=== PATIENT | female | born 1955 | race Caucasian/White ===

== ENCOUNTER → 2023-05-28 09:25 | Outpatient (REF) | payer BC, SELFPAY | LOC: WDC 09:25 | PROVIDERS: ATTENDING PHYSICIAN Internal Medicine; FAMILY PHYSICIAN Internal Medicine | DX: Z12.31 Encounter for screening mammogram for malignant neoplasm of breast (principal) | CPT/HCPCS: 77063; 77067 ==

== ENCOUNTER 2024-07-15 18:01 | Inpatient (IN) | payer BC, SELFPAY ==
[2024-07-15] VITALS (14 sets, daily range): BP systolic 92–139; BP diastolic 70–120; BMI 25.7
[2024-07-15 14:06] LABS: Hematocrit 38.8 % (37.0-47.0); Hemoglobin 12.8 g/dL (12.0-16.0); Mean Corpuscular Hgb 28.4 pg (27.0-31.0); Mean Platelet Volume 11.1 fL (7.4-10.4); Platelet Count 98 10^3/uL (130-400); Red Blood Cell Count 4.51 10^6/uL (4.20-5.40); Red Cell Dist. Width 16.9 % (11.5-14.5); White Blood Cell Count 2.6 10^3/uL (4.8-10.8)
[2024-07-15 14:07] LABS: ALT (SGPT) 40 U/L (0-35); AST (SGOT) 32 U/L (14-36); Albumin 3.8 g/dl (3.5-5.0); Alkaline Phosphatase 121 U/L (38-126); Blood Urea Nitrogen 20 mg/dl (7-17); Calcium 8.9 mg/dl (8.4-10.2); Carbon Dioxide 24 mmol/L (22-30); Chloride 102 mmol/L (98-107); Glucose 112 mg/dl (70-99); Potassium 3.1 mmol/L (3.5-5.1); Sodium 133 mmol/L (135-145); Total Bilirubin 0.5 mg/dl (0.2-1.3); Total Protein 6.9 g/dl (6.3-8.2); eGFR > 60.00
[2024-07-15 14:18] LABS: NT-proBNP 4510 pg/ml; Troponin I 0.013 ng/ml
[2024-07-15 14:55] LABS: % Basophils 1.1 % (0-2); % Eosinophils 4.6 % (0-6); % Immature Granulocytes 0.8 % (0-0.5); % Lymphocytes 14.4 % (20.5-51.1); % Monocytes 6.1 % (1.7-9.3); Absolute Eosinophils 0.1 10^3/uL (0-0.7); Absolute Lymphocytes 0.4 10^3/uL (1.2-3.4); Absolute Monocytes 0.2 10^3/uL (0.1-0.6); Absolute Neutrophils 1.9 10^3/uL (1.4-6.5); Nucleated Red Blood Cells % 0 %
--- NOTE | 2024-07-15 16:43 | ED.GENMED ---
History of Present Illness
<Jacky Lin PA-C - Last Filed: 07/15/24 17:04>
General
Chief Complaint: Breathing Problem
Time Seen by Provider: 07/15/24 13:21
History of Present Illness
History of Present Illness:
68-year-old female with history of stage IV colorectal carcinoma currently being treated with chemotherapy at [place] presents to the emergency department for evaluation of shortness of breath for the past 4 days. This is apparently a known
potential side effect of her chemo regimen. She denies chest pain or leg swelling. Denies orthopnea, shortness of breath is persistent and not affected by exertion. Denies fevers or coughing. No abdominal pain
Review of Systems
<Jacky Lin PA-C - Last Filed: 07/15/24 17:04>
Review of Systems
Allergies reviewed?: Yes
All Other Systems: ROS reviewed and negative except as documented in HPI and ROS
Phy Exam
<aJcky Lin PA-C - Last Filed: 07/15/24 17:04>
Physical Exam
Physical Exam:
GEN: Well appearing, NAD, WDWN
HEENT: Oral mucosa moist, no scleral icterus
Cardiac: Irregular rhythm with variable rate
Lung: No respiratory distress, no tachypnea, dry crackles heard at the bases
MSK: No gross deformity or injuries, no lower extremity edema
Skin: Good color, no pallor or jaundice, no rashes
Neuro: AO x3, moves all extremities freely
Psych: Calm, cooperative
Scores
<CRISTINA Barboza Last Filed: 07/15/24 17:04>
Heart Failure Risk
Heart Failure Risk Score: Yes
History of Stroke or TIA: No
History of intubation for respiratory distress: No
Heart rate on ED arrival >/= 110: Yes
SaO2 <90% on arrival on room air: No
HR >/=110 during 3min walk test (or too ill to perform test): Yes
ECG has acute ischemic changes: No
Urea >/=12mmol/L (BUN 33.6mg/dL): No
Serum CO2>/=35mmol/L: No
Troponin I or T elevated to NC Level (0.4mg/dL): No
NT-proBNP >/=5,000ng/L (5,000pg/ml): Yes
HF Risk Score: 3
Admission Status: HIGH RISK 15.9% Consider SNF treatment or admission to hospital
<Delbert Marley PA-C - Last Filed: 07/15/24 17:18>
Heart Failure Risk
HF Risk Score: 3
Admission Status: HIGH RISK 15.9% Consider SNF treatment or admission to hospital
Course
<Jacky Lin PA-C - Last Filed: 07/15/24 17:04>
Orders/Labs/Results
Orders:
Orders
07/15/24 10:54
Electrocardiogram (*1) Urgent
Reason for Study: Other
Other Reason for Exam: Respiratory Distress
CR Chest - 2 Views Urgent
Comment:
Reason For Exam: respiratory distress
07/15/24 13:47
Complete Blood Count/With Diff Urgent
Comprehensive Metabolic Panel Urgent
NT-proBNP Urgent
TSH Reflex To Free T4 Urgent
Comment: ADD ON
Troponin I Urgent
07/15/24 14:42
CT Chest PE Study Urgent
Comment:
Reason For Exam: SOB, on chemo
07/15/24 17:04
Metoprolol [Lopressor] 25 mg PO NOW STA
07/15/24 17:10
Add On- LAB Urgent
Tests Added?: TSH w/Reflex
Abnormal Lab Results
07/15/24
13:47
WBC 2.6 L 10^3/uL
(4.8-10.8)
RDW 16.9 H %
(11.5-14.5)
Plt Count 98 L 10^3/uL
(130-400)
MPV 11.1 H fL
(7.4-10.4)
Absolute Lymphs (auto) 0.4 L 10^3/uL
(1.2-3.4)
Immature Gran % 0.8 H %
(0-0.5)
Lymphocytes % 14.4 L %
(20.5-51.1)
Sodium 133 L mmol/L
(135-145)
Potassium 3.1 L mmol/L
(3.5-5.1)
BUN 20 H mg/dl
(7-17)
Glucose 112 H mg/dl
(70-99)
ALT 40 H U/L
(0-35)
07/15/24 13:47
07/15/24 13:47
Vital Signs
Initial and Last Documented VS:
Initial Vital Signs
Temp Pulse Resp BP Pulse Ox
97.6 F 104 16 109/70 100
07/15/24 10:49 07/15/24 10:49 07/15/24 10:49 07/15/24 10:49 07/15/24 10:49
Last Documented Vital Signs
Temp Pulse Resp BP Pulse Ox
97.6 F 92 19 133/82 99
07/15/24 10:49 07/15/24 17:10 07/15/24 15:00 07/15/24 17:10 07/15/24 15:30
<Delbert Marley PA-C - Last Filed: 07/15/24 17:18>
Orders/Labs/Results
Orders:
Orders
07/15/24 10:54
Electrocardiogram (*1) Urgent
Reason for Study: Other
Other Reason for Exam: Respiratory Distress
CR Chest - 2 Views Urgent
Comment:
Reason For Exam: respiratory distress
07/15/24 13:47
Complete Blood Count/With Diff Urgent
Comprehensive Metabolic Panel Urgent
NT-proBNP Urgent
TSH Reflex To Free T4 Urgent
Comment: ADD ON
Troponin I Urgent
07/15/24 14:42
CT Chest PE Study Urgent
Comment:
Reason For Exam: SOB, on chemo
07/15/24 17:04
Metoprolol [Lopressor] 25 mg PO NOW STA
07/15/24 17:10
Add On- LAB Urgent
Tests Added?: TSH w/Reflex
Abnormal Lab Results
07/15/24
13:47
WBC 2.6 L 10^3/uL
(4.8-10.8)
RDW 16.9 H %
(11.5-14.5)
Plt Count 98 L 10^3/uL
(130-400)
MPV 11.1 H fL
(7.4-10.4)
Absolute Lymphs (auto) 0.4 L 10^3/uL
(1.2-3.4)
Immature Gran % 0.8 H %
(0-0.5)
Lymphocytes % 14.4 L %
(20.5-51.1)
Sodium 133 L mmol/L
(135-145)
Potassium 3.1 L mmol/L
(3.5-5.1)
BUN 20 H mg/dl
(7-17)
Glucose 112 H mg/dl
(70-99)
ALT 40 H U/L
(0-35)
07/15/24 13:47
07/15/24 13:47
Vital Signs
Initial and Last Documented VS:
Initial Vital Signs
Temp Pulse Resp BP Pulse Ox
97.6 F 104 16 109/70 100
07/15/24 10:49 07/15/24 10:49 07/15/24 10:49 07/15/24 10:49 07/15/24 10:49
Last Documented Vital Signs
Temp Pulse Resp BP Pulse Ox
97.6 F 92 19 133/82 99
07/15/24 10:49 07/15/24 17:10 07/15/24 15:00 07/15/24 17:10 07/15/24 15:30
<Jacky Lin PA-C - Last Filed: 07/15/24 17:04>
MDM/Problems Addressed
MDM/Problems Addressed:
Due to active cancer on chemotherapy the patient was sent for a PE study which was negative for pulmonary embolism. The findings of fibrotic changes to the lower lobes is consistent with her dry crackles on exam, patient states this has been noted
to her before however she does not formally carry a diagnosis of pulmonary fibrosis. Elevated BNP is suspicious for cardiac dysfunction in the setting of her active chemo treatment. She does appear clinically stable and does not appear hypoxic or
in any respiratory distress. Telemetry does show an occasional tachyarrhythmia however it appears to be atrial tachycardia with frequent PACs as there are numerous stretches were visible P waves are seen, I do not feel this represents atrial
fibrillation.
Onc Doc at [facility] is Dr Bartolome Hernandez
Will admit to hospitalists for further cardiac workup
<Jacky Lin PA-C - Last Filed: 07/15/24 17:04>
*Critical Care Note
Total Time (30-74mins, 75-104mins- exclusive of procedures): Not Applicable
<Delbert Marley PA-C - Last Filed: 07/15/24 17:18>
Patient Management
Discussion with other providers: [employer]per
Escalation/DeEscalation of care consider admission/obs:
Spoke to patient's physician at [facility]. Made aware patient staying for further eval. Patient had Echo done in April 2024 at [facility] with reportedly normal EF per report. Agrees with patient staying for further eval
ED Attending Note
<Jacky Lin PA-C - Last Filed: 07/15/24 17:04>
-
Portions of this chart may have been created with voice recognition software.� Occasional wrong word or��sound alike� substitutions may have occurred due to the inherent limitations of voice recognition software.
Discharge Plan
Departure
Patient Disposition: Admit
Date of Disposition: 07/15/24
Time of Disposition: 17:03
Admit to: Telemetry
Presentation/result/management discussed w/ accepting MD/DO: Hospitalist
Discharge Problem:
Atrial ectopic tachycardia, Exertional dyspnea
Referrals:
Tricia Aranda, DO [Family Provider] -
Interventions
Interventions:
*Risk Screen - Suicide Last Done: 07/15/24 10:49
*General Assessment Last Done: 07/15/24 13:54
*Neglect/Abuse Screening Last Done: 07/15/24 10:49
*ED- Fall Risk Assessment Last Done: 07/15/24 13:54
*ED COVID-19 Vaccine History Last Done: 07/15/24 13:54
ED- Cardiac Assessment Last Done: 07/15/24 14:30
ED- Pulmonary Assessment Last Done: 07/15/24 14:30
Discharge Date and Time
Print Language: BENGALI
[2024-07-15] MEDS: LOPRESSOR 25 MG PO (17:10)
--- NOTE | 2024-07-15 17:57 | HPS.HSE ---
Family Physician
-
Family Physician: Tricia Aranda
Chief Complaint
-
Shortness of Breath
History of Present Illness
Patient is a 68 y/o female currently receiving chemotherapy for stage IV colorectal carcinoma who presents with increasing shortness of breath for the past 4 days. Patient specifically describes dyspnea on exertion. She denies shortness of breath
or orthopnea. She denies lower extremity edema. She denies chest pain or palpitations. She denies any prior history of heart failure, and reports she had an echocardiogram earlier this year prior to starting chemotherapy.
Medical History
Past Medical History
Past Medical History: Reports Other
Additional Past Medical History:
Stage IV Colorectal Carcinoma
Fibromyalgia
Past Surgical History: Reports Other
Additional Past Surgical History:
Colon Resection
Cholecystectomy
Tonsillectomy
Social History
Tobacco: Non-smoker
Family History
Family History: Not pertinent
Allergies / Home Medications
Allergies reflects when Allergies were last updated in [facility].
Home Medications with original date entered in [facility]
Allergy/Medication List:
Allergies
Allergy/AdvReac Type Severity Reaction Status Date / Time
fentanyl Allergy Unknown Verified 07/15/24 17:57
naproxen [From Naprosyn] Allergy Hives Verified 07/15/24 17:57
Home Medications
alprazolam 0.25 mg tablet 0.25 mg PO BIDPRN PRN Anxiety 07/15/24
clindamycin phosphate 1 % topical gel 1 applic topical BIDPRN PRN Rash 07/15/24
dexamethasone 4 mg tablet 8 mg PO BIDPRN PRN Prior to Chemo 07/15/24
encorafenib 75 mg capsule (Braftovi) 150 mg PO DAILY 07/15/24
gabapentin 300 mg capsule 300 mg PO BID 07/15/24
levothyroxine 50 mcg tablet 50 mcg PO DAILY 07/15/24
lidocaine HCl 2 % mucosal solution 15 ml PO Q3HPRN PRN mouth sores 07/15/24
minocycline 100 mg capsule 100 mg PO BID 07/15/24
montelukast 10 mg tablet 10 mg PO DAILY 07/15/24
olanzapine 5 mg tablet 5 mg PO HSPRN PRN Nausea 07/15/24
ondansetron HCl 8 mg tablet 8 mg PO Q8HPRN PRN Nausea 07/15/24
prochlorperazine maleate 10 mg tablet 10 mg PO Q6HPRN PRN Nausea 07/15/24
Review of Systems
-
History Source: Patient
A 12 point ROS was completed and negative except as noted: Yes
Constitutional: Denies Fever or Chills
Respiratory: Reports Trouble Breathing; Denies Cough
Cardiac: Denies Chest Pain or Palpitations
Abdomen/GI: Denies Abdominal Pain, Nausea, Vomiting, Diarrhea or Constipated
Physical Exam
Vital Signs
Vital Signs
Temp Pulse Resp BP Pulse Ox
97.6 F 92 19 133/82 99
07/15/24 10:49 07/15/24 17:10 07/15/24 15:00 07/15/24 17:10 07/15/24 15:30
Physical Exam
General: Well Developed, Well Nourished and No Apparent Distress
HEENT: NormoCephalic, Anicteric, Moist mucous membranes and Atraumatic
Respiratory: Rales (Bilateral Bases) and Non Labored Respirations
Cardiac: S1/S2 and Irregular Rhythm; No Tachycardia
GI: Soft, Non Tender, Non Distended and Normal Bowel Sounds
Rectal: Deferred by Provider
Musculoskeletal: No Clubbing, No Cyanosis and No Edema
Skin: Warm and Dry; No Rash
Neuro: Awake, Alert, Oriented and Nonfocal/grossly intact
Psych: Calm
Laboratory Results
-
07/15/24 13:47
07/15/24 13:47
Laboratory Results
Total Bilirubin 0.5 mg/dl (0.2-1.3) 07/15/24 13:47
AST 32 U/L (14-36) 07/15/24 13:47
ALT 40 U/L (0-35) H 07/15/24 13:47
Alkaline Phosphatase 121 U/L (38-126) 07/15/24 13:47
Troponin I 0.013 ng/ml 07/15/24 13:47
Data Reviewed
-
Diagnostic Radiology: Report Reviewed by me
CT Scan: Report Reviewed by me
Lab Data: Labs Reviewed by me
Impression/Plan
-
Dyspnea on Exertion, possibly related to heart failure in setting of elevated vs interstitial pneumonitis as described on CT scan
-Consult Cardiology and Pulmonary
-Check Echocardiogram - Attempt to obtain prior echocardiogram
-Give Lasix 40mg IV x one dose and monitor for response
Tachycardia, possibly Atrial Tachycardia with Frequent PVCs
-Heart rate improved following dose of metoprolol tartrate given in ED
-Monitor on Telemetry
-Continue metoprolol 5mg IV PRN Tachycardia
-Consult Cardiology
Hypothyroidism
-Continue levothyroxine
Stage IV Colorectal Carcinoma
-Currently receiving care at [facility]
DVT Proph: SCDs
Code Status: Full Code
[2024-07-15 18:20] LABS: TSH Reflex To Free T4 2.18 uIU/ml (0.47-4.68)
[2024-07-15] MEDS: KCL ELIXIR 40 MEQ PO (18:54)
--- NOTE | 2024-07-15 18:54 | W.PN.UPDATE ---
Update Note
Progress Note Update
This is an addendum to H&P written by Jovanna Petersen on 07/15/2024.� Patient seen and examined independently with PA.
68-year-old female past medical history of recently diagnosed stage IV colorectal carcinoma in March, hypothyroidism, anxiety/depression, chemotherapy-induced neuropathy, presenting with shortness of breath with exertion 4 days ago.
Was seen by cardiology at [facility] for abnormal EKG.
Has been on chemotherapy for few months.
Vital signs unremarkable.� EKG shows sinus tachycardia.� Patient was noted to have possible atrial tachycardia with heart rate of 110 with frequent PACs.
Labs show potassium of 3.1.� White cell count 2.6.� Platelets of 98.
Chest x-ray shows mild bibasilar atelectasis and/or pneumonia.� CT chest shows peripheral interstitial fibrosis.
Patient with acute CHF exacerbation possibly related to chemotherapy versus pulmonary fibrosis related to chemotherapy.� Replete potassium.� 40 IV Lasix.� Check echo.� Obtain records from [facility].� Cardiology consulted.� Pulmonary
consulted.
She was given 25 of Lopressor for possible atrial tachycardia now in sinus.� Continue as needed.
--- NOTE | 2024-07-15 19:14 | EDRN ---
Lasix 40mg IVP ordered but automatic BP 92/70 and manual BP 94/68. Discussed with Hospitalist MACY Diaz and given verbal order to hold lasix until BP improves. Will communicate this to receiving inpatient RN.
[2024-07-15] MEDS: NEURONTIN 300 MG PO (21:49)
[2024-07-15] MEDS: MINOCIN 100 MG PO (21:49)
[2024-07-15] MEDS: XANAX 0.25 MG PO (22:04)
[2024-07-16 03:00] VITALS: BP 115/76
[2024-07-16] MEDS: TYLENOL 650 MG PO ×2 (03:51→16:18)
[2024-07-16] MEDS: TYLENOL 325 MG PO (03:52)
[2024-07-16] MEDS: SYNTHROID 50 MCG PO (03:57)
--- NOTE | 2024-07-16 04:16 | PTCARENOTE ---
Pt. received from ED for suspected CHF exacerbation. Patient oriented to unit and found to be febrile with a temp of 101.1. Provider notified. Blood cultures,FLU/COVID swabs, and tylenol ordered. Patient refusing blood cultures at this time.
Flu/Covid swabs sent. Patient resting comfortably at this time, plan of care ongoing.
[2024-07-16 04:44] LABS: Hematocrit 38.1 % (37.0-47.0); Hemoglobin 12.4 g/dL (12.0-16.0); Mean Corp Hgb Conc. 32.5 g/dL (33.0-37.0); Mean Corpuscular Hgb 28.6 pg (27.0-31.0); Mean Platelet Volume 10.6 fL (7.4-10.4); Platelet Count 95 10^3/uL (130-400); Red Blood Cell Count 4.33 10^6/uL (4.20-5.40); Red Cell Dist. Width 17.2 % (11.5-14.5); White Blood Cell Count 2.2 10^3/uL (4.8-10.8)
[2024-07-16 04:48] LABS: COVID-19 Antigen Negative (Negative)
[2024-07-16 05:01] LABS: Blood Urea Nitrogen 14 mg/dl (7-17); Calcium 8.6 mg/dl (8.4-10.2); Carbon Dioxide 26 mmol/L (22-30); Chloride 104 mmol/L (98-107); Estimated Creatinine Clearance 78 ml/min; Glucose 108 mg/dl (70-99); HDL Cholesterol 67 mg/dl; LDL Cholesterol, Calculated 38 mg/dl; Magnesium 1.9 mg/dl (1.6-2.3); Potassium 3.6 mmol/L (3.5-5.1); Sodium 134 mmol/L (135-145); Total Cholesterol 125 mg/dl (50-199); Triglyceride 102 mg/dl (10-149); Very Low Density Lipoprotein 20 mg/dl (0-30); eGFR > 60.00
--- NOTE | 2024-07-16 05:27 | VATNOTE ---
ONE FAILED ATTEMPT BY MYSELF TO OBTAIN PERIPHERAL BC ORDERED BY ... PT REFUSED ADDITIONAL ATTEMPTS. PCN MADE AWARE.
[2024-07-16 05:51] VITALS: BMI 25.8
[2024-07-16 07:35] VITALS: BP 137/85
[2024-07-16] MEDS: SINGULAIR 10 MG PO (07:36)
[2024-07-16] MEDS: MINOCIN 100 MG PO (07:36)
[2024-07-16] MEDS: NEURONTIN 300 MG PO ×2 (07:36→20:26)
[2024-07-16 08:52] VITALS: BMI 25.8
--- NOTE | 2024-07-16 09:18 | CON.PUL ---
Consultation
Consultation Request
Date/Time Consultation Requested: 07/16/24
Date/Time Consultation Performed: 07/16/24
Performing Provider: Chriss
Reason for Consultation: CHF
Medical History
-
History of Present Illness:
Patient is a 68 year old F with history of stage IV colorectal carcinoma status post colon resection, fibromyalgia presenting to ER for worsening shortness of breath with exertion over the past 4 days. She feels that this began with initiation
of her chemotherapy treatment which started in the past month. She has noticed mild symptoms prior to this but notes progression over the past few days. She was told on a previous CT scan in January that she had early signs of fibrosis. CT
imaging obtained on admission demonstrating also areas of chronic ILD, unclear chronicity. She has never been diagnosed with lung disease in the distant past, but was a former smoker of 1/2 PPD for 20 years, quit 10 years ago.
Past Medical History
Past Medical History: Other (see list below)
Social History
Tobacco: Former Smoker
Alcohol: None
Drug: None
Family History
Family History: Reviewed & Not Pertinent
Allergies / Home Medications
Allergies
Allergy/AdvReac Type Severity Reaction Status Date / Time
fentanyl Allergy Unknown Verified 07/15/24 17:57
naproxen [From Naprosyn] Allergy Hives Verified 07/15/24 17:57
Home Medications
�Medication �Instructions �Recorded �Confirmed �Last Taken �Type
alprazolam 0.25 mg tablet 0.25 mg PO BIDPRN PRN Anxiety 07/15/24 07/15/24 Unknown History
clindamycin phosphate 1 % topical 1 applic topical BIDPRN PRN Rash 07/15/24 07/15/24 Unknown History
gel
dexamethasone 4 mg tablet 8 mg PO BIDPRN PRN Prior to Chemo 07/15/24 07/15/24 Unknown History
encorafenib 75 mg capsule 150 mg PO DAILY 07/15/24 07/15/24 Unknown History
(Braftovi)
gabapentin 300 mg capsule 300 mg PO BID 07/15/24 07/15/24 Unknown History
levothyroxine 50 mcg tablet 50 mcg PO DAILY 07/15/24 07/15/24 Unknown History
lidocaine HCl 2 % mucosal solution 15 ml PO Q3HPRN PRN mouth sores 07/15/24 07/15/24 Unknown History
minocycline 100 mg capsule 100 mg PO BID 07/15/24 07/15/24 Unknown History
montelukast 10 mg tablet 10 mg PO DAILY 07/15/24 07/15/24 Unknown History
olanzapine 5 mg tablet 5 mg PO HSPRN PRN Nausea 07/15/24 07/15/24 Unknown History
ondansetron HCl 8 mg tablet 8 mg PO Q8HPRN PRN Nausea 07/15/24 07/15/24 Unknown History
prochlorperazine maleate 10 mg 10 mg PO Q6HPRN PRN Nausea 07/15/24 07/15/24 Unknown History
tablet
Review of Systems
-
History Source: Patient
All other systems: Negative unless noted
Vitals / Labs / Diagnostic Testing
Vital Signs
Temp Pulse Resp BP Pulse Ox
97.8 F 80 17 137/85 97
07/16/24 07:35 07/16/24 07:35 07/16/24 07:35 07/16/24 07:35 07/16/24 07:35
Lab Data
07/16/24 03:48
07/16/24 03:48
Microbiology
07/16/24 04:11 Nasal Swab Influenza Types A & B (SARAH BETH) - Final
Negative for Influenza A & B, NAAT
Negative results must be combined with clinical observations
and patient history.
Nucleic Acid Amplification test (NAAT)performed on the
[employer] platform.
Diagnostic Testing:
Physical Exam
-
HEENT: Normocephalic, Anicteric and Moist Mucous Membranes
Cardiovascular: S1/S2 and Regular Rhythm
Respiratory: Clear and Non-Labored Respirations
GI: Soft, Non Distended and Non Tender
Neurology: Awake, Alert, Oriented and No Motor Deficits
Skin: Warm, Dry and Good Color
General: Comfortable and Other (NAD)
Assessment
-
Patient is a 68 year old F with history of stage IV colorectal carcinoma status post colon resection, fibromyalgia presenting to ER for worsening shortness of breath with exertion over the past 4 days. She feels that this began with initiation
of her chemotherapy treatment which started in the past month. She has noticed mild symptoms prior to this but notes progression over the past few days. She was told on a previous CT scan in January that she had early signs of fibrosis. CT
imaging obtained on admission demonstrating also areas of chronic ILD, unclear chronicity. She has never been diagnosed with lung disease in the distant past, but was a former smoker of 1/2 PPD for 20 years, quit 10 years ago. We are asked for
evaluation 07/16/24.
Acute HFpEF, proBNP 4510
ILD unknown chronicity
SOB w/ exertion
Leukopenia
Thrombocytopenia
Hyponatremia
Conditions present [employer]
Stage IV Colorectal Carcinoma
Fibromyalgia
Colon Resection
Cholecystectomy
Tonsillectomy
Plan
No oxygen was needed on admission, currently saturating >90% on RA
Has no need for O2 at home
Prior history of lung disease is not noted --former smoker, but never had PFTs
Possible new ILD, but will need to find prior imaging results for timeline, she has had prior imaging at [facility] and [facility]
Suspect patient has possible new ILD, with superimposed CHF, possible drug induced injury from chemo
Mild edema on exam, she reports drinking excessive water due to dehydration
Just recently started treatment as well with chemo
CXR/CT imaging reviewed
proBNP 4510
No prior ECHO results for review
New ECHO pending
Will obtain complete PFT as well while inpatient
Smoking history noted--10 pack years, quit 10 years ago
Smoking cessation advised
Will need outpatient pulmonary evaluation in our office for PFTs and 6MWT
Reviewed with patient
Risk factors assessed for underlying sleep disordered breathing also noted, recommend outpatient PSG/sleep evaluation
If all work up thus far negative, recommend discharge and FU for further w/u as OP
We will follow
Diagnostic Data
Chest X-Ray: 07/15/24- Mild bibasilar atelectasis and/or pneumonia.
CT Scan: CHEST 07/15/24- Examination is negative for pulmonary embolism. Findings a peripheral interstitial fibrosis, greater in the posterior lung bases, usual interstitial pneumonitis pattern. Mild honeycombing within the posterior lower lungs.
Coronary artery calcifications. Please correlate with symptoms of and risk factors for coronary artery disease, with further workup as clinically appropriate.
Right adrenal gland adenoma, which has maximum diameter 1.8 cm.
Echo:
PFT's:
Reports and relevant images were personally reviewed.
Total time spent on this consultation __56__ minutes which includes review of history, physical exam, medications, laboratory data, personal review of imaging, extensive review of outpatient records, discussion with care team and respiratory therapy.
[2024-07-16 11:25] VITALS: BP 127/81
[2024-07-16 15:02] VITALS: BP 115/68
[2024-07-16] MEDS: LOVENOX 40 MG SC (16:18)
--- NOTE | 2024-07-16 16:18 | W.PN.HOSP.TC ---
Today's Communication/Plan
-
Await cultures
Start ceftriaxone and doxycycline
Infectious disease consultation
Assessment / Plan
Assessment / Plan
Was into see the patient earlier today and patient was downstairs getting echo.
Second visit to the room
68-year-old female with shortness of breath for the past [address] of the chest 07/15/2024-no PE. Findings with the peripheral interstitial fibrosis greater in the posterior lungs UIP pattern. Mild honeycombing within the posterior lower lungs. Coronary artery calcifications. Right adrenal gland adenoma 1.8
cm. Mild fatty liver
EKG-sinus tachycardia with premature supraventricular complexes
Echo 07/16/2024-normal LV systolic function. EF 65 to 70%. LVH. Mild . Moderate MR. Possible mild dilatation of the ascending aorta 3.9 cm.
CVS: S1-S2 normal, sm at apex
Chest: CTA B/L
Abdomen: Soft, NT / Bowel sounds present
Extremities: No edema
# Dyspnea on exertion
Not hypoxic and not on oxygen
CAT scan shows interstitial pneumonitis-UIP pattern on CAT scan
Patient with fevers
Blood cultures pending
COVID-negative
Start ceftriaxone and doxycycline
Infectious disease consultation with fever
Lasix given in the ER-echo without any cardiomyopathy
# Tachycardia-possibly atrial tachycardia with frequent PVCs
Metoprolol was given in the ER with improvement . On PRN BB.
Patient was seen by cardiology at [place] for abnormal EKG in the past
# Hypokalemia-resolved
# Hyponatremia-better
# Leukopenia and thrombocytopenia-likely secondary to chemotherapy
# Stage IV colon carcinoma
Had a normal colonoscopy in 2021 at [facility]
January 2024 she went to [facility] with symptoms of appendicitis, was treated and was advised to get a colonoscopy which she got in March 2024. This showed a right-sided tumor , right hemicolectomy, was done by on April
2024.
Patient states that when they opened up they found carcinomatosis , 15 lymph nodes were positive and also questionable 'spots in the liver.'
the tumor was initially felt to be neuroendocrine tumor but tumor board at [place] felt that this is 'regular' colon cancer with neuroendocrine features. She follows up with Dr. Hernandez at [place].
Started on chemotherapy June 09, 2024. Had 3 cycles so far. Last cycle was Sunday.
Patient states she is on 5-FU, oxaliplatin, Erbitux . Also on Braftovi.
I called and spoke to at [facility]
Patient had an echo preoperatively at [facility] with an EF of 55 to 60%. Per oncologist
Braftovi has GI side effects, cardiomyopathy, rash for which she is prophylactically on minocycline(patient did not have rash). It can also cause fevers 1 to 2 weeks posttreatment. But we need to rule out infection first.
Patient had a PET scan 2 months ago at that time lungs were fine per Dr. Hernandez.
Per Dr. Hernandez patient hold Braftovi. Okay to hold minocycline while the patient is on doxycycline
Lung injury is not one of the common side effects of any of the medicines that she is on at present per discussion with the oncologist.
He did not think at this point patient needed an oncology evaluation here at [facility] but recommended pulmonary evaluation.
# Hypothyroidism-current Levothyroxine.
# Anxiety-continue as needed alprazolam
# Nausea-patient is on as needed prochlorperazine, Zofran, olanzapine as outpatient
# Right adrenal gland adenoma 1.8 cm.OP Follow up
# Chemotherapy-induced neuropathy-continue gabapentin
# Migraines
# Chronic back pain and neck pain
# Mr-xyornr-ogos 10 years ago
# DVT prophylaxis-Lovenox
# Full code
Discussed with pulmonary
Discussed with cardiology
D/W at [facility]
Time spent over 50 min
D/W RN
Part of this note was created using voice recognition system. Occasional wrong word or��sound alike� substitutions may have inadvertently occurred due to the inherent limitations of voice recognition software. If noted kindly bring it to my
attention for correction.
Anticipated Discharge: 24 - 48 hours
Subjective/Interval History
-
Date of Service: July 16, 2024
Objective Data
-
Labs:
Laboratory Results
07/16/24
03:48
WBC 2.2 L*
Hgb 12.4
Hct 38.1
Plt Count 95 L
Sodium 134 L
Potassium 3.6
Chloride 104
Carbon Dioxide 26
BUN 14
Creatinine 0.7
Glucose 108 H
Calcium 8.6
Vital Signs:
Vital Signs
Temp Pulse Resp BP Pulse Ox
99.1 F 101 17 115/68 98
07/16/24 15:02 07/16/24 15:02 07/16/24 15:02 07/16/24 15:02 07/16/24 15:02
I&O
07/15/24 07/16/24 07/17/24
06:59 06:59 06:59
Intake Total 960 / 960
Balance 960 / 960
--- NOTE | 2024-07-16 16:39 | CON.CAR ---
Addendum entered and electronically signed by Jamilah Sahni MD 07/16/24 18:07:
I saw and examined the patient.
The Quality Management Coordinator's note was reviewed and I agree with the note.
Comment: General: Well developed, well nourished in NAD.
Heart: Non displaced PMI, RRR, 3/6 basal systolic murmur, No S3, S4, no rubs.
Lungs: Coarse breath sounds bilateral
Extremities: No clubbing, cyanosis trace to +1 edema bilaterally.
Neuro: Grossly nonfocal, awake, alert and oriented x3.
She is quite complicated. She presented with shortness of breath and decline in activity level that was more than expected usually associated with her chemo days. proBNP was elevated on presentation. Troponin negative. She had declined diuretic.
She has multifactorial dyspnea.
She now is having fevers and being treated for infection. CT scan consistent with interstitial lung disease. She tells me that she feels that even in January her chest CT scan was abnormal and she has a prior history of smoking.
Records requested from [facility].
She is undergoing treatment for stage IV colorectal cancer. She tells me that she has been on 5-FU, oxaliplatin and Braftovi and most recently Erbitux was added to her regimen for which she had 'allergic reaction 'and had to have treatment with
steroids, Benadryl and H2 benoit. She does receive hydration and steroids with her treatments.
She has previously noted to have PAT. She can feel her heart thumping when this occurs at times. Short runs of PAT noted during this hospital stay.
She underwent echocardiogram which is consistent with either hyperdynamic LV function or hypertrophic cardiomyopathy. There is a small LVOT gradient noted and some suggestion in some views of possible systolic anterior motion of the mitral valve.
Mitral regurgitation visually appears moderate in most views.
She does have history of significant Raynaud's for which she has a healed finger ulcer. She has not tolerated Procardia in the past because of hypotension.
Plan at this time:
Dyspnea on exertion which is multifactorial.
She has some degree of volume overload which in part may be iatrogenic and in part related to volume and steroids received during chemo treatment.
She is willing to take 1x low-dose of Lasix 20 mg tonight. She refused in the ER. Would like to try to stabilize her fluid balance. Of note she is having insensible losses with fever.
I did explain to her she may need as needed Lasix as an outpatient pending volume status. Avoid overdiuresis with hyperdynamic heart.
Echocardiogram consistent with hyperdynamic heart (small LVOT gradient and possible SERGEI) versus hypertrophic cardiomyopathy. There is no family history of hypertrophic cardiomyopathy. (Grandfather maternal with heart failure around 70 yo,
maternal cousin with heart failure at an older age, father with A-fib)
Underlying lung disease from smoking and interstitial lung disease likely playing a role defer to pulmonary and primary service
Defer treatment of infection/fever to primary service
Await records from [facility]
Paroxysmal atrial tachycardia Short runs noted
Although she did not tolerate Procardia (used for Raynaud's in the past) we discussed at great length low-dose diltiazem and she is willing to try. Diltiazem CD 120 mg started to help with paroxysmal atrial tachycardia (may also be useful for
hyperdynamic heart and some cardioprotection with 5-FU)
Follow telemetry
Raynaud's
Stable may also be helped with low-dose diltiazem
Stage IV colon cancer
Followed by [facility]
EKGs without QT prolongation.
On discharge she would like to follow-up with me from a cardio oncology point of view.
Original Note:
Consultation
Consultation Request
Date/Time Consultation Performed: 07/16/24
Requesting Provider: Dr. Guzman
Performing Provider: Lili Miller PA-C for Dr. Jamilah Sahni
Reason for Consultation: concern for CHF
Medical History
-
Chief Complaint: MELENDEZ
History of Present Illness:
Patient is a 68 yo F with PMH of stage 4 colorectal carcinoma s/p resection, fibromyalgia, and former smoking who presents to [facility] with MELENDEZ. Patient was seen at [facility] by ATC for paroxysmal atrial tachycardia 01/2024. Patient reports a normal echo at
that time. Patient was then diagnosed with colorectal cancer a few months ago and over the last month she started chemotherapy for her colon cancer, and feels the dyspnea started around the time of initiation of chemo however worsened over the 4
several days. Denies orthopnea or LE edema. Prior CT scan reportedly showed evidence of fibrosis, again noted on CT completed in ER 07/15. She is also noted to have evidence of coronary artery calcifications by CT imaging. She states she had echo
prior to starting chemotherapy which reportedly looked ok. Concern for cardiac component of MELENDEZ as proBNP was elevated at 4510. She denies history of heart failure. Cardiology consulted for assessment of volume status. Trop 0.013.
PMH:
PAT
Stage IV colorectal carcinoma s/p resection, currently on chemotherapy
5-FU, possible coronary spasm
oxaliplatin, possible arrhythmia, spasm, CHF
Erbitux, possible MS or cardiac arrest
Braftovi, possible CHF, QT prolongation
Fibromyalgia
Former smoker
Past Medical History
Past Medical History: Other (in HPI)
Past Surgical History: Bowel Resection (partial colon resection), Cholecystectomy, Gynecological (D&C) and Tonsilectomy
Social History
Tobacco: Former Smoker
Alcohol: None
Personal:
Employment: Employed
Family History
Family History: Reviewed & Not Pertinent
Allergies / Home Medications
Allergy/AdvReac Type Severity Reaction Status Date / Time
fentanyl Allergy Unknown Verified 07/15/24 17:57
naproxen [From Naprosyn] Allergy Hives Verified 07/15/24 17:57
�Medication �Instructions �Recorded �Confirmed �Type
alprazolam 0.25 mg tablet 0.25 mg PO BIDPRN PRN Anxiety 07/15/24 07/15/24 History
clindamycin phosphate 1 % topical 1 applic topical BIDPRN PRN Rash 07/15/24 07/15/24 History
gel
dexamethasone 4 mg tablet 8 mg PO BIDPRN PRN Prior to Chemo 07/15/24 07/15/24 History
encorafenib 75 mg capsule 150 mg PO DAILY 07/15/24 07/15/24 History
(Braftovi)
gabapentin 300 mg capsule 300 mg PO BID 07/15/24 07/15/24 History
levothyroxine 50 mcg tablet 50 mcg PO DAILY 07/15/24 07/15/24 History
lidocaine HCl 2 % mucosal solution 15 ml PO Q3HPRN PRN mouth sores 07/15/24 07/15/24 History
minocycline 100 mg capsule 100 mg PO BID 07/15/24 07/15/24 History
montelukast 10 mg tablet 10 mg PO DAILY 07/15/24 07/15/24 History
olanzapine 5 mg tablet 5 mg PO HSPRN PRN Nausea 07/15/24 07/15/24 History
ondansetron HCl 8 mg tablet 8 mg PO Q8HPRN PRN Nausea 07/15/24 07/15/24 History
prochlorperazine maleate 10 mg 10 mg PO Q6HPRN PRN Nausea 07/15/24 07/15/24 History
tablet
Review of Systems
-
History Source: Patient
All other systems: Negative unless noted
Physical Exam
Vital Signs
Temp Pulse Resp BP Pulse Ox
99.1 F 101 17 115/68 98
07/16/24 15:02 07/16/24 15:02 07/16/24 15:02 07/16/24 15:02 07/16/24 15:02
GEN: NAD. AAOx3
HEENT: EOMI, MMM
LUNGS: RA. CTA B/L without wheeze or rales
CV: Right chest wall port. Reg, S1/S2, 1/6 AHSM
ABD: soft, BS+, NT, ND
EXT: No clubbing, cyanosis, lesions or edema B/L
NEURO: Gross non-focal
SKIN: Warm, dry and pink. No rash
Lab Results
07/16/24 03:48
07/16/24 03:48
Troponin I 0.013 ng/ml 07/15/24 13:47
Xyw-X-Ptvmhmombav Pept 4510 pg/ml 07/15/24 13:47
Impression / Plan
-
PCP: Dr. Tricia Aranda
Primary Pulmonary Disease Specialist: ATC
FCCC: Dr. Bartolome Hernandez
Impression:
Admitted with multifactorial MELENDEZ 07/15/24
LVH on echo concerning for possible hyperdynamic function vs HOCM
Acute HFpEF
Coronary calcification on CT chest 07/15/24
no evidence of MS or vasospasm
Possible newly diagnosed ILD
possible drug induced injury from chemotherapy
Stage IV colorectal carcinoma s/p resection, currently on chemotherapy
5-FU, possible coronary spasm
oxaliplatin, possible arrhythmia, spasm, CHF
Erbitux, possible MS or cardiac arrest
Braftovi, possible CHF, QT prolongation
Fibromyalgia
Former smoker
PAT
ECHO 07/16/24: EF 65-70%, mild LVH, elevated LVOT velocity noted, mild , mod to moderate-severe MR, possible mild SERGEI, possible mild dilation of ascending aorta
Plan:
-Patient is a 68 yo F with PMH of stage 4 colorectal carcinoma s/p resection, fibromyalgia, and former smoking who presents to [facility] with MELENDEZ. Patient was seen at [facility] by ATC for paroxysmal atrial tachycardia 01/2024. Patient reports a normal echo at
that time. Patient was then diagnosed with colorectal cancer a few months ago and over the last month she started chemotherapy for her colon cancer, and feels the dyspnea started around the time of initiation of chemo however worsened over the 4
several days. Denies orthopnea or LE edema. Prior CT scan reportedly showed evidence of fibrosis, again noted on CT completed in ER 07/15. She is also noted to have evidence of coronary artery calcifications by CT imaging. She states she had echo
prior to starting chemotherapy which reportedly looked ok. Concern for cardiac component of MELENDEZ as proBNP was elevated at 4510. She denies history of heart failure. Cardiology consulted for assessment of volume status. Trop 0.013.
-ECG reviewed by me showed sinus tachycardia with PACs. Tele reviewed by me showed brief runs of PAT.
-Called and requested records from primary cardiology office requested by me
-Echo reviewed and summarized above by me. Patient with preserved EF, but mild LVH with turbulent LVOT and cannot exclude HOCM.
-Echo also shows moderate to moderate-severe MR with possible mild SERGEI. Await records and previous echo from within the last 6 months.
-PAT on tele that is asymptomatic and patient describes similar PAT 01/2024. Given PAT and echo findings, will start Cardizem CD 120 mg daily.
-No indication for OAC from a cardiac standpoint.
-Chemotherapy drugs and possible side effects reviewed above. At this time there is no indication of MS or vasospasm. QTc was 448 ms on ECG 07/15/24 and as noted patient with PAT prior to ever starting chemotherapy.
-Patient should have eventual risk factor modification pending her cancer course. Coronary calcifications seen on CT. LDL 38.
-Agree that there is likely mild acute HFpEF exacerbation, pro-BNP 4510. Patient was given Lasix 40 mg IV x1 on 07/15/24 PM. Will start Lasix 20 mg PO daily. Patient was not taking a diuretic prior to admission.
-Fevers being evaluated with cultures pending. Ceftriaxone and doxycycline started.
Data Reviewed
-
EKG: Tracing Personally Visualized and interpreted
CT Scan: Report Reviewed by me
Medical Tests (Nuc Med, Echo etc): Report Reviewed by me
Labs: Labs Reviewed by me
Old Records: Reviewed
[2024-07-16] MEDS: ROCEPHIN 1000 MG IV (16:41)
[2024-07-16] MEDS: STERILE WATER FOR INJECTION 10 ML IV (16:43)
[2024-07-16] MEDS: VIBRAMYCIN 100 MG PO (16:44)
--- NOTE | 2024-07-16 17:35 | CON.ID ---
Consultation
-
Date/Time Consultation Requested: 07/16/2024 1252
Date/Time Consultation Performed: 07/16/2024 1550
Requesting Provider: Dr. Guzman
Performing Provider: Dr. Mckinnon
Reason for Consultation: Fever
Chief Complaint / Past History
History of Present Illness
Brittney Henderson is a 68-year-old female being evaluated at the request of Dr. Guzman in regards to fever. History is obtained from chart review, along with patient interview.
The patient has a history of stage IV colorectal cancer, and was first diagnosed on 04/15/2024. She underwent a colonic resection on 05/13/2024, but notes at that time that multiple lymph nodes were subsequently found to be positive for tumor. She
began chemotherapy on 06/09 with 5FU and oxaliplatin, with an addition of Erbatox and Bractovi within the past week and a half.
She presents to the emergency room following the development of 4 days of increasing shortness of breath. She denies any prior history of similar symptomatology. Because of the progressive shortness of breath and dyspnea on exertion, she was
advised by her oncologist to go to the nearest emergency room for further evaluation.
Since admission, she has developed several episodes of fever, spiking to 101 degrees. She reports no prior history of fever before admission, and does note that at the time of the fevers here she felt cold then hot and then sweaty. She denies any
pain. She denies any headache. She denies any cough or congestion. She denies any abdominal discomfort. There has been no dysuria.
Past History
Additional Past Medical History:
Stage IV colorectal cancer (Dx 04/15/2024); followed at [facility]
Fibromyalgia
Additional Past Surgical History:
Colon resection
Port-a-cath
Cholecystectomy
Tonsillectomy
Allergy History:
fentanyl Allergy (Verified 07/15/24 17:57)
Unknown
naproxen [From Naprosyn] Allergy (Verified 07/15/24 17:57)
Hives
Medications Reviewed: Yes
Current Antibiotics:
Ceftriaxone
Doxycycline
Social History
Tobacco: Non-Smoker
Alcohol: None
Drug: None
Living: With Family
Employment: Employed
Family History
Family History: Not Pertinent
Review of Systems
Vital Signs
Temp Pulse Resp BP Pulse Ox
99.1 F 101 17 115/68 98
07/16/24 15:02 07/16/24 15:02 07/16/24 15:02 07/16/24 15:02 07/16/24 15:02
Physical Exam
Physical Exam
Constitutional: No Acute Distress and Non-toxic
Head: Normocephalic
Eyes: Pupils Equal, No Conjunctival Hemorrhage and Sclera Anicteric
Oral: No Thrush and No Ulcers
Cardiovascular: Regular Rate and S1/S2; Negative S3/S4
Pulmonary: Clear; Negative Wheezes, Rales or Rhonchi
Gastrointestinal: Soft, Non Tender, Non Distended and Normal Bowel Sounds
Genito-Urinary: Negative Maher
Extremities: Edema; Negative Cyanosis or Erythema
Skin: Warm; Negative Rash or Jaundice
Neurological: Awake and Alert
Psychological: Calm
Lab / Diagnostic Study Results
07/16/24 03:48
07/16/24 03:48
Abs Immat Gran (auto) 0.0 10^3/uL (0-0.05) 07/15/24 13:47
Absolute Neuts (auto) 1.9 10^3/uL (1.4-6.5) 07/15/24 13:47
Absolute Lymphs (auto) 0.4 10^3/uL (1.2-3.4) L 07/15/24 13:47
Absolute Monos (auto) 0.2 10^3/uL (0.1-0.6) 07/15/24 13:47
Absolute Basos (auto) 0.0 10^3/uL (0-0.2) 07/15/24 13:47
Immature Gran % 0.8 % (0-0.5) H 07/15/24 13:47
Neutrophils % 73.0 % (42.2-75.2) 07/15/24 13:47
Lymphocytes % 14.4 % (20.5-51.1) L 07/15/24 13:47
Monocytes % 6.1 % (1.7-9.3) 07/15/24 13:47
Eosinophils % 4.6 % (0-6) 07/15/24 13:47
Basophils % 1.1 % (0-2) 07/15/24 13:47
Microbiology Results
Micro:
07/16/24 08:03 Blood Culture - Pending
Blood/Venous
07/16/24 05:23 Blood Culture - Pending
Blood/Venous
07/16/24 04:11 Influenza Types A & B (SARAH BETH) - Final
Nasal Swab Negative for Influenza A & B, NAAT
Negative results must be combined with clinical observations
and patient history.
Nucleic Acid Amplification test (NAAT)performed on the
[employer] platform.
Imaging:
07/15/2024 CT chest (PE study): No evidence of pulmonary embolism. There are peripheral increased interstitial markings within both lungs, greater in the lung bases. The morphologic appearance is suggestive of mild interstitial fibrosis. Suggestion
of mild honeycombing involving the inferior aspect of both lower lobes, with small air-filled cystic foci.
Assessment / Plan
Fever
Leukopenia
Stage IV colorectal CA
- On chemotherapy
Recommendations:
DDx for fevers includes bacterial infection, viral infection, tumor fever or possible medication effect.
Agree with addition of empiric antibiotics for the present.
Blood cultures have been obtained; will follow closely.
Check Legionella and pneumococcal urinary antigens.
Check procalcitonin. If negative, bacterial infection unlikely and abx can be d/c'ed, but if positive, it may be falsely elevated in the context of metastatic cancer, and does not necessarily indicate a bacterial infection.
Monitor white count and temperature curve.
Further recommendations as additional data is returned.
[2024-07-16] MEDS: CARDIZEM CD 120 MG PO (17:58)
[2024-07-16] MEDS: LASIX 20 MG PO (18:01)
[2024-07-16 19:00] VITALS: BP 136/69
[2024-07-16 19:28] LABS: Procalcitonin 0.25 ng/ml (0.0-0.25)
[2024-07-16 19:35] LABS: Urine Albumin 2+ (Neg - Trace); Urine Bilirubin Negative (Negative); Urine Character Clear (Clear); Urine Color Yellow; Urine Glucose Negative (Negative); Urine Ketone Negative (Negative); Urine Leukocyte 3+ (Negative); Urine Nitrite Negative (Negative); Urine Occult Blood 2+ (Negative); Urine Specific Gravity 1.015 (<1.030); Urine Urobilinogen Negative (Neg - 1+)
[2024-07-16 19:57] LABS: Urine Bacteria Moderate (Negative); Urine Red Blood Cell 0-2 /HPF (0-2); Urine White Cell 21-25 /HPF (0-5)
[2024-07-16 20:03] LABS: Urine Urothelial Cell >30 /LPF (FEW)
[2024-07-16 23:00] VITALS: BP 108/77
[2024-07-16] MEDS: COMPAZINE 10 MG PO (23:11)
[2024-07-17] VITALS (7 sets, daily range): BP systolic 99–132; BP diastolic 70–77; BMI 25.7
[2024-07-17] MEDS: TYLENOL 650 MG PO (03:01)
[2024-07-17] MEDS: SYNTHROID 50 MCG PO (05:27)
[2024-07-17] MEDS: VIBRAMYCIN 100 MG PO (05:27)
[2024-07-17] MEDS: COMPAZINE 10 MG PO (05:43)
[2024-07-17 06:28] LABS: Blood Urea Nitrogen 12 mg/dl (7-17); Calcium 8.6 mg/dl (8.4-10.2); Carbon Dioxide 23 mmol/L (22-30); Chloride 105 mmol/L (98-107); Estimated Creatinine Clearance 91 ml/min; Glucose 107 mg/dl (70-99); Potassium 2.8 mmol/L (3.5-5.1); Sodium 135 mmol/L (135-145); eGFR > 60.00
[2024-07-17 06:54] LABS: Absolute Neutrophils -Man Diff 1.3 10^3/uL (1.4-6.5); Band Neutrophils 0 % (0-3); Hematocrit 39.3 % (37.0-47.0); Hemoglobin 13.2 g/dL (12.0-16.0); Lymphocytes 17 % (20-51); Mean Corp Hgb Conc. 33.6 g/dL (33.0-37.0); Mean Corpuscular Hgb 28.6 pg (27.0-31.0); Mean Corpuscular Volume 85.2 fL (81.0-99.0); Mean Platelet Volume 11.5 fL (7.4-10.4); Monocytes 3 % (2-9); Platelet Count 107 10^3/uL (130-400); Red Blood Cell Count 4.61 10^6/uL (4.20-5.40); Red Cell Dist. Width 17.4 % (11.5-14.5); Segmented Neutrophils 69 % (42-75)
[2024-07-17 06:55] LABS: Anisocytosis 1+; Atypical Lymphocytes 10 %; Eosinophils 1 % (0-6); Normal RBC Morphology No; Platelets Checked Yes
[2024-07-17 07:05] LABS: Total Cells Counted 100
[2024-07-17] MEDS: CARDIZEM CD 120 MG PO ×2 (07:37→13:16)
[2024-07-17] MEDS: NEURONTIN 300 MG PO ×2 (07:40→21:24)
[2024-07-17] MEDS: SINGULAIR 10 MG PO (07:41)
[2024-07-17] MEDS: KCL 270 MEQ IV (07:53)
[2024-07-17] MEDS: KCL 40 MEQ PO (07:54)
[2024-07-17 08:37] LABS: Magnesium 1.8 mg/dl (1.6-2.3)
--- NOTE | 2024-07-17 09:11 | W.PN.HOSP.TC ---
Addendum entered and electronically signed by Pasquale Guzman MD 07/17/24 09:57:
Offered to talk to family. Patient declined .
Original Note:
Today's Communication/Plan
-
Hold Braftovi
Antibiotics
Follow temperature curve
Follow white count
Management of tachycardia
Assessment / Plan
Assessment / Plan
68-year-old pleasant female with shortness of breath for the past 4 days [employer] MARK[employer]
CT of the chest 07/15/2024-no PE. Findings with the peripheral interstitial fibrosis greater in the posterior lungs UIP pattern. Mild honeycombing within the posterior lower lungs. Coronary artery calcifications. Right adrenal gland adenoma 1.8
cm. Mild fatty liver
EKG-sinus tachycardia with premature atrial complexes
Echo 07/16/2024-normal LV systolic function. EF 65 to 70%. LVH. Mild . Moderate MR. Possible mild dilatation of the ascending aorta 3.9 cm.
CVS: S1-S2 normal, sm at apex
Chest: rales at bases
Abdomen: Soft, NT / Bowel sounds present
Extremities: No edema
# Dyspnea on exertion
Not hypoxic and not on oxygen
CAT scan shows interstitial pneumonitis-UIP pattern on CAT scan
Patient also with fevers
Blood cultures neg so far
COVID-negative
Started ceftriaxone and doxycycline
Procal really at the cut off neg, could try a short course of AB. Also urine Cx pending.
Infectious disease consultation appreciated
Lasix given last night-with elevated Pro BNP-echo without any cardiomyopathy, has LVH
# Tachycardia-possibly atrial tachycardia with frequent PACs
Metoprolol was given in the ER with improvement .
Patient was seen by cardiology at [place] for abnormal EKG in the past
Echo with hyperdynamic LV-heart rate was high this morning avoid further diuresis
Continue Cardizem
# Hypokalemia-replace p.o. and IV
# Hyponatremia-better
# Leukopenia and thrombocytopenia-likely secondary to chemotherapy
# Stage IV colon carcinoma
Had a normal colonoscopy in 2021 at [facility]
January 2024 she went to [facility] with symptoms of appendicitis, was treated and was advised to get a colonoscopy which she got in March 2024. This showed a right-sided tumor , right hemicolectomy, was done by on April
2024.
During surgery , she was found to have carcinomatosis , 15 lymph nodes were positive and also focal hypermetabolic lesion in the liver on the PET .
The tumor was initially felt to be neuroendocrine tumor but tumor board at [facility] felt that this is 'regular' colon cancer with neuroendocrine features. She follows up with Dr. Hernandez at [facility].
Started on chemotherapy June 09, 2024. Had 3 cycles so far. Last cycle was Sunday.
Patient states she is on 5-FU, oxaliplatin, Erbitux . Also on Braftovi.
I called and spoke to at [facility]
Patient had an echo preoperatively at [facility] with an EF of 55 to 60%. Per oncologist
Braftovi has GI side effects, cardiomyopathy, rash for which she is prophylactically on minocycline(patient did not have rash). It can also cause fevers 1 to 2 weeks posttreatment. But we need to rule out infection first.
Patient had a PET scan 2 months ago at that time lungs were fine per Dr. Hernandez.
Per Dr. Hernandez patient hold Braftovi. Okay to hold minocycline while the patient is on doxycycline
Lung injury is not one of the common side effects of any of the medicines that she is on at present per discussion with the oncologist.
He did not think at this point patient needed an oncology evaluation here at [facility] but recommended pulmonary evaluation.
# Hypothyroidism-continue Levothyroxine.
# Anxiety-continue as needed alprazolam
# Nausea-patient is on as needed prochlorperazine, Zofran, olanzapine as outpatient
# Right adrenal gland adenoma 1.8 cm.OP Follow up
# Chemotherapy-induced neuropathy-continue gabapentin
# Coronary artery calcification-needs further follow-up with cardiology as outpatient
# Migraines
# Chronic back pain and neck Pain/Fibromyalgia
# Vm-[id number]-gmwq 10 years ago
# DVT prophylaxis-Lovenox
# Full code
Pt took her on Braftovi last night . Advised not to take meds like that and hold any more Braftovi.
Discussed with cardiology
D/W at [facility] on 07/16/2024
D/W RN
time spent 40 min
PET scan at [facility]-
chest-left prevascular lymph node 2.20.6 maintenance planner
Lung 7 mm right perifissural nodule could represent an intrapulmonary lymph node. 6 mm right perifissural nodule could represent an intrapulmonary lymph node. No hypermetabolic pulmonary nodules.
Subsegmental atelectatic changes at the right lower lobe paravertebral region. Atelectatic change in the bilateral lung bases. Limited assessment of the lungs due to low dose, thick slice, low lung volume technique during shallow breathing. No
pleural effusion.
Atherosclerotic calcification of the aortic arch and coronaries.
Liver-focal hypermetabolic lesion in the the region of hypermetabolism measures 1.6 into 1.2 cm. Postcholecystectomy. No suspicious lesions in spleen and pancreas
Lymphadenopathy in the right lower quadrant and right iliac lymph nodes. Mesenteric lymph node at the right lower quadrant adjacent to the cecum.
Large hypermetabolic mass at the cecal region consistent biopsy-proven poorly differentiated endocrine tumor
Part of this note was created using voice recognition system. Occasional wrong word or��sound alike� substitutions may have inadvertently occurred due to the inherent limitations of voice recognition software. If noted kindly bring it to my
attention for correction.
Anticipated Discharge: 24 - 48 hours
Subjective/Interval History
-
Date of Service: July 17, 2024
Objective Data
-
Labs:
Laboratory Results
07/17/24
05:32
WBC 2.0 L*
Hgb 13.2
Hct 39.3
Plt Count 107 L
Sodium 135
Potassium 2.8 L
Chloride 105
Carbon Dioxide 23
BUN 12
Creatinine 0.6
Glucose 107 H
Calcium 8.6
Vital Signs:
Vital Signs
Temp Pulse Resp BP Pulse Ox
98.6 F 136 16 118/81 98
07/17/24 07:00 07/17/24 07:37 07/17/24 07:00 07/17/24 07:37 07/17/24 07:00
I&O
07/16/24 07/17/24 07/18/24
06:59 06:59 06:59
Intake Total 3240 / 3240
Balance 3240 / 3240
--- NOTE | 2024-07-17 10:34 | W.PN.PUL3 ---
Today's Communication / Plan
-
Fevers noted, UA with possible UTI, culture pending--narrow abx
PFT pending
ECHO showing stable findings, mild /mod MR, mild PH
Patient feels her chemotx may be contributing to complaints, she will need to discuss with her Onc team
Can assess for d/c planning if results are normal
Assessment
-
Patient is a 68 year old F with history of stage IV colorectal carcinoma status post colon resection, fibromyalgia presenting to ER for worsening shortness of breath with exertion over the past 4 days. She feels that this began with initiation
of her chemotherapy treatment which started in the past month. She has noticed mild symptoms prior to this but notes progression over the past few days. She was told on a previous CT scan in January that she had early signs of fibrosis. CT
imaging obtained on admission demonstrating also areas of chronic ILD, unclear chronicity. She has never been diagnosed with lung disease in the distant past, but was a former smoker of 1/2 PPD for 20 years, quit 10 years ago. We are asked for
evaluation 07/16/24.
Acute HFpEF, proBNP 4510
ILD unknown chronicity
SOB w/ exertion
Leukopenia
Thrombocytopenia
Hyponatremia
Fever, possible UTI
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
Stage IV Colorectal Carcinoma
Fibromyalgia
Colon Resection
Cholecystectomy
Tonsillectomy
Plan
No oxygen was needed on admission, currently saturating >90% on RA
Has no need for O2 at home
Prior history of lung disease is not noted --former smoker, but never had PFTs
Possible new ILD, but will need to find prior imaging results for timeline, she has had prior imaging at [facility] and [facility]
Suspect patient has possible new ILD, with superimposed CHF, possible drug induced injury from chemo
Mild edema on exam, she reports drinking excessive water due to dehydration
Just recently started treatment as well with chemo
CXR/CT imaging reviewed
proBNP 4510
No prior ECHO results for review
New ECHO reviewed- stable EF/mild /moderate MR, mild PH PAP 30
Will obtain complete PFT as well while inpatient--pending
Smoking history noted--10 pack years, quit 10 years ago
Smoking cessation advised
Fever noted-UA seems positive, culture pending
Ongoing w/u per team
Will need outpatient pulmonary evaluation in our office for PFTs and 6MWT
Reviewed with patient
Risk factors assessed for underlying sleep disordered breathing also noted, recommend outpatient PSG/sleep evaluation
If all work up thus far negative, recommend discharge and FU for further w/u as OP
Discharge planning per team
Diagnostic Data
Chest X-Ray: 07/15/24- Mild bibasilar atelectasis and/or pneumonia.
CT Scan: CHEST 07/15/24- Examination is negative for pulmonary embolism. Findings a peripheral interstitial fibrosis, greater in the posterior lung bases, usual interstitial pneumonitis pattern. Mild honeycombing within the posterior lower lungs.
Coronary artery calcifications. Please correlate with symptoms of and risk factors for coronary artery disease, with further workup as clinically appropriate.
Right adrenal gland adenoma, which has maximum diameter 1.8 cm.
Echo: 07/16/24- Normal left ventricular systolic function. Left ventricular ejection fraction is 65-70%. LVH Elevated LVOT velocity is noted Mild aortic stenosis. Systolic anterior motion of the mitral valve and moderate mitral regurgitation.
Possible mild dilation of the ascending aorta. 3.9 cm. Image quality may limit accuracy of measurement. No prior study for comparison
PFT's:
Reports and relevant images were personally reviewed.
Total time spent on this consultation __51__ minutes which includes review of history, physical exam, medications, laboratory data, personal review of imaging, extensive review of outpatient records, discussion with care team and respiratory therapy.
Subjective Data
-
Date of Service:
Date of Service: July 17, 2024
Chief Complaint: Pulmonary Follow Up
Subjective:
Received another dose of chemo and felt immediately worse
Remains otherwise stable on RA
Objective Data
Data Reviewed
Vital Signs / I&O / Oxygen:
Vital Signs
Temp Pulse Resp BP Pulse Ox
98.6 F 136 16 118/81 98
07/17/24 07:00 07/17/24 07:37 07/17/24 07:00 07/17/24 07:37 07/17/24 07:00
Intake and Output
07/16/24 07/17/24 07/18/24
06:59 06:59 06:59
Intake Total 3240 / 3240
Balance 3240 / 3240
SaO2 98
Physical Exam
General: Comfortable and Other (NAD)
HEENT: Normocephalic, Anicteric and Moist Mucous Membranes
Cardiovascular: S1-S2 and Regular Rhythm
Respiratory: Clear and Non-Labored Respirations
GI: Soft, Non Distended and Non Tender
Neurology: Awake, Alert, Oriented and No Motor Deficits
Skin: Warm, Dry and Good Color
Labs/Micro/Reports
Lab Data
07/17/24 05:32
07/17/24 05:32
Microbiology
07/16/24 08:03 Blood/Venous Blood Culture - Preliminary
No Growth in 24 hours- Final report to follow
07/16/24 00:00 Urine Legionella Urinary Antigen - Final
Negative for Legionella pneumophila Serogroup 1 antigen.
A negative result does not rule out the possiblity of
Legionella infection due to other serogroups or species of
Legionella. Clinical correlation is recommended.
07/16/24 00:00 Urine Streptococcus pneumoniae Antigen (M - Final
Negative for Streptococcus pneumoniae antigen.
A negative result does not exclude infection with
Streptococcus pneumoniae. Clinical correlation is
recommended.
07/16/24 05:23 Blood/Venous Blood Culture - Preliminary
No Growth in 24 hours- Final report to follow
07/16/24 04:11 Nasal Swab Influenza Types A & B (SARAH BETH) - Final
Negative for Influenza A & B, NAAT
Negative results must be combined with clinical observations
and patient history.
Nucleic Acid Amplification test (NAAT)performed on the
[employer] platform.
--- NOTE | 2024-07-17 10:46 | W.PN.CARDCBS ---
Addendum entered and electronically signed by Samy Sy DO 07/17/24 15:20:
I saw and examined the patient.
The Administrator Pesticide's note was reviewed and I agree with the note.
Comment:
Plan:
Increase Cardizem for better heart rate control.
Previous atrial tachycardia. She has been sinus tachycardia with PACs on the monitor
She stopped her Braftovi after being in touch with Ricardo Tabares. She had been told to stop it previously she states but was unaware of this. She was told that this could contribute to her tachycardia.
Echo July 16 shows preserved LV function with hyperdynamic function.
Will hold on further diuresis.
QTc is stable.
Will arrange outpatient follow-up with her department clinician.
Original Note:
Today's Communication / Plan
-
Extra Cardizem CD 120 mg now and then increased to 180 mg daily
She has stopped her Braftovi after talking to [facility]
Impression / Plan
-
PCP: Dr. Tricia Aranda
Primary [facility]: [facility]
Impression:
Admitted with multifactorial MELENDEZ 07/15/24
LVH on echo concerning for possible hyperdynamic function vs HOCM
Acute HFpEF
Coronary calcification on CT chest 07/15/24
no evidence of SD or vasospasm
Possible newly diagnosed ILD
possible drug induced injury from chemotherapy
Stage IV colorectal carcinoma s/p resection, currently on chemotherapy
5-FU, possible coronary spasm
oxaliplatin, possible arrhythmia, spasm, CHF
Erbitux, possible SD or cardiac arrest
Braftovi, possible CHF, QT prolongation
Fibromyalgia
Former smoker
PAT
Raynaud's
ECHO 07/16/24: EF 65-70%, mild LVH, elevated LVOT velocity noted, mild , mod to moderate-severe MR, possible mild SERGEI, possible mild dilation of ascending aorta
Plan:
-5/22/25 morning events reviewed with patient, she was SOB with walking, no resting SOB. Tele reviewed by me 07/17/24 and looks like sinus tachycardia with PACs. Patient with an cognos analyst fever 07/17/24 as well. Patient had PAT on the monitor
07/16/24.
-New to Cardizem CD 120 mg daily 07/16/24, will give an additional dose of Cardizem CD 120 mg x1 now and then increase standing dose to 180 mg daily starting 07/18/24.
-Echo as noted above was reviewed with patient in the room on 07/16/2024, discussed the evidence of hyperdynamic heart (small LVOT gradient and possible SERGEI) versus hypertrophic cardiomyopathy. There is no family history of hypertrophic
cardiomyopathy.
-There was also concern for mild volume overload and patient was agreeable to a single dose of Lasix 20 mg PO x 1 on 07/16/2024. Weight is down 1 pound overnight and remained stable on RA
-Chemotherapy drugs and possible side effects reviewed above. Patient wonders if taking a dose of Braftovi caused some of her symptoms 07/17/24 AM and she talked with [facility] and they told her to stop Braftovi. At this time there is no indication of SD
or vasospasm.
-QTc was 448 ms on ECG 07/15/24 and as noted patient with PAT prior to ever starting chemotherapy.
-Patient should have eventual risk factor modification pending her cancer course. Coronary calcifications seen on CT. LDL 38.
HPI: Patient is a 68 yo F with PMH of stage 4 colorectal carcinoma s/p resection, fibromyalgia, and former smoking who presents to [facility] with MELENDEZ. Patient was seen at [facility] by ATC for paroxysmal atrial tachycardia 01/2024. Patient reports a normal echo
at that time. Patient was then diagnosed with colorectal cancer a few months ago and over the last month she started chemotherapy for her colon cancer, and feels the dyspnea started around the time of initiation of chemo however worsened over the 4
several days. Denies orthopnea or LE edema. Prior CT scan reportedly showed evidence of fibrosis, again noted on CT completed in ER 07/15. She is also noted to have evidence of coronary artery calcifications by CT imaging. She states she had echo
prior to starting chemotherapy which reportedly looked ok. Concern for cardiac component of MELENDEZ as proBNP was elevated at 4510. She denies history of heart failure. Cardiology consulted for assessment of volume status. Trop 0.013.
Progress Note - [facility]
Subjective
Date of Service: July 17, 2024
She feels SOB walking to bathroom
Objective
Labs:
07/17/24 05:32
07/17/24 05:32
Labs
Hgb 13.2 g/dL (12.0-16.0) 07/17/24 05:32
Hct 39.3 % (37.0-47.0) 07/17/24 05:32
Plt Count 107 10^3/uL (130-400) L 07/17/24 05:32
Sodium 135 mmol/L (135-145) 07/17/24 05:32
Potassium 2.8 mmol/L (3.5-5.1) L 07/17/24 05:32
BUN 12 mg/dl (7-17) 07/17/24 05:32
Creatinine 0.6 mg/dL (0.6-1.0) 07/17/24 05:32
Glucose 107 mg/dl (70-99) H 07/17/24 05:32
Troponins
07/15/24
13:47
Troponin I 0.013
Vital Signs and I&O:
Vital Signs
Temp Pulse Resp BP Pulse Ox
98.6 F 136 16 118/81 98
07/17/24 07:00 07/17/24 07:37 07/17/24 07:00 07/17/24 07:37 07/17/24 07:00
Vital Signs
Temp Pulse Resp BP Pulse Ox
98.6 F 136 16 118/81 98
07/17/24 07:00 07/17/24 07:37 07/17/24 07:00 07/17/24 07:37 07/17/24 07:00
Intake & Output
07/15/24 07/16/24 07/17/24 07/18/24
06:59 06:59 06:59 06:59
Intake Total 3240 / 3240
Balance 3240 / 3240
Physical Exam
Physical Exam
GEN: NAD. AAOx3
HEENT: EOMI
LUNGS: RA. No wheeze
CV: Sinus tach on tele
ABD: ND
EXT: No edema B/L
NEURO: Gross non-focal
SKIN: No rash
--- NOTE | 2024-07-17 12:29 | PTCARENOTE ---
verbal report provided to Aj SCANLON.
--- NOTE | 2024-07-17 15:48 | W.PN.ID1 ---
Date of Service
Date of Service: July 17, 2024
Today's Communication
D/C antibiotics and observe.
Assessment / Plan
Fever
Leukopenia
Stage IV colorectal CA
- On chemotherapy
Recommendations:
DDx for fevers includes bacterial infection, viral infection, tumor fever or possible medication effect.
Blood cultures no growth thus far.
Legionella and pneumococcal urinary antigens negative.
Procalcitonin negative.
D/C further abx with close monitoring.
Follow white count and temperature curve.
����������������������������������������������������������
Chief Complaint
-: Fever
Subjective / Review of Systems
Patient seen and examined. Overall feels well today.
Vital Signs / Physical Exam
Vital Signs
Vital Signs
Temp Pulse Resp BP Pulse Ox
98.1 F 103 17 132/77 100
07/17/24 15:25 07/17/24 15:25 07/17/24 15:25 07/17/24 15:25 07/17/24 15:25
Physical Exam
Constitutional: No Acute Distress and Non-toxic
Eyes: Sclera Anicteric
Cardiovascular: S1/S2; Negative S3/S4
Pulmonary: Non Labored; Negative Wheezes or Rales
Gastrointestinal: Soft and Non Tender
Neurological: Awake and Alert
Psychological: Calm
Objective Data
Lab Data
Lab Results
07/17/24 05:32
07/17/24 05:32
Estimated Creat Clear 91 ml/min 07/17/24 05:32
Total Bilirubin 0.5 mg/dl (0.2-1.3) 07/15/24 13:47
AST 32 U/L (14-36) 07/15/24 13:47
ALT 40 U/L (0-35) H 07/15/24 13:47
Alkaline Phosphatase 121 U/L (38-126) 07/15/24 13:47
Most recent labs reviewed.
Micro Results:
07/16/24 08:03 Blood Culture - Preliminary
Blood/Venous No Growth in 24 hours- Final report to follow
07/16/24 00:00 Legionella Urinary Antigen - Final
Urine Negative for Legionella pneumophila Serogroup 1 antigen.
A negative result does not rule out the possiblity of
Legionella infection due to other serogroups or species of
Legionella. Clinical correlation is recommended.
Streptococcus pneumoniae Antigen (M - Final
Negative for Streptococcus pneumoniae antigen.
A negative result does not exclude infection with
Streptococcus pneumoniae. Clinical correlation is
recommended.
07/16/24 05:23 Blood Culture - Preliminary
Blood/Venous No Growth in 24 hours- Final report to follow
07/16/24 19:25 Urine Culture - Pending
Urine
07/16/24 04:11 Influenza Types A & B (SARAH BETH) - Final
Nasal Swab Negative for Influenza A & B, NAAT
Negative results must be combined with clinical observations
and patient history.
Nucleic Acid Amplification test (NAAT)performed on the
[employer] platform.
Imaging:
07/15/2024 CT chest (PE study): No evidence of pulmonary embolism. There are peripheral increased interstitial markings within both lungs, greater in the lung bases. The morphologic appearance is suggestive of mild interstitial fibrosis. Suggestion
of mild honeycombing involving the inferior aspect of both lower lobes, with small air-filled cystic foci.
Care Review
Plan reviewed with: Physician (Hospitalist)
[2024-07-17] MEDS: LOVENOX 40 MG SC (16:53)
[2024-07-17] MEDS: ZOFRAN 8 MG PO (17:27)
[2024-07-18 03:00] VITALS: BP 105/72
[2024-07-18 04:24] LABS: Hematocrit 37.9 % (37.0-47.0); Hemoglobin 12.4 g/dL (12.0-16.0); Mean Corp Hgb Conc. 32.7 g/dL (33.0-37.0); Mean Corpuscular Hgb 28.6 pg (27.0-31.0); Mean Corpuscular Volume 87.5 fL (81.0-99.0); Mean Platelet Volume 11.1 fL (7.4-10.4); Platelet Count 100 10^3/uL (130-400); Red Blood Cell Count 4.33 10^6/uL (4.20-5.40); Red Cell Dist. Width 17.2 % (11.5-14.5); White Blood Cell Count 2.3 10^3/uL (4.8-10.8)
[2024-07-18 04:35] LABS: Blood Urea Nitrogen 12 mg/dl (7-17); Calcium 8.7 mg/dl (8.4-10.2); Carbon Dioxide 23 mmol/L (22-30); Chloride 104 mmol/L (98-107); Estimated Creatinine Clearance 78 ml/min; Glucose 115 mg/dl (70-99); Magnesium 1.7 mg/dl (1.6-2.3); Potassium 3.5 mmol/L (3.5-5.1); Sodium 134 mmol/L (135-145); eGFR > 60.00
[2024-07-18 06:00] VITALS: BMI 25.9
[2024-07-18] MEDS: SYNTHROID 50 MCG PO (06:29)
[2024-07-18 07:35] LABS: % Basophils 0.4 % (0-2); % Eosinophils 2.2 % (0-6); % Immature Granulocytes 0.4 % (0-0.5); % Lymphocytes 47.6 % (20.5-51.1); % Monocytes 14.2 % (1.7-9.3); % Neutrophils 35.2 % (42.2-75.2); Absolute Eosinophils 0.1 10^3/uL (0-0.7); Absolute Lymphocytes 1.1 10^3/uL (1.2-3.4); Absolute Monocytes 0.3 10^3/uL (0.1-0.6); Absolute Neutrophils 0.8 10^3/uL (1.4-6.5); Nucleated Red Blood Cells % 0 %
--- NOTE | 2024-07-18 07:39 | PTCARENOTE ---
Lab informed this RN of critical ANC= 0.8. made aware.
[2024-07-18] MEDS: SINGULAIR 10 MG PO (07:52)
[2024-07-18] MEDS: NEURONTIN 300 MG PO ×2 (07:52→19:36)
[2024-07-18] MEDS: CARDIZEM CD 180 MG PO (07:52)
[2024-07-18 07:55] VITALS: BP 107/64
[2024-07-18] MEDS: MAGNESIUM OXIDE 500 MG PO (08:53)
--- NOTE | 2024-07-18 10:16 | W.PN.PUL3 ---
Today's Communication / Plan
-
PFT reviewed, no acute issues, would perform breathing exercises/repeat PFT as OP
SOB may be related to medication side effects, would have to monitor off and see/re-eval
Otherwise, no acute process confirmed, can assess for d/c planning
Will arrange OP FU for further testing--I reviewed this with patient
Nothing further to offer from our standpoint, we will sign off at this time
Please call with questions
Assessment
-
Patient is a 68 year old F with history of stage IV colorectal carcinoma status post colon resection, fibromyalgia presenting to ER for worsening shortness of breath with exertion over the past 4 days. She feels that this began with initiation
of her chemotherapy treatment which started in the past month. She has noticed mild symptoms prior to this but notes progression over the past few days. She was told on a previous CT scan in January that she had early signs of fibrosis. CT
imaging obtained on admission demonstrating also areas of chronic ILD, unclear chronicity. She has never been diagnosed with lung disease in the distant past, but was a former smoker of 1/2 PPD for 20 years, quit 10 years ago. We are asked for
evaluation 07/16/24.
Acute HFpEF, proBNP 4510
ILD unknown chronicity
SOB w/ exertion
Leukopenia
Thrombocytopenia
Hyponatremia
Fever, possible UTI
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
Stage IV Colorectal Carcinoma
Fibromyalgia
Colon Resection
Cholecystectomy
Tonsillectomy
Plan
No oxygen was needed on admission, currently saturating >90% on RA
Has no need for O2 at home
Prior history of lung disease is not noted --former smoker, but never had PFTs
Possible new ILD, but will need to find prior imaging results for timeline, she has had prior imaging at [facility] and [facility]
Suspect patient has possible new ILD, with superimposed CHF, possible drug induced injury from chemo
Mild edema on exam, she reports drinking excessive water due to dehydration
Just recently started treatment as well with chemo
CXR/CT imaging reviewed
proBNP 4510
No prior ECHO results for review
New ECHO reviewed- stable EF/mild /moderate MR, mild PH PAP 30
Will obtain complete PFT as well while inpatient--reviewed
Showing possible hyperinflation w/ air trapping, we discussed breathing exercises
She is also very tall at baseline, which may affect her TLC
Would repeat as OP
Smoking history noted--10 pack years, quit 10 years ago
Smoking cessation advised
Fever noted-UA seems positive, culture pending
Ongoing w/u per team
Will need outpatient pulmonary evaluation in our office for PFTs and 6MWT
Reviewed with patient
Risk factors assessed for underlying sleep disordered breathing also noted, recommend outpatient PSG/sleep evaluation
If all work up thus far negative, recommend discharge and FU for further w/u as OP
Discharge planning per team
Diagnostic Data
Chest X-Ray: 07/15/24- Mild bibasilar atelectasis and/or pneumonia.
CT Scan: CHEST 07/15/24- Examination is negative for pulmonary embolism. Findings a peripheral interstitial fibrosis, greater in the posterior lung bases, usual interstitial pneumonitis pattern. Mild honeycombing within the posterior lower lungs.
Coronary artery calcifications. Please correlate with symptoms of and risk factors for coronary artery disease, with further workup as clinically appropriate.
Right adrenal gland adenoma, which has maximum diameter 1.8 cm.
Echo: 07/16/24- Normal left ventricular systolic function. Left ventricular ejection fraction is 65-70%. LVH Elevated LVOT velocity is noted Mild aortic stenosis. Systolic anterior motion of the mitral valve and moderate mitral regurgitation.
Possible mild dilation of the ascending aorta. 3.9 cm. Image quality may limit accuracy of measurement. No prior study for comparison
PFT's:
Reports and relevant images were personally reviewed.
Total time spent on this consultation __41__ minutes which includes review of history, physical exam, medications, laboratory data, personal review of imaging, extensive review of outpatient records, discussion with care team and respiratory therapy.
Subjective Data
-
Date of Service:
Date of Service: July 18, 2024
Chief Complaint: Pulmonary Follow Up
Subjective:
No new complaints, stable on RA
Objective Data
Data Reviewed
Vital Signs / I&O / Oxygen:
Vital Signs
Temp Pulse Resp BP Pulse Ox
97.0 F 77 16 107/64 98
07/18/24 07:55 07/18/24 07:55 07/18/24 07:55 07/18/24 07:55 07/18/24 07:55
Intake and Output
07/17/24 07/18/24 07/19/24
06:59 06:59 06:59
Intake Total 3240 / 3240 990 / 990
Balance 3240 / 3240 990 / 990
SaO2 98
Physical Exam
General: Comfortable and Other (NAD)
HEENT: Normocephalic, Anicteric and Moist Mucous Membranes
Cardiovascular: S1-S2 and Regular Rhythm
Respiratory: Clear and Non-Labored Respirations
GI: Soft, Non Distended and Non Tender
Neurology: Awake, Alert, Oriented and No Motor Deficits
Skin: Warm, Dry and Good Color
Labs/Micro/Reports
Lab Data
07/18/24 03:50
07/18/24 03:50
Microbiology
07/16/24 19:25 Urine Urine Culture - Final
No Significant Growth
07/16/24 08:03 Blood/Venous Blood Culture - Preliminary
No Growth in 48 hours- Final report to follow
07/16/24 05:23 Blood/Venous Blood Culture - Preliminary
No Growth in 48 hours- Final report to follow
07/16/24 00:00 Urine Legionella Urinary Antigen - Final
Negative for Legionella pneumophila Serogroup 1 antigen.
A negative result does not rule out the possiblity of
Legionella infection due to other serogroups or species of
Legionella. Clinical correlation is recommended.
07/16/24 00:00 Urine Streptococcus pneumoniae Antigen (M - Final
Negative for Streptococcus pneumoniae antigen.
A negative result does not exclude infection with
Streptococcus pneumoniae. Clinical correlation is
recommended.
07/16/24 04:11 Nasal Swab Influenza Types A & B (SARAH BETH) - Final
Negative for Influenza A & B, NAAT
Negative results must be combined with clinical observations
and patient history.
Nucleic Acid Amplification test (NAAT)performed on the
[employer] platform.
[2024-07-18 11:14] VITALS: BP 124/77
--- NOTE | 2024-07-18 11:34 | W.PN.CARDCBS ---
Addendum entered and electronically signed by Ranjeet Wren MD 07/18/24 15:09:
I saw and examined the patient.
The Deck Engineer's note was reviewed and I agree with the note.
Comment: Briefly, 68-year-old woman past medical history of stage IV colorectal cancer presenting with dyspnea on exertion. Echocardiogram here showed hyperdynamic LV function and findings suggestive of possible HCM. She has been tachycardic, by
my review of telemetry sinus rhythm with frequent PACs.
Given hyperdynamic LV function and frequent PACs diltiazem was ordered
Symptoms seem to be somewhat better today
Would continue current diltiazem dose and could be potentially uptitrated as an outpatient
With hyperdynamic LV function would hold off on further doses of IV Lasix
Can be discharged with p.o. Lasix 20 mg daily as needed
Stable cardiac status, we will sign off
Outpatient follow-up to be arranged
Original Note:
Today's Communication / Plan
-
cardizem cd 180mg daily
OP follow up with [facility]
will arrange OP cardiac follow up
Impression / Plan
-
PCP: Dr. Tricia Aranda
Primary Computer Designer: ATC
FCCC: Dr. Bartolome Hernandez
Impression:
Admitted with multifactorial MELENDEZ 07/15/24
LVH on echo concerning for possible hyperdynamic function vs HOCM
Acute HFpEF
Coronary calcification on CT chest 07/15/24
no evidence of IA or vasospasm
Possible newly diagnosed ILD
possible drug induced injury from chemotherapy
Stage IV colorectal carcinoma s/p resection, currently on chemotherapy
5-FU, possible coronary spasm
oxaliplatin, possible arrhythmia, spasm, CHF
Erbitux, possible IA or cardiac arrest
Braftovi, possible CHF, QT prolongation
Fibromyalgia
Former smoker
PAT
Raynaud's
ECHO 07/16/24: EF 65-70%, mild LVH, elevated LVOT velocity noted, mild , mod to moderate-severe MR, possible mild SERGEI, possible mild dilation of ascending aorta
Plan:
-she reports breathing is improving although not back to baseline
-braftovi has been stopped after discussion with [facility].
-remains in SR with PACs and occasional brief runs of PAT (she has history of this prior to chemotherapy). continue cardizem cd at higher dose of 180mg daily
-reviewed echo this admission with preserved EF, hyperdynamic vs HOCM. no family history
-There was also concern for mild volume overload and patient was agreeable to a single dose of Lasix 20 mg PO x 1 on 07/16/2024. would hold off on daily diuretic dosing given echo results, however would consider for 20mg po PRN lasix upon DC for
weight gain, worsening SOB.
-Patient should have eventual risk factor modification pending her cancer course. Coronary calcifications seen on CT. LDL 38.
-will arrange OP cardiac follow up, patient would like to follow with Dr. Jamilah Sahni for cardio-oncology moving forward
HPI: Patient is a 68 yo F with PMH of stage 4 colorectal carcinoma s/p resection, fibromyalgia, and former smoking who presents to [facility] with MELENDEZ. Patient was seen at [facility] by ATC for paroxysmal atrial tachycardia 01/2024. Patient reports a normal echo
at that time. Patient was then diagnosed with colorectal cancer a few months ago and over the last month she started chemotherapy for her colon cancer, and feels the dyspnea started around the time of initiation of chemo however worsened over the 4
several days. Denies orthopnea or LE edema. Prior CT scan reportedly showed evidence of fibrosis, again noted on CT completed in ER 07/15. She is also noted to have evidence of coronary artery calcifications by CT imaging. She states she had echo
prior to starting chemotherapy which reportedly looked ok. Concern for cardiac component of MELENDEZ as proBNP was elevated at 4510. She denies history of heart failure. Cardiology consulted for assessment of volume status. Trop 0.013.
Progress Note - Computer Designer
Subjective
Date of Service: July 18, 2024
reports breathing improving. HR lower
Objective
Labs:
07/18/24 03:50
07/18/24 03:50
Labs
Hgb 12.4 g/dL (12.0-16.0) 07/18/24 03:50
Hct 37.9 % (37.0-47.0) 07/18/24 03:50
Plt Count 100 10^3/uL (130-400) L 07/18/24 03:50
Sodium 134 mmol/L (135-145) L 07/18/24 03:50
Potassium 3.5 mmol/L (3.5-5.1) 07/18/24 03:50
BUN 12 mg/dl (7-17) 07/18/24 03:50
Creatinine 0.7 mg/dL (0.6-1.0) 07/18/24 03:50
Glucose 115 mg/dl (70-99) H 07/18/24 03:50
Troponins
07/15/24
13:47
Troponin I 0.013
Vital Signs and I&O:
Vital Signs
Temp Pulse Resp BP Pulse Ox
98.4 F 82 17 124/77 97
07/18/24 11:14 07/18/24 11:14 07/18/24 11:14 07/18/24 11:14 07/18/24 11:14
Vital Signs
Temp Pulse Resp BP Pulse Ox
98.4 F 82 17 124/77 97
07/18/24 11:14 07/18/24 11:14 07/18/24 11:14 07/18/24 11:14 07/18/24 11:14
Intake & Output
07/16/24 07/17/24 07/18/24 07/19/24
07:59 07:59 07:59 07:59
Intake Total 960 / 960 2280 / 2280 990 / 990
Balance 960 / 960 2280 / 2280 990 / 990
Physical Exam
Physical Exam
GEN: No distress, awake, alert, oriented x3
HEENT: supple, anicteric, mmm, eomi
LUNGS: CTA B/L, no wheezes/rales
CV: Reg, S1/S2, no murmur
ABD: soft, BS+, NT/ND
EXT: No cyanosis, clubbing, edema
NEURO: Gross non-focal
SKIN: Warm, pink, dry. No rash. R chest port
--- NOTE | 2024-07-18 12:06 | W.PN.ID1 ---
Date of Service
Date of Service: July 18, 2024
Today's Communication
Observe closely off antibiotics.
Assessment / Plan
Fever
Leukopenia / Neutropenia
Stage IV colorectal CA
- On chemotherapy
Recommendations:
DDx for fevers includes bacterial infection, viral infection, tumor fever or possible medication effect.
Blood cultures no growth thus far.
Legionella and pneumococcal urinary antigens negative.
Procalcitonin negative.
Case discussed with HemeOnc (at [facility]) and Hospitalist. Would hold on the addition of any antibiotics, as fever likely secondary to one of her chemotherapy agents (known reaction and studies).
Patient for dose of G-CSF today.
Follow white count and temperature curve.
����������������������������������������������������������
Chief Complaint
-: Fever
Subjective / Review of Systems
Patient seen and examined. Overall feels well.
Vital Signs / Physical Exam
Vital Signs
Vital Signs
Temp Pulse Resp BP Pulse Ox
98.4 F 82 17 124/77 97
07/18/24 11:14 07/18/24 11:14 07/18/24 11:14 07/18/24 11:14 07/18/24 11:14
Physical Exam
Constitutional: No Acute Distress, Comfortable and Non-toxic
Eyes: Sclera Anicteric
Pulmonary: Non Labored
Gastrointestinal: Non Distended
Extremities: Negative Cyanosis or Erythema
Neurological: Awake and Alert
Psychological: Calm
Objective Data
Lab Data
Lab Results
07/18/24 03:50
07/18/24 03:50
Estimated Creat Clear 78 ml/min 07/18/24 03:50
Total Bilirubin 0.5 mg/dl (0.2-1.3) 07/15/24 13:47
AST 32 U/L (14-36) 07/15/24 13:47
ALT 40 U/L (0-35) H 07/15/24 13:47
Alkaline Phosphatase 121 U/L (38-126) 07/15/24 13:47
Most recent labs reviewed.
Micro Results:
07/16/24 19:25 Urine Culture - Final
Urine No Significant Growth
07/16/24 08:03 Blood Culture - Preliminary
Blood/Venous No Growth in 48 hours- Final report to follow
07/16/24 05:23 Blood Culture - Preliminary
Blood/Venous No Growth in 48 hours- Final report to follow
07/16/24 00:00 Legionella Urinary Antigen - Final
Urine Negative for Legionella pneumophila Serogroup 1 antigen.
A negative result does not rule out the possiblity of
Legionella infection due to other serogroups or species of
Legionella. Clinical correlation is recommended.
Streptococcus pneumoniae Antigen (M - Final
Negative for Streptococcus pneumoniae antigen.
A negative result does not exclude infection with
Streptococcus pneumoniae. Clinical correlation is
recommended.
07/16/24 04:11 Influenza Types A & B (SARAH BETH) - Final
Nasal Swab Negative for Influenza A & B, NAAT
Negative results must be combined with clinical observations
and patient history.
Nucleic Acid Amplification test (NAAT)performed on the
[employer] platform.
Imaging:
07/15/2024 CT chest (PE study): No evidence of pulmonary embolism. There are peripheral increased interstitial markings within both lungs, greater in the lung bases. The morphologic appearance is suggestive of mild interstitial fibrosis. Suggestion
of mild honeycombing involving the inferior aspect of both lower lobes, with small air-filled cystic foci.
Care Review
Plan reviewed with: Physician (Hospitalist; [facility])
--- NOTE | 2024-07-18 12:38 | W.PN.HOSP.TC ---
Today's Communication/Plan
-
Filgrastim
Follow counts tomorrow
Assessment / Plan
Assessment / Plan
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
CT of the chest 07/15/2024-no PE. Findings with the peripheral interstitial fibrosis greater in the posterior lungs UIP pattern. Mild honeycombing within the posterior lower lungs. Coronary artery calcifications. Right adrenal gland adenoma 1.8
cm. Mild fatty liver
EKG-sinus tachycardia with premature atrial complexes
Echo 07/16/2024-normal LV systolic function. EF 65 to 70%. LVH. Mild . Moderate MR. Possible mild dilatation of the ascending aorta 3.9 cm.
3 stools in the past 24 hours. 1 was loose and 2 were formed. No abdominal pain. Shortness of breath better. She does not feel back to baseline but feels better. No sputum production
CVS: S1-S2 normal, sm at apex
Chest: rales at bases
Abdomen: Soft, NT / Bowel sounds present
Extremities: No edema
# Dyspnea on exertion
Not hypoxic and not on oxygen
CAT scan shows interstitial pneumonitis-UIP pattern on CAT scan
Patient also with fevers-Tmax 100.6 last night
Blood cultures neg so far
COVID-negative
Started ceftriaxone and doxycycline-was discontinued yesterday per infectious disease
Lasix given last night-with elevated Pro BNP-echo without any cardiomyopathy, has LVH
# Tachycardia-possibly atrial tachycardia with frequent PACs
Metoprolol was given in the ER with improvement .
Patient was seen by cardiology at [place] for abnormal EKG in the past
Continue Cardizem 180 mg daily
# Hypokalemia-replaced
# Hyponatremia-better
# Leukopenia and thrombocytopenia-likely secondary to chemotherapy
Neutropenia noted
Per discussion with Dr. Hernandez from [facility] this morning ordered 1 dose of Granix. If counts are better tomorrow no more doses required
# Stage IV colon carcinoma
Had a normal colonoscopy in 2021 at [facility]
January [address] [facility] with symptoms of appendicitis, was treated and was advised to get a colonoscopy which she got in March 2024. This showed a right-sided tumor , right hemicolectomy, was done by on April
2024.
During surgery , she was found to have carcinomatosis , 15 lymph nodes were positive and also focal hypermetabolic lesion in the liver on the PET .
The tumor was initially felt to be neuroendocrine tumor but tumor board at [facility] felt that this is 'regular' colon cancer with neuroendocrine features. She follows up with Dr. Hernandez at [facility].
Started on chemotherapy June 09, 2024. Had 3 cycles so far. Last cycle was Sunday.
Patient states she is on 5-FU, oxaliplatin, Erbitux . Also on Braftovi.
I called and spoke to at [facility]
Patient had an echo preoperatively at [facility] with an EF of 55 to 60%. Per oncologist
Braftovi has GI side effects, cardiomyopathy, rash for which she is prophylactically on minocycline(patient did not have rash). It can also cause fevers 1 to 2 weeks posttreatment. But we need to rule out infection first.
Patient had a PET scan 2 months ago at that time lungs were fine per Dr. Hernandez.
Per Dr. Hernandez patient hold Braftovi. Okay to hold minocycline while the patient is on doxycycline
Lung injury is not one of the common side effects of any of the medicines that she is on at present per discussion with the oncologist.
He did not think at this point patient needed an oncology evaluation here at [facility] but recommended pulmonary evaluation.
# Hypothyroidism-continue Levothyroxine.
# Anxiety-continue as needed alprazolam
# Nausea-patient is on as needed prochlorperazine, Zofran, olanzapine as outpatient
# Right adrenal gland adenoma 1.8 cm.OP Follow up
# Chemotherapy-induced neuropathy-continue gabapentin
# Coronary artery calcification-needs further follow-up with cardiology as outpatient
# Migraines
# Chronic back pain and neck Pain/Fibromyalgia
# [id number] 10 years ago
# DVT prophylaxis-Lovenox
# Full code
I had asked patient in the beginning of the hospital stay if she would like to be transferred to [facility] she declined
Discussed with patient's brother at bedside with patient's permission
Discussed with infectious disease
D/W at [facility] on 07/16/2024 and again today
Today Dr. Mckinnon and I were on a speaker phone with him. He recommended to hold off on any further antibiotics as this does not feel infectious. Patient's medicines can cause fever. Because of neutropenia advised to give 1 dose of filgrastim.
Follow counts tomorrow if counts are better tomorrow no more doses required.
Dr. Hernandez also did not think that oncology needs to see pt while she is hospitalized here.
D/W RN
PET scan at [facility]-
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
Lung 7 mm right perifissural nodule could represent an intrapulmonary lymph node. 6 mm right perifissural nodule could represent an intrapulmonary lymph node. No hypermetabolic pulmonary nodules.
Subsegmental atelectatic changes at the right lower lobe paravertebral region. Atelectatic change in the bilateral lung bases. Limited assessment of the lungs due to low dose, thick slice, low lung volume technique during shallow breathing. No
pleural effusion.
Atherosclerotic calcification of the aortic arch and coronaries.
Liver-focal hypermetabolic lesion in the the region of hypermetabolism measures 1.6 into 1.2 cm. Postcholecystectomy. No suspicious lesions in spleen and pancreas
Lymphadenopathy in the right lower quadrant and right iliac lymph nodes. Mesenteric lymph node at the right lower quadrant adjacent to the cecum.
Large hypermetabolic mass at the cecal region consistent biopsy-proven poorly differentiated endocrine tumor
Part of this note was created using voice recognition system. Occasional wrong word or��sound alike� substitutions may have inadvertently occurred due to the inherent limitations of voice recognition software. If noted kindly bring it to my
attention for correction.
Anticipated Discharge: Within 24 hours
Subjective/Interval History
-
Date of Service: July 18, 2024
Objective Data
-
Labs:
Laboratory Results
07/18/24
03:50
WBC 2.3 L*
Hgb 12.4
Hct 37.9
Plt Count 100 L
Sodium 134 L
Potassium 3.5
Chloride 104
Carbon Dioxide 23
BUN 12
Creatinine 0.7
Glucose 115 H
Calcium 8.7
Vital Signs:
Vital Signs
Temp Pulse Resp BP Pulse Ox
98.4 F 82 17 124/77 97
07/18/24 11:14 07/18/24 11:14 07/18/24 11:14 07/18/24 11:14 07/18/24 11:14
I&O
07/17/24 07/18/24 07/19/24
06:59 06:59 06:59
Intake Total 3240 / 3240 990 / 990
Balance 3240 / 3240 990 / 990
[2024-07-18] MEDS: GRANIX 300 MCG SC (13:10)
[2024-07-18 15:33] VITALS: BP 118/72
[2024-07-18] MEDS: LOVENOX 40 MG SC (17:12)
[2024-07-18 19:00] VITALS: BP 133/84
[2024-07-18 23:00] VITALS: BP 109/70
[2024-07-18] MEDS: XANAX 0.25 MG PO (23:08)
[2024-07-19 03:00] VITALS: BP 103/72
[2024-07-19] MEDS: SYNTHROID 50 MCG PO (05:02)
[2024-07-19 05:51] VITALS: BMI 25.7
[2024-07-19 08:05] VITALS: BP 110/71
[2024-07-19 09:00] LABS: Blood Urea Nitrogen 12 mg/dl (7-17); Calcium 8.9 mg/dl (8.4-10.2); Carbon Dioxide 29 mmol/L (22-30); Chloride 103 mmol/L (98-107); Estimated Creatinine Clearance 91 ml/min; Glucose 106 mg/dl (70-99); Magnesium 1.9 mg/dl (1.6-2.3); Potassium 3.4 mmol/L (3.5-5.1); Sodium 136 mmol/L (135-145); eGFR > 60.00
[2024-07-19] MEDS: MAGNESIUM OXIDE 500 MG PO (09:03)
[2024-07-19] MEDS: NEURONTIN 300 MG PO ×2 (09:03→19:06)
[2024-07-19] MEDS: SINGULAIR 10 MG PO (09:03)
[2024-07-19] MEDS: CARDIZEM CD 180 MG PO (09:03)
[2024-07-19 09:11] LABS: Hematocrit 37.7 % (37.0-47.0); Hemoglobin 12.2 g/dL (12.0-16.0); Mean Corp Hgb Conc. 32.4 g/dL (33.0-37.0); Mean Corpuscular Hgb 28.3 pg (27.0-31.0); Mean Corpuscular Volume 87.5 fL (81.0-99.0); Mean Platelet Volume 11.4 fL (7.4-10.4); Platelet Count 103 10^3/uL (130-400); Red Blood Cell Count 4.31 10^6/uL (4.20-5.40); Red Cell Dist. Width 17.3 % (11.5-14.5); White Blood Cell Count 3.2 10^3/uL (4.8-10.8)
[2024-07-19 10:01] LABS: Band Neutrophils 5 % (0-3); Segmented Neutrophils 14 % (42-75)
[2024-07-19 10:02] LABS: Eosinophils 6 % (0-6); Lymphocytes 49 % (20-51); Monocytes 25 % (2-9)
[2024-07-19 10:03] LABS: Platelets Checked YES
[2024-07-19 10:09] LABS: Normal RBC Morphology No
[2024-07-19 10:10] LABS: Macrocytosis Slight; Ovalocytes FEW; Target Cells FEW
[2024-07-19 10:12] LABS: Total Cells Counted 100
[2024-07-19 10:13] LABS: Absolute Neutrophils -Man Diff 0.6 10^3/uL (1.4-6.5)
[2024-07-19] MEDS: MINOCIN PO ×2 (10:22→14:26)
[2024-07-19] MEDS: KCL 40 MEQ PO (10:22)
[2024-07-19 11:40] VITALS: BP 105/71
--- NOTE | 2024-07-19 11:57 | W.PN.HOSP.TC ---
Today's Communication/Plan
-
Granix
CBC in am
Correct K
Assessment / Plan
Assessment / Plan
68-year-old pleasant female with shortness of breath for the past 4 days [employer]
CT of the chest 07/15/2024-no PE. Findings with the peripheral interstitial fibrosis greater in the posterior lungs UIP pattern. Mild honeycombing within the posterior lower lungs. Coronary artery calcifications. Right adrenal gland adenoma 1.8
cm. Mild fatty liver
EKG-sinus tachycardia with premature atrial complexes
Echo 07/16/2024-normal LV systolic function. EF 65 to 70%. LVH. Mild . Moderate MR. Possible mild dilatation of the ascending aorta 3.9 cm.
Ambulated in the [place] . No C/O shortness of breath. No abdominal pain or diarrhea
CVS: S1-S2 normal, sm at apex
Chest: rales at bases
Abdomen: Soft, NT / Bowel sounds present
Extremities: No edema
# Dyspnea on exertion
Not hypoxic and not on oxygen
CAT scan shows interstitial pneumonitis-UIP pattern on CAT scan
No more fevers in 24 hours.
Blood cultures neg so far
COVID-negative
Started ceftriaxone and doxycycline-was discontinued on 07/17/2024 per infectious disease
Got a dose of lasix also
# Tachycardia-possibly atrial tachycardia with frequent PACs
Metoprolol was given in the ER with improvement .
Patient was seen by cardiology at [place] for abnormal EKG in the past
Continue Cardizem 180 mg daily
# Hypokalemia-replace
# Hyponatremia-better
# Leukopenia and thrombocytopenia-likely secondary to chemotherapy
Neutropenia noted
Per discussion with Dr. Hernandez from [facility] again today on 07/19/2024
Granix ordered 480 mcg today
# Stage IV colon carcinoma
Had a normal colonoscopy in 2021 at [facility]
January 2024 she went to [facility] with symptoms of appendicitis, was treated and was advised to get a colonoscopy which she got in March 2024. This showed a right-sided tumor , right hemicolectomy, was done by on April
2024.
During surgery , she was found to have carcinomatosis , 15 lymph nodes were positive and also focal hypermetabolic lesion in the liver on the PET .
The tumor was initially felt to be neuroendocrine tumor but tumor board at [facility] felt that this is 'regular' colon cancer with neuroendocrine features. She follows up with Dr. Hernandez at [facility].
Started on chemotherapy June 09, 2024. Had 3 cycles so far. Last cycle was Sunday.
Patient states she is on 5-FU, oxaliplatin, Erbitux . Also on Braftovi.
Patient had an echo preoperatively at [facility] with an EF of 55 to 60%.
Per oncologist Braftovi has GI side effects, cardiomyopathy, it can also cause fevers 1 to 2 weeks posttreatment.
Erbitux can cause rash for which she is prophylactically on minocycline.
Patient had a PET scan 2 months ago at that time lungs were fine per Dr. Hernandez. ( But as below it was not thin slices)
Per Dr. Hernandez patient hold Braftovi.
Lung injury is not one of the common side effects of any of the medicines that she is on at present per discussion with the oncologist.
He did not think at this point patient needed an oncology evaluation here at [facility] but recommended pulmonary evaluation.
# Hypothyroidism-continue Levothyroxine.
# Anxiety-continue as needed alprazolam
# Nausea-patient is on as needed prochlorperazine, Zofran, olanzapine as outpatient
# Right adrenal gland adenoma 1.8 cm.OP Follow up
# Chemotherapy-induced neuropathy-continue gabapentin
# Coronary artery calcification-needs further follow-up with cardiology as outpatient
# Migraines
# Chronic back pain and neck Pain/Fibromyalgia
# [id number] 10 years ago
# DVT prophylaxis-Lovenox
# Full code
D/W at [facility] on 07/16/2024 , 07/18/24 and 07/19/24
D/W RN at bed side.
PET scan at [facility]-
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
Lung 7 mm right perifissural nodule could represent an intrapulmonary lymph node. 6 mm right perifissural nodule could represent an intrapulmonary lymph node. No hypermetabolic pulmonary nodules.
Subsegmental atelectatic changes at the right lower lobe paravertebral region. Atelectatic change in the bilateral lung bases. Limited assessment of the lungs due to low dose, thick slice, low lung volume technique during shallow breathing. No
pleural effusion.
Atherosclerotic calcification of the aortic arch and coronaries.
Liver-focal hypermetabolic lesion in the the region of hypermetabolism measures 1.6 into 1.2 cm. Postcholecystectomy. No suspicious lesions in spleen and pancreas
Lymphadenopathy in the right lower quadrant and right iliac lymph nodes. Mesenteric lymph node at the right lower quadrant adjacent to the cecum.
Large hypermetabolic mass at the cecal region consistent biopsy-proven poorly differentiated endocrine tumor
Part of this note was created using voice recognition system. Occasional wrong word or��sound alike� substitutions may have inadvertently occurred due to the inherent limitations of voice recognition software. If noted kindly bring it to my
attention for correction.
Anticipated Discharge: Within 24 hours
Subjective/Interval History
-
Date of Service: July 19, 2024
Objective Data
-
Labs:
Laboratory Results
07/19/24
08:29
WBC 3.2 L
Hgb 12.2
Hct 37.7
Plt Count 103 L
Sodium 136
Potassium 3.4 L
Chloride 103
Carbon Dioxide 29
BUN 12
Creatinine 0.6
Glucose 106 H
Calcium 8.9
Vital Signs:
Vital Signs
Temp Pulse Resp BP Pulse Ox
98.4 F 85 20 105/71 98
07/19/24 11:40 07/19/24 11:40 07/19/24 11:40 07/19/24 11:40 07/19/24 11:40
I&O
07/18/24 07/19/24 07/20/24
06:59 06:59 06:59
Intake Total 990 / 990 2400 / 2400
Balance 990 / 990 2400 / 2400
[2024-07-19] MEDS: GRANIX 480 MCG SC (13:38)
[2024-07-19 15:40] VITALS: BP 97/70
[2024-07-19] MEDS: LOVENOX 40 MG SC (16:46)
[2024-07-19] MEDS: MINOCIN 100 MG PO (19:07)
[2024-07-19 19:52] VITALS: BP 119/74
[2024-07-19] MEDS: TYLENOL 650 MG PO (20:32)
[2024-07-19] MEDS: XANAX 0.25 MG PO (23:25)
[2024-07-19 23:40] VITALS: BP 102/69
[2024-07-20 03:25] VITALS: BP 108/65
[2024-07-20] MEDS: SYNTHROID 50 MCG PO (05:04)
[2024-07-20 06:27] LABS: Hematocrit 34.2 % (37.0-47.0); Hemoglobin 11.2 g/dL (12.0-16.0); Mean Corp Hgb Conc. 32.7 g/dL (33.0-37.0); Mean Corpuscular Hgb 28.5 pg (27.0-31.0); Mean Platelet Volume 11.6 fL (7.4-10.4); Platelet Count 112 10^3/uL (130-400); Red Blood Cell Count 3.93 10^6/uL (4.20-5.40); Red Cell Dist. Width 17.2 % (11.5-14.5)
[2024-07-20 06:48] LABS: Blood Urea Nitrogen 15 mg/dl (7-17); Carbon Dioxide 28 mmol/L (22-30); Chloride 106 mmol/L (98-107); Estimated Creatinine Clearance 91 ml/min; Glucose 94 mg/dl (70-99); Potassium 3.7 mmol/L (3.5-5.1); Sodium 136 mmol/L (135-145); eGFR > 60.00
[2024-07-20 08:05] VITALS: BP 118/73
[2024-07-20 08:09] VITALS: BMI 26.2
[2024-07-20 08:37] LABS: Absolute Neutrophils -Man Diff 0.4 10^3/uL (1.4-6.5); Band Neutrophils 1 % (0-3); Segmented Neutrophils 9 % (42-75)
[2024-07-20 08:38] LABS: Atypical Lymphocytes 6 %; Eosinophils 2 % (0-6); Lymphocytes 58 % (20-51); Metamyelocytes 1 % (-); Monocytes 20 % (2-9); Myelocytes 2 % (-)
[2024-07-20 08:40] LABS: Anisocytosis Slight; Normal RBC Morphology No; Nucleated Red Blood Cells 2 (-); Platelets Checked YES
[2024-07-20 08:41] LABS: Macrocytosis Slight
[2024-07-20 08:42] LABS: Ovalocytes FEW; Schistocytes FEW; Tear Drop Red Blood Cells FEW
[2024-07-20 08:43] LABS: Total Cells Counted 100
[2024-07-20] MEDS: MINOCIN 100 MG PO (09:03)
[2024-07-20] MEDS: SINGULAIR 10 MG PO (09:03)
[2024-07-20] MEDS: MAGNESIUM OXIDE 500 MG PO (09:03)
[2024-07-20] MEDS: NEURONTIN 300 MG PO (09:03)
[2024-07-20] MEDS: CARDIZEM CD 180 MG PO (09:15)
[2024-07-20 11:37] VITALS: BP 115/70
--- NOTE | 2024-07-20 12:47 | CM ---
Addendum entered by Debora Wolff 07/20/24 14:08:
Plan: discharge to home today
Original Note:
Met with patient at bedside; initial assessment completed
Pharmacy verified: [facility] [address] [facility]
Lives alone; multilevel home; 7 steps to enter; 13 steps between floors; full bath and bedroom on 1st floor; her bath has tub w/shower
PLOF; reported she is independent with ambulation, stairs, and ADLs; Drives
DME: none
No SNF or Home Health utilization history
Brother will transport home
Plan: Discharge to home when medically stable; no needs anticipated
[2024-07-20] MEDS: GRANIX 480 MCG SC (13:22)
--- NOTE | 2024-07-20 13:37 | W.PN.HOSP.TC ---
Today's Communication/Plan
-
Discharge
Assessment / Plan
Assessment / Plan
68-year-old pleasant female with shortness of breath for the past 4 days [facility]
CT of the chest 07/15/2024-no PE. Findings with the peripheral interstitial fibrosis greater in the posterior lungs UIP pattern. Mild honeycombing within the posterior lower lungs. Coronary artery calcifications. Right adrenal gland adenoma 1.8
cm. Mild fatty liver
EKG-sinus tachycardia with premature atrial complexes
Echo 07/16/2024-normal LV systolic function. EF 65 to 70%. LVH. Mild . Moderate MR. Possible mild dilatation of the ascending aorta 3.9 cm.
CVS: S1-S2 normal, sm at apex
Chest: rales at bases
Abdomen: Soft, NT / Bowel sounds present
Extremities: No edema
# Dyspnea on exertion
Not hypoxic and not on oxygen
CAT scan shows interstitial pneumonitis-UIP pattern on CAT scan
No more fevers in over 48 hours.
Blood cultures neg so far
COVID-negative
Started ceftriaxone and doxycycline-was discontinued on 07/17/2024 per infectious disease
Got a dose of Lasix also this admission
# Tachycardia-possibly atrial tachycardia with frequent PACs
Metoprolol was given in the ER with improvement .
Patient was seen by cardiology at [place] for abnormal EKG in the past
Continue Cardizem 180 mg daily
PRN lasix for weight gain per Cards last notes.
# Hypokalemia-replaced
# Hyponatremia-better
# Leukopenia and thrombocytopenia-likely secondary to chemotherapy
Neutropenia noted
Per discussion with Dr. Hernandez from [facility] [place] again today on 07/20/2024
Granix ordered 480 mcg today
Since patient does not have fever he is okay with discharging the patient after 1 more dose of Granix today.
I have given her a prescription for lab work with results to go to Dr. Hernandez.
# Stage IV colon carcinoma
Had a normal colonoscopy in 2021 at [facility]
January 2024 she went to [facility] with symptoms of appendicitis, was treated and was advised to get a colonoscopy which she got in March 2024. This showed a right-sided tumor , right hemicolectomy, was done by on April
2024.
During surgery , she was found to have carcinomatosis , 15 lymph nodes were positive and also focal hypermetabolic lesion in the liver on the PET .
The tumor was initially felt to be neuroendocrine tumor but tumor board at [facility] felt that this is 'regular' colon cancer with neuroendocrine features. She follows up with Dr. Hernandez at [facility].
Started on chemotherapy June 09, 2024. Had 3 cycles so far. Last cycle was Sunday.
Patient states she is on 5-FU, oxaliplatin, Erbitux . Also on Braftovi.
Patient had an echo preoperatively at [facility] with an EF of 55 to 60%.
Per oncologist Braftovi has GI side effects, cardiomyopathy, it can also cause fevers 1 to 2 weeks posttreatment.
Erbitux can cause rash for which she is prophylactically on minocycline.
Patient had a PET scan 2 months ago at that time lungs were fine per Dr. Hernandez. ( But as below it was not thin slices)
Per Dr. Hernandez patient hold Braftovi.
Lung injury is not one of the common side effects of any of the medicines that she is on at present per discussion with the oncologist.
He did not think at this point patient needed an oncology evaluation here at [facility] but recommended pulmonary evaluation.
# Hypothyroidism-continue Levothyroxine.
# Anxiety-continue as needed alprazolam
# Nausea-patient is on as needed prochlorperazine, Zofran, olanzapine as outpatient
# Right adrenal gland adenoma 1.8 cm.OP Follow up
# Chemotherapy-induced neuropathy-continue gabapentin
# Coronary artery calcification-needs further follow-up with cardiology as outpatient
# Migraines
# Chronic back pain and neck Pain/Fibromyalgia
# [id number] 10 years ago
# DVT prophylaxis-Lovenox
# Full code
D/W at [facility] on 07/16/2024 , 07/18/24 ,07/19/24 and 07/20/24
D/W RN at bed side.
PET scan at [facility]-
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
Lung 7 mm right perifissural nodule could represent an intrapulmonary lymph node. 6 mm right perifissural nodule could represent an intrapulmonary lymph node. No hypermetabolic pulmonary nodules.
Subsegmental atelectatic changes at the right lower lobe paravertebral region. Atelectatic change in the bilateral lung bases. Limited assessment of the lungs due to low dose, thick slice, low lung volume technique during shallow breathing. No
pleural effusion.
Atherosclerotic calcification of the aortic arch and coronaries.
Liver-focal hypermetabolic lesion in the the region of hypermetabolism measures 1.6 into 1.2 cm. Postcholecystectomy. No suspicious lesions in spleen and pancreas
Lymphadenopathy in the right lower quadrant and right iliac lymph nodes. Mesenteric lymph node at the right lower quadrant adjacent to the cecum.
Large hypermetabolic mass at the cecal region consistent biopsy-proven poorly differentiated endocrine tumor
Part of this note was created using voice recognition system. Occasional wrong word or��sound alike� substitutions may have inadvertently occurred due to the inherent limitations of voice recognition software. If noted kindly bring it to my
attention for correction.
Patient had questions regarding Cardizem, fluid intake, white count all were answered the best of my ability.
Offered to talk to family. Patient declined saying that her daughter is aware of what is going on.
Total discharge coordination time more than 35 minutes
Anticipated Discharge: Today
Subjective/Interval History
-
Date of Service: July 20, 2024
Objective Data
-
Labs:
Laboratory Results
07/20/24
06:00
WBC 4.0 L
Hgb 11.2 L
Hct 34.2 L
Plt Count 112 L
Sodium 136
Potassium 3.7
Chloride 106
Carbon Dioxide 28
BUN 15
Creatinine 0.6
Glucose 94
Calcium 9.0
Vital Signs:
Vital Signs
Temp Pulse Resp BP Pulse Ox
98.1 F 92 22 115/70 96
07/20/24 11:37 07/20/24 11:37 07/20/24 11:37 07/20/24 11:37 07/20/24 11:37
I&O
07/19/24 07/20/24 07/21/24
06:59 06:59 06:59
Intake Total 2400 / 2400 480 / 480
Balance 2400 / 2400 480 / 480
--- NOTE | 2024-07-20 13:47 | W.DS.TRANS ---
Addendum entered and electronically signed by Pasquale Guzman MD 07/20/24 15:18:
Dictation- [id number]
Original Note:
DC Summary - [facility]
-
Discharge Instructions:
Sleep Apnea Risk Intermediate
Discharge Diagnosis/Procedures Dyspnea on exertion (shortness of breath)
Tachycardia (rapid heart rate)
Hypokalemia (low potassium)
Hyponatremia (low sodium)
Leukopenia and thrombocytopenia(low blood counts
)
Stage IV colon cancer
Hypothyroidism
Right adrenal gland adenoma
Neuropathy
Coronary artery calcification
Fibromyalgia
Fatty infiltration of liver per CT
Diet As tolerated
Additional Diets 60 ounce fluid restriction
Activity As tolerated,No strenuous activity
Driving Restrictions As prior to admission
Specialty Instructions Weigh Daily
Instructions: *PCP/Other [place] Heart Failure Instructions
Stand-Alone Forms:
Changes to Home Medications: Yes
Discharge Medications:
DC Medications w/original date entered in [facility]
alprazolam 0.25 mg tablet 0.25 mg PO BIDPRN PRN Anxiety 07/15/24
clindamycin phosphate 1 % topical gel 1 applic topical BIDPRN PRN Rash 07/15/24
dexamethasone 4 mg tablet 8 mg PO BIDPRN PRN Prior to Chemo 07/15/24
gabapentin 300 mg capsule 300 mg PO BID Pain 07/15/24
levothyroxine 50 mcg tablet 50 mcg PO DAILY Thyroid 07/15/24
lidocaine HCl 2 % mucosal solution 15 ml PO Q3HPRN PRN mouth sores 07/15/24
minocycline 100 mg capsule 100 mg PO BID Infection 07/15/24
montelukast 10 mg tablet 10 mg PO DAILY Lung/Breathing Issues 07/15/24
olanzapine 5 mg tablet 5 mg PO HSPRN PRN Nausea 07/15/24
ondansetron HCl 8 mg tablet 8 mg PO Q8HPRN PRN Nausea 07/15/24
prochlorperazine maleate 10 mg tablet 10 mg PO Q6HPRN PRN Nausea 07/15/24
diltiazem HCl 180 mg capsule,extended release 24 hr 180 mg PO DAILY Arrhythmia #30 caps 07/20/24
furosemide 20 mg tablet (Lasix) 20 mg PO Q OTHER DAY PRN weight gain #30 tabs 07/20/24
potassium chloride 10 mEq tablet,extended release 10 meq PO Q OTHER DAY PRN when you take lasix #30 tabs 07/20/24
Home Medication Changes
Braftovi stopped
New
Potassium and Lasix
Pending Results: No
== END 2024-07-20 15:14 | disposition home or self-care (01) | DRG 204 ==
LOC: 3 WEST ACU 18:01
PROVIDERS: Emergency Medicine; Nurse Practitioner Family; Physician Assistant Medical; ADMITTING PHYSICIAN Hospitalist; ATTENDING PHYSICIAN Hospitalist; CONSULT PHYSICIAN Internal Medicine Cardiovascular Disease; EMERGENCY PHYSICIAN Student in an Organized Health Care Education/Training Program; FAMILY PHYSICIAN Internal Medicine; OTHER PHYSICIAN Internal Medicine; OTHER PHYSICIAN Internal Medicine Infectious Disease
DX: R06.00 Dyspnea, unspecified (principal); I50.33 Acute on chronic diastolic (congestive) heart failure; C19 Malignant neoplasm of rectosigmoid junction; E87.1 Hypo-osmolality and hyponatremia; I47.19 Other supraventricular tachycardia; J84.9 Interstitial pulmonary disease, unspecified; J98.11 Atelectasis; E03.9 Hypothyroidism, unspecified; Z87.891 Personal history of nicotine dependence; E87.6 Hypokalemia; D69.6 Thrombocytopenia, unspecified; D70.9 Neutropenia, unspecified; G62.0 Drug-induced polyneuropathy; Z11.52 Encounter for screening for COVID-19; Z60.2 Problems related to living alone
CPT/HCPCS: 94727; 94729; 71046; 71275; 80048; 80053; 80061; 81003; 81015; 83735; 83880; 84145; 84443; 84484; 85025; 85027; 87040; 87086; 87449; 87502; 87811; 87899; 93005; 93306; 94060; 99285; J1447; Q9967

== ENCOUNTER 2024-11-02 19:29 | Inpatient (IN) | payer MEDICARE, OTHER, SELFPAY ==
[2024-11-02 11:39] VITALS: BP 107/79
--- NOTE | 2024-11-02 11:44 | ED.GENMED ---
History of Present Illness
<Effie Montilla PA-C - Last Filed: 11/02/24 21:05>
General
Chief Complaint: Chest Pain
Source: patient and records
Exam Limitations: none
Time Seen by Provider: 11/02/24 11:42
History of Present Illness
History of Present Illness:
69yoF with a history of colon cancer on chemotherapy (treatments every other week, follows with Ricardo Tabares), CHF, atrial tachycardia, and hypothyroidism presenting with her daughter for evaluation of shortness of breath. Patient has been
experiencing exertional dyspnea since being started on chemotherapy. Her shortness of breath started to worsen yesterday. She typically has shortness of breath going up the steps but had dyspnea going down the steps this morning. She now is only
able to ambulate about 20 feet before having symptoms. Her Apple Watch indicated that her heart rate was between 160-170 between 8am and 11am this morning. She denies any palpitations, chest pain, shortness of breath. She is currently on Cardizem
and did take her dose this morning. She follows with Dr. Sahni and her Lasix dose was increased from 20mg daily to 40mg daily yesterday for elevated BNP on outpatient labs. She weighs herself regularly and lost 4 pounds last night. No weight
gain or leg swelling.
Phy Exam
<Effie Montilla PA-C - Last Filed: 11/02/24 21:05>
General Physical Exam
General Presentation: well appearing and no apparent distress
General Skin: warm and dry
General Habitus: normal
General Mental: alert
ENT Exam
ENT Exam: normocephalic
Cardiovascular Exam
Cardiovascular Exam: regular rate/rhythm and no edema
Pulmonary Exam
Pulmonary Exam: lungs clear, no respiratory distress, no rales, no crackles, no rhonchi and no wheezing
Neurological Exam
Neurological Exam: alert
[place] Coma Scale
Eye Opening: Spontaneous
Verbal Response: Oriented
Motor Response: Obeys Commands
GCS Total Score: 15
Skin Exam
Skin Exam: normal color and warm/dry
Psychiatric Exam
Psychiatric Exam: normal mood/affect
<Jacky Lin PA-C - Last Filed: 11/02/24 18:58>
[place] Coma Scale
GCS Total Score: 15
Scores
<Jacky Lin PA-C - Last Filed: 11/02/24 18:58>
Heart Score for Chest Pain Patients
STEMI patient?: Not applicable
Course
<Effie Montilla PA-C - Last Filed: 11/02/24 21:05>
Orders/Labs/Results
Orders:
Orders
11/02/24 11:34
Electrocardiogram (*1) Urgent
Reason for Study: Chest Pain
EKG- Treatment ONCE
11/02/24 12:04
Cardiac Monitoring- Treatment ONCE
11/02/24 13:05
Complete Blood Count/With Diff Urgent
Comprehensive Metabolic Panel Urgent
D-Dimer Urgent
Magnesium Urgent
NT-proBNP Urgent
TSH Reflex To Free T4 Urgent
Troponin I Urgent
11/02/24 13:30
Heparin Pf [Heparin Lock Flush] 500 unit IV PER PROTOCOL
11/02/24 14:22
CT Chest PE Study Urgent
Comment:
Reason For Exam: SOB, elevated D-dimer
11/02/24 15:25
Famotidine [Pepcid] 20 mg PO NOW STA
11/02/24 18:37
Admit/Transfer Patient As Directed
Co-Sign Provider:
Level of Care: Inpatient admission
Assign to:: IVU
Physician / Group: Dr. Avtar Lopez/Hospitalists
Diagnosis: Significant SOB, Left Arm Pain, Concern for ACS
Reason for Hospitalization: Significant SOB, Left Arm Pain, Concern for ACS
Expected length of stay greater than two midnights?: Yes
ELOS- Estimated Length of Stay in days: 3
I certify the patient meets the requirements for IP care: Yes
11/02/24 18:39
Code Status As Directed
Resuscitation Status: Full Code
11/02/24 18:46
Aspirin 325 mg PO NOW STA
11/02/24 18:52
CARDIOLOGY CONSULT Routine
Consulting Provider: Mat Jama
Was physician already notified: Yes
Reason for consult: Significantly worsening SOB. LT arm pain. Severe plaque in LAD on CT
11/02/24 18:53
Echo 2D MMode Color/Doppler Routine
Reason for Study: Significantly worsening SOB. LT arm pain. Signif. LAD plaque on CT Chest
11/02/24 18:59
US Periph Venous LOWER Ext Shaquille Routine
Comment:
Reason For Exam: Elevated D-Dimer. DVTs?
11/02/24 19:00
Atorvastatin [Lipitor] 40 mg PO QPM
11/02/24 19:07
Heparin 4,000 units IV NOW STA
Heparin Protocol- PTT Orders As Directed
PTT per Heparin protocol: -Obtain CBC and baseline PTT - if not already collected.
-Obtain PTT 6 hours from start of infusion. Then, every 6 hours until 2 consecutive
PTT's are therapeutic. Then, PTT Daily.
-With each rate change, obtain PTT every 6 hours until 2 consecutive PTT's are
therapeutic. Then, PTT Daily.
Notify MD As Directed
Notify physician if: PTT is greater than or equal to 200.
11/02/24 19:15
Heparin 28990 Units/250 ml 25,000 units in 250 ml IV PER PROTOCOL
Weight to be used for heparin protocol in kilograms (kg):: 70.1
Protocol:: Cardiac Tx/Acute Coronary
PTT Goal Range to be used:: PTT 73 to 111 seconds
Order type:: Initial
INITIAL Infusion Dose (UNITS/KG/hr) & then follow protocol:: 15 units/kg/hr
Infusion Dose in UNITS/hr & then follow protocol (UNITS/hr):: 1,050
INFUSION RATE in mL/hr & then follow protocol (mL/hr):: 10.5
PTT less than or equal to 64 seconds:: Increase rate by 200 units/hr (+ 2 mL/hr)
PTT 64.1 to 72.9 seconds:: Increase rate by 100 units/hr (+ 1 mL/hr)
PTT 73 to 111 seconds:: Target Range. No change in rate.
PTT 111.1 to 130.9 seconds:: Decrease rate by 100 units/hr (- 1 mL/hr)
PTT 131 to 199.9 seconds:: HOLD for 1 hr. Then decrease rate by 200 units/hr (- 2 mL/hr)
PTT greater than or equal to 200 seconds:: HOLD for 2 hrs & Notify Provider. Then decrease by 200 units/hr (-
2 mL/hr)
Lab follow-up:: Each change, PTT q6h until 2 consecutive are therapeutic. Then PTT
daily.
11/02/24 20:00
Electrocardiogram (*1) Routine
Reason for Study: CAD
Complete Blood Count/No Diff Urgent
Comment: Obtain baseline before beginning heparin infusion if not already collected
PTT Urgent
Comment: Obtain baseline before beginning heparin infusion if not already collected
Troponin I Q6H
11/03/24 01:15
Troponin I Q6H
11/03/24 07:15
Troponin I Q6H
11/03/24 13:15
Troponin I Q6H
11/03/24 19:15
Troponin I Q6H
Abnormal Lab Results
11/02/24
13:05
WBC 11.2 H 10^3/uL
(4.8-10.8)
MCHC 32.8 L g/dL
(33.0-37.0)
RDW 15.9 H %
(11.5-14.5)
Abs Immat Gran (auto) 0.1 H 10^3/uL
(0-0.05)
Absolute Neuts (auto) 8.7 H 10^3/uL
(1.4-6.5)
Absolute Lymphs (auto) 1.1 L 10^3/uL
(1.2-3.4)
Absolute Monos (auto) 1.1 H 10^3/uL
(0.1-0.6)
Immature Gran % 0.6 H %
(0-0.5)
Neutrophils % 77.3 H %
(42.2-75.2)
Lymphocytes % 9.4 L %
(20.5-51.1)
Monocytes % 10.1 H %
(1.7-9.3)
D-Dimer 0.96 H ug/mlFEU
(0.00-0.50)
Sodium 134 L mmol/L
(135-145)
Creatinine 0.5 L mg/dL
(0.6-1.0)
Glucose 121 H mg/dl
(70-99)
AST 39 H U/L
(14-36)
Troponin I 0.073 H* ng/ml
11/02/24 13:05
11/02/24 13:05
Vital Signs
Initial and Last Documented VS:
Initial Vital Signs
Temp Pulse Resp BP Pulse Ox
98.2 F 98 16 107/79 98
11/02/24 11:39 11/02/24 11:39 11/02/24 11:39 11/02/24 11:39 11/02/24 11:39
Last Documented Vital Signs
Temp Pulse Resp BP Pulse Ox
97.3 F 95 13 108/74 96
11/02/24 19:10 11/02/24 20:45 11/02/24 20:45 11/02/24 19:10 11/02/24 20:45
<Jacky Lin PA-C - Last Filed: 11/02/24 18:58>
Orders/Labs/Results
Orders:
Orders
11/02/24 11:34
Electrocardiogram (*1) Urgent
Reason for Study: Chest Pain
EKG- Treatment ONCE
11/02/24 12:04
Cardiac Monitoring- Treatment ONCE
11/02/24 13:05
Complete Blood Count/With Diff Urgent
Comprehensive Metabolic Panel Urgent
D-Dimer Urgent
Magnesium Urgent
NT-proBNP Urgent
TSH Reflex To Free T4 Urgent
Troponin I Urgent
11/02/24 13:30
Heparin Pf [Heparin Lock Flush] 500 unit IV PER PROTOCOL
11/02/24 14:22
CT Chest PE Study Urgent
Comment:
Reason For Exam: SOB, elevated D-dimer
11/02/24 15:25
Famotidine [Pepcid] 20 mg PO NOW STA
11/02/24 18:37
Admit/Transfer Patient As Directed
Co-Sign Provider:
Level of Care: Inpatient admission
Assign to:: IVU
Physician / Group: Dr. Avtar Lopez/Hospitalists
Diagnosis: Significant SOB, Left Arm Pain, Concern for ACS
Reason for Hospitalization: Significant SOB, Left Arm Pain, Concern for ACS
Expected length of stay greater than two midnights?: Yes
ELOS- Estimated Length of Stay in days: 3
I certify the patient meets the requirements for IP care: Yes
11/02/24 18:39
Code Status As Directed
Resuscitation Status: Full Code
11/02/24 18:46
Aspirin 325 mg PO NOW STA
11/02/24 18:52
CARDIOLOGY CONSULT Routine
Consulting Provider: Mat Jama
Was physician already notified: Yes
Reason for consult: Significantly worsening SOB. LT arm pain. Severe plaque in LAD on CT
11/02/24 18:53
Echo 2D MMode Color/Doppler Routine
Reason for Study: Significantly worsening SOB. LT arm pain. Signif. LAD plaque on CT Chest
11/02/24 18:59
US Periph Venous LOWER Ext Shaquille Routine
Comment:
Reason For Exam: Elevated D-Dimer. DVTs?
11/02/24 19:00
Atorvastatin [Lipitor] 40 mg PO QPM
11/02/24 19:07
Heparin 4,000 units IV NOW STA
Heparin Protocol- PTT Orders As Directed
PTT per Heparin protocol: -Obtain CBC and baseline PTT - if not already collected.
-Obtain PTT 6 hours from start of infusion. Then, every 6 hours until 2 consecutive
PTT's are therapeutic. Then, PTT Daily.
-With each rate change, obtain PTT every 6 hours until 2 consecutive PTT's are
therapeutic. Then, PTT Daily.
Notify MD As Directed
Notify physician if: PTT is greater than or equal to 200.
11/02/24 19:15
Heparin 54064 Units/250 ml 25,000 units in 250 ml IV PER PROTOCOL
Weight to be used for heparin protocol in kilograms (kg):: 70.1
Protocol:: Cardiac Tx/Acute Coronary
PTT Goal Range to be used:: PTT 73 to 111 seconds
Order type:: Initial
INITIAL Infusion Dose (UNITS/KG/hr) & then follow protocol:: 15 units/kg/hr
Infusion Dose in UNITS/hr & then follow protocol (UNITS/hr):: 1,050
INFUSION RATE in mL/hr & then follow protocol (mL/hr):: 10.5
PTT less than or equal to 64 seconds:: Increase rate by 200 units/hr (+ 2 mL/hr)
PTT 64.1 to 72.9 seconds:: Increase rate by 100 units/hr (+ 1 mL/hr)
PTT 73 to 111 seconds:: Target Range. No change in rate.
PTT 111.1 to 130.9 seconds:: Decrease rate by 100 units/hr (- 1 mL/hr)
PTT 131 to 199.9 seconds:: HOLD for 1 hr. Then decrease rate by 200 units/hr (- 2 mL/hr)
PTT greater than or equal to 200 seconds:: HOLD for 2 hrs & Notify Provider. Then decrease by 200 units/hr (-
2 mL/hr)
Lab follow-up:: Each change, PTT q6h until 2 consecutive are therapeutic. Then PTT
daily.
11/02/24 20:00
Electrocardiogram (*1) Routine
Reason for Study: CAD
Complete Blood Count/No Diff Urgent
Comment: Obtain baseline before beginning heparin infusion if not already collected
PTT Urgent
Comment: Obtain baseline before beginning heparin infusion if not already collected
Troponin I Q6H
11/03/24 01:15
Troponin I Q6H
11/03/24 07:15
Troponin I Q6H
11/03/24 13:15
Troponin I Q6H
11/03/24 19:15
Troponin I Q6H
Abnormal Lab Results
11/02/24
13:05
WBC 11.2 H 10^3/uL
(4.8-10.8)
MCHC 32.8 L g/dL
(33.0-37.0)
RDW 15.9 H %
(11.5-14.5)
Abs Immat Gran (auto) 0.1 H 10^3/uL
(0-0.05)
Absolute Neuts (auto) 8.7 H 10^3/uL
(1.4-6.5)
Absolute Lymphs (auto) 1.1 L 10^3/uL
(1.2-3.4)
Absolute Monos (auto) 1.1 H 10^3/uL
(0.1-0.6)
Immature Gran % 0.6 H %
(0-0.5)
Neutrophils % 77.3 H %
(42.2-75.2)
Lymphocytes % 9.4 L %
(20.5-51.1)
Monocytes % 10.1 H %
(1.7-9.3)
D-Dimer 0.96 H ug/mlFEU
(0.00-0.50)
Sodium 134 L mmol/L
(135-145)
Creatinine 0.5 L mg/dL
(0.6-1.0)
Glucose 121 H mg/dl
(70-99)
AST 39 H U/L
(14-36)
Troponin I 0.073 H* ng/ml
11/02/24 13:05
11/02/24 13:05
Vital Signs
Initial and Last Documented VS:
Initial Vital Signs
Temp Pulse Resp BP Pulse Ox
98.2 F 98 16 107/79 98
11/02/24 11:39 11/02/24 11:39 11/02/24 11:39 11/02/24 11:39 11/02/24 11:39
Last Documented Vital Signs
Temp Pulse Resp BP Pulse Ox
97.3 F 95 13 108/74 96
11/02/24 19:10 11/02/24 20:45 11/02/24 20:45 11/02/24 19:10 11/02/24 20:45
<Effie Montilla PA-C - Last Filed: 11/02/24 21:05>
MDM/Problems Addressed
Differential Diagnosis Includes:
69yoF here with worsening SOB x 24 hours and tachycardia. HR between 160-170 for several hours this morning according to her Apple Watch. Hx of colon cancer on chemo. HR 98 on arrival and sinus rhythm noted on monitor during initial exam.
Differential diagnosis includes but is not limited to: arrhythmia, CHF, ACS, PE
Initial ED plan: Triage EKG shows NSR with PACS and nonspecific T wave changes. Check cardiac labs, TSH, magnesium, D-dimer.
Final assessment: Troponin elevated at 0.073. D-dimer elevated and CTA chest subsequently ordered. Case signed out to Tra Lin PA-C awaiting CT results.
<Effie Montilla PA-C - Last Filed: 11/02/24 21:05>
*Pulse Oximetry
SaO2: 98
Oxygen Mode of Delivery: Room air
*EKG
Interpreted by ED Provider?: Yes
EKG Intrepretation Date: 11/02/24
Heart Rate: 95
Rate: normal
Rhythm: sinus and PAC's
[place]: normal axis
Interval: normal interval
QRS Pattern: normal QRS
Ischemia: other (nonspecific T wave changes)
<Jacky Lin PA-C - Last Filed: 11/02/24 18:58>
*Pulse Oximetry
Patient hypoxic: no
*Critical Care Note
Total Time (30-74mins, 75-104mins- exclusive of procedures): Not Applicable
<Jacky Lin PA-C - Last Filed: 11/02/24 18:58>
Update Note
Update Note:
Late entry, assumed care of patient from Effie Carringtonneli pending CT PE study. Study showed pneumonitis with no evidence of pulmonary embolism. Will be admitted to the hospitalist service due to heart palpitations with elevated troponin
ED Attending Note
<Effie Montilla PA-C - Last Filed: 11/02/24 21:05>
-
Portions of this chart may have been created with voice recognition software.� Occasional wrong word or��sound alike� substitutions may have occurred due to the inherent limitations of voice recognition software.
Discharge Plan
Departure
Patient Disposition: Admit
Date of Disposition: 11/02/24
Time of Disposition: 16:59
Presentation/result/management discussed w/ accepting MD/DO: Hospitalist
Discharge Problem:
Pneumonitis, Heart palpitations, Elevated troponin
Interventions
Interventions:
*Risk Screen - Suicide Last Done: 11/02/24 11:39
*General Assessment Last Done: 11/02/24 20:41
*Neglect/Abuse Screening Last Done: 11/02/24 11:39
*ED- Fall Risk Assessment Last Done: 11/02/24 20:41
*ED COVID-19 Vaccine History Last Done: 11/02/24 20:41
*Nursing Disposition Last Done: 11/02/24 21:02
ED- Cardiac Assessment Last Done: 11/02/24 17:08
[2024-11-02 13:24] LABS: Hematocrit 40.5 % (37.0-47.0); Hemoglobin 13.3 g/dL (12.0-16.0); Mean Corp Hgb Conc. 32.8 g/dL (33.0-37.0); Mean Corpuscular Volume 88.8 fL (81.0-99.0); Nucleated Red Blood Cells % 0 %; Platelet Count 228 10^3/uL (130-400); Red Cell Dist. Width 15.9 % (11.5-14.5)
[2024-11-02 13:44] LABS: ALT (SGPT) 27 U/L (0-35); AST (SGOT) 39 U/L (14-36); Albumin 4.3 g/dl (3.5-5.0); Alkaline Phosphatase 121 U/L (38-126); Blood Urea Nitrogen 15 mg/dl (7-17); Calcium 10.0 mg/dl (8.4-10.2); Carbon Dioxide 28 mmol/L (22-30); Chloride 100 mmol/L (98-107); Glucose 121 mg/dl (70-99); Magnesium 1.8 mg/dl (1.6-2.3); Potassium 3.5 mmol/L (3.5-5.1); Sodium 134 mmol/L (135-145); Total Protein 7.4 g/dl (6.3-8.2); eGFR > 60.00
[2024-11-02 13:45] LABS: Troponin I 0.073 ng/ml
[2024-11-02 14:13] LABS: D-Dimer 0.96 ug/mlFEU (0.00-0.50)
[2024-11-02] MEDS: PEPCID 20 MG PO (15:28)
--- NOTE | 2024-11-02 17:22 | HPS.HSE ---
Family Physician
-
Family Physician: Tricia Aranda
Chief Complaint
-
Shortness of breath
History of Present Illness
69 y/o female with past medical history of stage 4 colon cancer on chemotherapy (treatments every other week, follows with Ricardo Tabares), dyspnea on exertion, HFpEF, atrial tachycardia, possibly new interstitial lung disease, hypothyroidism as well as
additional past medical history listed in the Assessment/Plan section below, presented today with her daughter for evaluation of shortness of breath. Patient has been experiencing exertional dyspnea since being started on chemotherapy (started on
chemotherapy in May 2024), today her shortness of breath became significantly worse in which she had shortness of breath while walking down the stairs. She typically has shortness of breath going up the steps but had dyspnea going down the steps
this morning. She also reported pain going from her left shoulder down her left arm during this episode. She now is only able to ambulate about 20 feet before having symptoms. Her Apple Watch indicated that her heart rate was between 160-170 beats
per minuts between 8am and 11am this morning. She is currently on Cardizem and did take her dose this morning (she stated that she took all of her medications this morning). She follows with Dr. Jamilah Sahni and her Lasix dose was increased from
20mg daily to 40mg daily yesterday for elevated BNP on outpatient labs. She weighs herself regularly and lost 4 pounds last night.
Medical History
Past Medical History
Past Medical History: Reports Other (As per HPI above)
Past Surgical History: Reports Other (Colon Resection. Cholecystectomy. Tonsillectomy.)
Social History
Tobacco: Former Smoker
Alcohol: Occasional
Drug: Marijuana (Medical Marijuana to help with cancer and chemotherapy related symptoms)
Family History
Family History: Not pertinent
Allergies / Home Medications
Allergies reflects when Allergies were last updated in [facility].
Home Medications with original date entered in [facility]
Allergy/Medication List:
Allergies
Allergy/AdvReac Type Severity Reaction Status Date / Time
fentanyl Allergy Unknown Verified 11/02/24 11:40
naproxen (From Naprosyn) Allergy Hives Verified 11/02/24 11:40
Home Medications
alprazolam 0.25 mg tablet 0.25 mg PO BIDPRN PRN Anxiety 07/15/24
gabapentin 300 mg capsule 300 mg PO BID Pain 07/15/24
levothyroxine 50 mcg tablet 50 mcg PO DAILY Thyroid 07/15/24
montelukast 10 mg tablet 10 mg PO DAILY Lung/Breathing Issues 07/15/24
olanzapine 5 mg tablet 5 mg PO HSPRN PRN Nausea 07/15/24
ondansetron HCl 8 mg tablet 8 mg PO Q8HPRN PRN Nausea 07/15/24
prochlorperazine maleate 10 mg tablet 10 mg PO Q6HPRN PRN Nausea 07/15/24
diltiazem HCl 180 mg capsule,extended release 24 hr 180 mg PO DAILY Arrhythmia #30 caps 07/20/24
docusate sodium 100 mg tablet 100 mg PO DAILY PRN constipation 11/02/24
encorafenib 75 mg capsule (Braftovi) 225 mg PO HS 11/02/24
furosemide 20 mg tablet (Lasix) 40 mg PO DAILY 11/02/24
loperamide 2 mg tablet 2 mg PO DAILYPRN PRN diarrhea 11/02/24
potassium chloride 10 mEq tablet,extended release 10 meq PO QPM 11/02/24
potassium chloride 10 mEq tablet,extended release 20 meq PO DAILY 11/02/24
pyridoxine (vitamin B6) 100 mg tablet (Vitamin B-6) 100 mg PO DAILY 11/02/24
therapeutic multivitamin 1 tab PO HS 11/02/24
Review of Systems
-
A 12 point ROS was completed and negative except as noted: Yes
Physical Exam
Vital Signs
Vital Signs
Temp Pulse Resp BP Pulse Ox
98.2 F 85 18 107/79 97
11/02/24 11:39 11/02/24 13:00 11/02/24 12:45 11/02/24 11:39 11/02/24 13:00
Physical Exam
General: No Apparent Distress
HEENT: NormoCephalic and Moist mucous membranes
Respiratory: Decreased Breath Sounds
Cardiac: S1/S2 and Tachycardia
GI: Soft, Non Tender and Normal Bowel Sounds
Skin: Warm and Dry
Neuro: Awake, Alert, AO x 3 and Nonfocal/grossly intact
Psych: Calm and Intact Judgment/Insight
Laboratory Results
-
11/02/24 13:05
11/02/24 13:05
Laboratory Results
Total Bilirubin 0.5 mg/dl (0.2-1.3) 11/02/24 13:05
AST 39 U/L (14-36) H 11/02/24 13:05
ALT 27 U/L (0-35) 11/02/24 13:05
Alkaline Phosphatase 121 U/L (38-126) 11/02/24 13:05
Troponin I 0.073 ng/ml H* 11/02/24 13:05
Impression/Plan
-
Assessment/Plan
Progressively Worsening Shortness of Breath -- worsened since May 2024+Left Arm Pain 11/02/24
Palpitations -- history of Paroxysmal Atrial Tachycardia
Recently admitted with multifactorial Dyspnea on Exertion 07/15/24
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
Previously with possible new ILD in June 2024 hospitalization
-Admit to IVU
-Continue home Cardizem dose
-May need additional prn IV beta benoit or Cardizem Drip
-ProBNP high at 2390, but lower than previous admission -- and last admission echo showed hyperdynamic EF so only PRN Lasix was provided at the time of discharge (prn for weight gain or SOB)
-Lasix was recently increased outpatient to 40 mg daily b/c of elevated proBNP outpatient -- continue Lasix
History of Acute HFpEF
Severe calcific atherosclerotic plaque in the left anterior descending coronary artery
Coronary Calcifications
Elevated troponin
-Trend troponins and check serial EKGs
-Patient has been seeing Dr. Jamilah Sahni outpatient
-I discussed case with on-call primary teaching assistant Dr. Jama, discussed her coronary plaque in her coronary LAD (on CT Chest) along with LT arm pain and severely worsened SOB in the setting of elevated troponin and D-Dimer (no PE) -- and we agreed that
patient can be started on Heparin Drip
-Patient does not have history of bleeding or significant risk factors for bleeding other than colon cancer -- I confirmed this with the patient at the time of admission
-Heparin Drip Cardiac/ACS protocol
-Aspirin 325 mg to be given now (patient confirmed to me on 11/02/24 that she is NOT allergic to Aspirin)
-Started high intensity statin -- patient agreeable
Elevated D-Dimer
-Possibly from cancer itself
-No PE on CT Chest
-Check serial EKGs and troponins as above
-Check lower extremity ultrasound for any DVT
Cardiomegaly on Chest CT
- Check echo
Leukocytosis
- Patient gets Neulasta outpatient
- No signs or symptoms of infection, confirmed with patient that she has no symptoms of an acute infection
Hypothyroidism
- Continue Levothyroxine
Anxiety
- Continue prn Xanax
Nausea
- Patient is on as needed prochlorperazine, Zofran, olanzapine as outpatient
Right adrenal gland adenoma 1.8 cm
- OP Follow up
Chemotherapy-induced neuropathy
-continue gabapentin
Drug-Induced Injury from Chemotherapy
Mild mediastinal lymphadenopathy on Chest CT
June 2024: LVH on echo concerning for possible hyperdynamic function vs HOCM
Stage IV colorectal carcinoma s/p resection, currently on chemotherapy
- Patient is due for infusion tomorrow for her 5-FU and another chemo med
- Continue Braftovi which patient says she HAS to continue taking, as per her oncologist
Fibromyalgia
Chronic Back Pain and Neck Pain
Migraines
Former smoker
Raynaud's
-In the past, patient took Procardia
DVT Prophylaxis: Heparin Drip. Avoid SCDs until lower extremity ultrasound rules out DVT.
Code Status: Full Code
Progressively worsened SOB with elevated troponin and D-Dimer is a high risk encounter.
[2024-11-02 18:49] VITALS: BMI 23.5
[2024-11-02 19:06] VITALS: BP 108/74
[2024-11-02 19:10] VITALS: BP 108/74
[2024-11-02] MEDS: HEPARIN 25000 UNITS/250 ML IV (20:04)
[2024-11-02] MEDS: HEPARIN 4000 UNITS IV (20:04)
[2024-11-02] MEDS: ASPIRIN 325 MG PO (20:06)
[2024-11-02] MEDS: LIPITOR 40 MG PO (20:07)
[2024-11-02 20:13] LABS: Hematocrit 37.8 % (37.0-47.0); Hemoglobin 12.7 g/dL (12.0-16.0); Mean Corp Hgb Conc. 33.6 g/dL (33.0-37.0); Mean Corpuscular Volume 88.1 fL (81.0-99.0); Platelet Count 222 10^3/uL (130-400); Red Cell Dist. Width 16.0 % (11.5-14.5)
[2024-11-02 20:25] LABS: APTT 29.1 Sec (23.4-35.0)
[2024-11-02 20:42] LABS: Troponin I 0.084 ng/ml
[2024-11-02 21:21] VITALS: BMI 23.4
[2024-11-02] MEDS: NEURONTIN 300 MG PO (22:10)
[2024-11-02] MEDS: THERAGRAN 1 TABLET PO (22:10)
[2024-11-02] MEDS: KCL 10 MEQ PO (22:10)
[2024-11-02 22:56] VITALS: BP 124/87
[2024-11-02 23:00] VITALS: BP 123/69
[2024-11-02 23:14] LABS: Troponin I 0.076 ng/ml
[2024-11-03] VITALS (15 sets, daily range): BP systolic 90–133; BP diastolic 18–92; BMI 23.5
[2024-11-03 03:09] LABS: Hematocrit 37.8 % (37.0-47.0); Hemoglobin 12.3 g/dL (12.0-16.0); Mean Corp Hgb Conc. 32.5 g/dL (33.0-37.0); Mean Corpuscular Volume 87.9 fL (81.0-99.0); Nucleated Red Blood Cells % 0 %; Platelet Count 222 10^3/uL (130-400); Red Cell Dist. Width 16.1 % (11.5-14.5)
[2024-11-03 03:22] LABS: APTT 72.8 Sec (23.4-35.0)
[2024-11-03 03:33] LABS: ALT (SGPT) 26 U/L (0-35); AST (SGOT) 43 U/L (14-36); Albumin 3.9 g/dl (3.5-5.0); Alkaline Phosphatase 122 U/L (38-126); Blood Urea Nitrogen 11 mg/dl (7-17); Calcium 9.5 mg/dl (8.4-10.2); Carbon Dioxide 28 mmol/L (22-30); Chloride 102 mmol/L (98-107); Estimated Creatinine Clearance 89 ml/min; Glucose 99 mg/dl (70-99); Magnesium 1.8 mg/dl (1.6-2.3); Potassium 3.3 mmol/L (3.5-5.1); Sodium 135 mmol/L (135-145); Total Protein 6.7 g/dl (6.3-8.2); eGFR > 60.00
[2024-11-03 04:05] LABS: Troponin I 0.057 ng/ml
[2024-11-03] MEDS: SYNTHROID 50 MCG PO (05:52)
[2024-11-03] MEDS: KCL 20 MEQ PO ×2 (05:52→08:41)
--- NOTE | 2024-11-03 07:30 | PTCARENOTE ---
Received patient A&Ox4, on RA, NSR, BP WNL, GI/ continent, on Heparin Drip, pending PTT draw and Echo exam.
--- NOTE | 2024-11-03 08:31 | CON.CAR ---
Addendum entered and electronically signed by Samy Sy DO 11/03/24 14:03:
I saw and examined the patient.
The Construction Laborer's note was reviewed and I agree with the note.
Comment:
Plan:
She had rapid tachycardia and dyspnea and appears to be in HF.
IV diuresis.
pBNP elevated but lower than earlier this year.
Check echo
Likely nonMI troponin in setting of hx AT and HF
Consider oncology eval as she has been on chemo
Continue IV heparin for now
Check fasting lipids. LDL was June.
Consider pulm eval given CT chest findings of pneumontitis.
Patient with known PAT and frequent PACs. Potassium was low at 3.3 on admission. Replete lytes as needed. Some of her chemotherapy drugs could be contributing to electrolyte abnormalities
Cont Cardizem
Original Note:
Consultation
Consultation Request
Date/Time Consultation Requested: 11/02/2024 at 1852
Date/Time Consultation Performed: 11/03/2024 at 0734
Requesting Provider: Dr. Lopez
Performing Provider: Dr. Sy
Reason for Consultation: Left arm pain, acute HF
Medical History
-
History of Present Illness:
Patient came to the ER yesterday with increased SOB and LUE pain was admitted with possible CHF and elevated troponin, cardiology is now consulted. You recall patient was admitted from 07/15/2024 until 07/20/2024 with acute HF and possible new ILD
associated with her chemotherapy drugs that she takes for her stage IV colorectal cancer. Patient is managed at [facility]. Patient was seen at our cardiology office for follow-up on 07/23/2024 and at that time was taking Lasix 20 mg daily PRN. Then
starting in September her labs were abnormal with elevated BNP and symptoms of SOB prompting increased dosing of her Lasix to initially 20 mg daily and then just prior to admission she was up to 40 mg daily. Patient denies any orthopnea or PND, denies
any LE edema or bloating. Patient reports her biggest symptom is MELENDEZ. Patient does not feel any symptomatic improvement following initial attempts at diuresis. Patient also had a new onset left shoulder and arm pain on the day of admission with
pain from her shoulder down to her fingers and was unlike anything she had ever had before. Initial troponin in the ER was 0.073 and then peaked at 0.084 before trending down. No recurrence of chest pain. There was concern for coronary
calcification seen on previous CT of the chest 07/15/2024. Patient continues to follow at [facility] for her colorectal cancer and most recently is taking regimen of 5-FU, Vectibix and Braftovi. Patient also has a history of frequent PACs and PAT and was
started on a regimen of Cardizem CD 180 mg daily during her admission in June and reports symptomatic improvement with that therapy, but noticed that she had a heart rate up at 160-170 in the setting of her left arm symptoms yesterday. Despite HR
being elevated she had no symptoms of palpitations.
PMH:
Chronic HFpEF
Frequent PACs and PAT
LVH on echo concerning for possible hyperdynamic function vs HOCM 07/16/[address] chest 07/15/24
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
Stage IV colorectal carcinoma s/p resection, currently on chemotherapy managed at [facility]
5-FU
Vectibix which can cause electrolyte abnormalities
Braftovi which can cause possible CHF and QT prolongation
Fibromyalgia
Former smoker
PAT
Raynaud's
Past Medical History
Past Medical History: Other (in HPI)
Past Surgical History: Bowel Resection (partial colon resection), Cholecystectomy, Gynecological (D&C) and Tonsilectomy
Social History
Tobacco: Former Smoker
Alcohol: Occasional
Drug: None
Personal:
Employment: Employed
Family History
Family History: Cancer
Allergies / Home Medications
Allergy/AdvReac Type Severity Reaction Status Date / Time
fentanyl Allergy Unknown Verified 11/02/24 19:12
naproxen (From Naprosyn) Allergy Hives Verified 11/02/24 11:40
�Medication �Instructions �Recorded �Confirmed �Type
alprazolam 0.25 mg tablet 0.25 mg PO BIDPRN PRN Anxiety 07/15/24 11/02/24 History
gabapentin 300 mg capsule 300 mg PO BID Pain 07/15/24 11/02/24 History
levothyroxine 50 mcg tablet 50 mcg PO DAILY Thyroid 07/15/24 11/02/24 History
montelukast 10 mg tablet 10 mg PO DAILY Lung/Breathing 07/15/24 11/02/24 History
Issues
olanzapine 5 mg tablet 5 mg PO HSPRN PRN Nausea 07/15/24 11/02/24 History
ondansetron HCl 8 mg tablet 8 mg PO Q8HPRN PRN Nausea 07/15/24 11/02/24 History
prochlorperazine maleate 10 mg 10 mg PO Q6HPRN PRN Nausea 07/15/24 11/02/24 History
tablet
diltiazem HCl 180 mg 180 mg PO DAILY Arrhythmia #30 caps 07/20/24 11/02/24 Rx
capsule,extended release 24 hr
docusate sodium 100 mg tablet 100 mg PO DAILY PRN constipation 11/02/24 11/02/24 History
encorafenib 75 mg capsule 225 mg PO HS 11/02/24 11/02/24 History
(Braftovi)
furosemide 20 mg tablet (Lasix) 40 mg PO DAILY 11/02/24 11/02/24 History
loperamide 2 mg tablet 2 mg PO DAILYPRN PRN diarrhea 11/02/24 11/02/24 History
potassium chloride 10 mEq 10 meq PO QPM 11/02/24 11/02/24 History
tablet,extended release
potassium chloride 10 mEq 20 meq PO DAILY 11/02/24 11/02/24 History
tablet,extended release
pyridoxine (vitamin B6) 100 mg 100 mg PO DAILY 11/02/24 11/02/24 History
tablet (Vitamin B-6)
therapeutic multivitamin 1 tab PO HS 11/02/24 11/02/24 History
Review of Systems
-
History Source: Patient
All other systems: Negative unless noted
Physical Exam
Vital Signs
Temp Pulse Resp BP Pulse Ox
98.1 F 93 23 110/68 98
11/03/24 08:00 11/03/24 06:15 11/03/24 06:15 11/03/24 06:00 11/03/24 06:15
GEN: NAD. AAOx3
HEENT: EOMI
LUNGS: RA. Clear anterolaterally without wheeze
CV: Sinus tach with frequent PACs on tele. Reg with ectopy05/01 BSM
ABD: ND
EXT: No edema B/L
NEURO: Gross non-focal
SKIN: No rash
Lab Results
11/03/24 02:27
11/03/24 02:27
Troponin I 0.057 ng/ml H* 11/03/24 02:27
Xun-J-Gghrwugvnni Pept 2390 pg/ml 11/02/24 13:05
Impression / Plan
-
PCP: Dr. Tricia Aranda
Primary Upholstery Tech: Dr. Jamilah Sahni
[facility]: Dr. Bartolome Hernandez
Impression:
Admitted with MELENDEZ, rapid HR and chest/LUE pain 11/02/24
Acute on chronic HFpEF
Elevated Troponin
Frequent PACs and PAT
LVH on echo concerning for possible hyperdynamic function vs HOCM 07/16/[address] chest 07/15/24
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
Stage IV colorectal carcinoma s/p resection, currently on chemotherapy managed at [facility]
5-FU
Vectibix which can cause electrolyte abnormalities
Braftovi which can cause possible CHF and QT prolongation
Fibromyalgia
Former smoker
PAT
Raynaud's
Hypokalemia
ECHO 07/16/24: EF 65-70%, mild LVH, elevated LVOT velocity noted, mild , mod to moderate-severe MR, possible mild SERGEI, possible mild dilation of ascending aorta
Echo 11/03/24: Study pending
Plan:
-Patient came to the ER yesterday with increased SOB and LUE pain was admitted with possible CHF and elevated troponin, cardiology is now consulted. You recall patient was admitted from 07/15/2024 until 07/20/2024 with acute HF and possible new ILD
associated with her chemotherapy drugs that she takes for her stage IV colorectal cancer. Patient is managed at [facility]. Patient was seen at our cardiology office for follow-up on 07/23/2024 and at that time was taking Lasix 20 mg daily PRN. Then
starting in September her labs were abnormal with elevated BNP and symptoms of SOB prompting increased dosing of her Lasix to initially 20 mg daily and then just prior to admission she was up to 40 mg daily. Patient denies any orthopnea or PND, denies
any LE edema or bloating. Patient reports her biggest symptom is MELENDEZ. Patient does not feel any symptomatic improvement following initial attempts at diuresis. Patient also had a new onset left shoulder and arm pain on the day of admission with
pain from her shoulder down to her fingers and was unlike anything she had ever had before. Initial troponin in the ER was 0.073 and then peaked at 0.084 before trending down. No recurrence of chest pain. There was concern for coronary
calcification seen on previous CT of the chest 07/15/2024. Patient continues to follow at [facility] for her colorectal cancer and most recently is taking regimen of 5-FU, Vectibix and Braftovi. Patient also has a history of frequent PACs and PAT and was
started on a regimen of Cardizem CD 180 mg daily during her admission in June and reports symptomatic improvement with that therapy, but noticed that she had a heart rate up at 160-170 in the setting of her left arm symptoms yesterday. Despite HR
being elevated she had no symptoms of palpitations.
-ECG reviewed by me is SR with frequent PACs
-Patient had left arm pain on admission. There is previous coronary calcification seen on CT of chest. Initial troponin was elevated at 0.073 and then peaked at 0.084 and is now trending down. No recurrence of symptoms. No acute ischemic changes
seen on ECG. CAD is a possibility, but patient is also chronically on 5-FU which could cause coronary spasm. Troponin elevation could also be linked to acute HF. Patient was started on heparin gtt overnight and we made a plan to check echo and
look for WMA. Pending results of echo we can decide on medical therapy versus more invasive evaluation. Patient is aware that if cardiac cath is required we will likely need input from hematology/oncology given her colorectal cancer and that she
is currently undergoing chemotherapy at [facility].
-Check echo
-Continue heparin gtt
-Start aspirin 81 mg daily, ordered by me
-Check CVE, the LDL was 38 on last check 07/16/2024
-Patient with known PAT and frequent PACs. Potassium was low at 3.3 on admission. Some of her chemotherapy drugs could be contributing to electrolyte abnormalities, but there has also been a recent increase in diuretic dosing. Regardless
recommend supplementation to maintain potassium greater than 4 magnesium greater than 2, KCl and magnesium oxide dosing adjusted by me 11/03/24
-Continue Cardizem CD1 180 mg daily
-proBNP is elevated 2390 although it is lower than her level back in June that was up to 4500. CT chest is read as more of pneumonitis than acute HF. Patient with MELENDEZ. Patient reports no significant symptomatic improvement following initial
attempts at PO diuresis and 4 lb weight loss thus far. Would recommend pulmonology consultation based on CT chest findings. There may also be a link to her chronic chemotherapy and so would consider hematology/oncology evaluation
-Patient has only been ordered her usual dose of Lasix 40 mg PO daily thus far, will give a dose of Lasix 40 mg IV x 1 on 11/03/2024 and follow-up for diuretic response and see if she has any symptomatic improvement.
[2024-11-03] MEDS: LASIX 40 MG PO (08:42)
[2024-11-03] MEDS: NEURONTIN 300 MG PO ×2 (08:42→20:01)
[2024-11-03] MEDS: VITAMIN B-6 100 MG PO (08:42)
--- NOTE | 2024-11-03 09:56 | W.PN.HOSP.TC ---
Today's Communication/Plan
-
See plan
Assessment / Plan
Assessment / Plan
Physical Exam
General: No Apparent Distress
HEENT: Normocephalic and Moist mucous membranes
Respiratory: Decreased Breath Sounds
Cardiac: S1/S2 and Tachycardia
GI: Soft, Non Tender and Normal Bowel Sounds
Skin: Warm and Dry
Neuro: Awake, Alert, AO x 3 and Nonfocal/grossly intact
Psych: Calm and Intact Judgment/Insight
Assessment/Plan
Progressively Worsening Shortness of Breath -- worsened since May 2024+Left Arm Pain 11/02/24
Palpitations -- history of Paroxysmal Atrial Tachycardia
Recently admitted with multifactorial Dyspnea on Exertion 07/15/24
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
Previously with possible new ILD in June 2024 hospitalization
-Continue home Cardizem dose
-May need additional prn IV beta benoit or Cardizem Drip
-ProBNP high at 2390, but lower than previous admission -- and last admission echo showed hyperdynamic EF so only PRN Lasix was provided at the time of discharge (prn for weight gain or SOB)
-Lasix was recently increased outpatient to 40 mg daily b/c of elevated proBNP outpatient -- continue Lasix. 1x IV Lasix on 11/03/24.
-Will consult pulmonary
-Echo
-Potential cardiac cath
History of Acute HFpEF
Severe calcific atherosclerotic plaque in the left anterior descending coronary artery
Coronary Calcifications
Elevated troponin
-Trend troponins and check serial EKGs
-Patient has been seeing Dr. Jamilah Sahni outpatient
-I discussed case with on-call greensman Dr. Jama, discussed her coronary plaque in her coronary LAD (on CT Chest) along with LT arm pain and severely worsened SOB in the setting of elevated troponin and D-Dimer (no PE) -- and we agreed that
patient can be started on Heparin Drip
-Patient does not have history of bleeding or significant risk factors for bleeding other than colon cancer -- I confirmed this with the patient at the time of admission
-Heparin Drip Cardiac/ACS protocol
-Aspirin 325 mg to be given now (patient confirmed to me on 11/02/24 that she is NOT allergic to Aspirin)
-Continue Aspirin 81 mg daily
-Started high intensity statin -- patient agreeable
Hypokalemia
-Replaced
-Continue to monitor BMP
Elevated D-Dimer
-Possibly from cancer itself
-No PE on CT Chest
-Check serial EKGs and troponins as above
-Check lower extremity ultrasound for any DVT
Cardiomegaly on Chest CT
- Echo
Leukocytosis
- Patient gets Neulasta outpatient
- No signs or symptoms of infection, confirmed with patient that she has no symptoms of an acute infection
Hypothyroidism
- Continue Levothyroxine
Anxiety
- Continue prn Xanax
Nausea
- Patient is on as needed prochlorperazine, Zofran, olanzapine as outpatient
Right adrenal gland adenoma 1.8 cm
- OP Follow up
Chemotherapy-induced neuropathy
-Continue gabapentin
Drug-Induced Injury from Chemotherapy
Mild mediastinal lymphadenopathy on Chest CT
June 2024: LVH on echo concerning for possible hyperdynamic function vs HOCM
Stage IV colorectal carcinoma s/p resection, currently on chemotherapy
- Patient is due for infusion tomorrow for her 5-FU and another chemo med
- Patient said that her oncologist recommended holding further Braftovi
- Finance Mgr recommended to consult oncology given patient's SOB could be from chemo -- will consult oncology
Fibromyalgia
Chronic Back Pain and Neck Pain
Migraines
Former smoker
Raynaud's
-In the past, patient took Procardia
DVT Prophylaxis: Heparin Drip. SCDs.
Code Status: Full Code
Anticipated Discharge: > 48 hours
Subjective/Interval History
-
Date of Service: November 03, 2024
Patient was seen and examined. She reported she still has shortness of breath when getting up.
Objective Data
-
Labs:
Laboratory Results
11/03/24 11/03/24
02:27 09:48
WBC 12.3 H
Hgb 12.3
Hct 37.8
Plt Count 222
APTT 72.8 H Pending
Sodium 135
Potassium 3.3 L
Chloride 102
Carbon Dioxide 28
BUN 11
Creatinine 0.5 L
Glucose 99
Calcium 9.5
Total Bilirubin 0.5
AST 43 H
ALT 26
Alkaline Phosphatase 122
Vital Signs:
Vital Signs
Temp Pulse Resp BP Pulse Ox
98.1 F 76 23 112/86 98
11/03/24 08:00 11/03/24 08:42 11/03/24 06:15 11/03/24 08:42 11/03/24 06:15
[2024-11-03] MEDS: MAGNESIUM OXIDE 400 MG PO (10:28)
[2024-11-03 10:39] LABS: APTT 123.0 Sec (23.4-35.0)
[2024-11-03] MEDS: KCL 40 MEQ PO (11:47)
[2024-11-03] MEDS: CARDIZEM CD 180 MG PO (11:49)
--- NOTE | 2024-11-03 14:13 | CM ---
Initial assessment completed with patient who lives alone in a 2 story home plus basement with B/B on 2nd and full B/B on , 7 steps to enter. 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 Does have a SPC in the home. No in-home
services. Does have HC-POA. No VA benefits. No psychiatric hospitalizations. PCP is Dr. Tricia Koo. Pharmacy is [facility] on [address] in [place]. Discharge POC: Anticipate home with no needs. Observe for need for HH RN.
[2024-11-03] MEDS: LASIX 40 MG IV (15:40)
[2024-11-03] MEDS: LIPITOR 40 MG PO (17:05)
[2024-11-03] MEDS: KCL 10 MEQ PO (17:05)
[2024-11-03 17:45] LABS: APTT 61.2 Sec (23.4-35.0)
--- NOTE | 2024-11-03 18:45 | PTCARENOTE ---
Gave report to Daniel Erazo, all questions answered.
[2024-11-03] MEDS: HEPARIN 25000 UNITS/250 ML IV (19:17)
[2024-11-03] MEDS: SINGULAIR 10 MG PO (20:01)
[2024-11-03] MEDS: THERAGRAN 1 TABLET PO (21:42)
[2024-11-04] VITALS (8 sets, daily range): BP systolic 104–122; BP diastolic 73–90; PULSE 86; O2SAT 98; BMI 22.1
[2024-11-04 02:39] LABS: Hematocrit 38.6 % (37.0-47.0); Hemoglobin 12.7 g/dL (12.0-16.0); Mean Corp Hgb Conc. 32.9 g/dL (33.0-37.0); Mean Corpuscular Volume 87.3 fL (81.0-99.0); Nucleated Red Blood Cells % 0 %; Platelet Count 235 10^3/uL (130-400); Red Cell Dist. Width 15.9 % (11.5-14.5)
[2024-11-04 02:57] LABS: APTT 92.5 Sec (23.4-35.0)
[2024-11-04 03:15] LABS: ALT (SGPT) 28 U/L (0-35); AST (SGOT) 37 U/L (14-36); Albumin 4.2 g/dl (3.5-5.0); Alkaline Phosphatase 117 U/L (38-126); Blood Urea Nitrogen 12 mg/dl (7-17); Calcium 9.5 mg/dl (8.4-10.2); Carbon Dioxide 28 mmol/L (22-30); Chloride 100 mmol/L (98-107); Estimated Creatinine Clearance 89 ml/min; Glucose 109 mg/dl (70-99); Magnesium 1.8 mg/dl (1.6-2.3); Potassium 3.8 mmol/L (3.5-5.1); Sodium 135 mmol/L (135-145); Total Protein 7.0 g/dl (6.3-8.2); eGFR > 60.00
[2024-11-04] MEDS: SYNTHROID 50 MCG PO (06:29)
--- NOTE | 2024-11-04 08:00 | PTCARENOTE ---
Assumed care of pt at 0715 following shift report. Pt awake and resting quietly in bed. Denies c/o pain. Reports MELENDEZ that pt states is unchanged since arrival to ER. No resp. distress noted. Remains on RA w/ Pox 98-100%. RR low to mid 20's. No
cough. Heparin gtt infusing per ordered parameters. Physical assessment completed as documented. Call phillip w/in pt reach, safe environment maintained.
[2024-11-04] MEDS: VITAMIN B-6 100 MG PO (08:14)
[2024-11-04] MEDS: CARDIZEM CD 180 MG PO (08:19)
[2024-11-04] MEDS: NEURONTIN 300 MG PO (08:19)
[2024-11-04] MEDS: KCL 20 MEQ PO (08:19)
[2024-11-04] MEDS: MAGNESIUM OXIDE 400 MG PO (08:19)
[2024-11-04] MEDS: LASIX 40 MG PO (08:19)
--- NOTE | 2024-11-04 09:15 | CON.ONC ---
Consultation
-
Date Consultation Requested: 11/04/24
Date Consultation Performed: 11/04/24
Requesting Provider: Avtar Lopez MD
Performing Provider: Charlotte Alaniz MD
Reason for Consultation: stage IV CRC
Impression
Impression
stage IV BRAF mutant colorectal cancer, on treatment w/ encorafenib/panitumumab/5FU per Dr. Hernandez at [facility]
Dyspnea, HF, tachycardia, + troponin
ILD
Plan
Plan
Case d/w Dr Hernandez
ILD has been ongoing, not needing O2. Unclear if related to treatment, but with aggressive cancer, would not discontinue current regimen which is controlling her disease
I don't think she needs steroids or further pulmonary testing, though will await pulm consult
Can hold encorafenib for now. Dr. Hernandez is considering a dose reduction.
Mgmt of HF per cardiology. Encorafenib can cause decreased EF, but echo this admission is unchanged since June, with normal EF
Med Onc will sign off. Please call with any questions.
Patient History
History of Present Illness
This is a 69 yo F w/ BRAF mutant stage IV colorectal cancer. She was diagnosed in Mar 2024, underwent resection at [facility] w/ Dr Mancini, and was found to have mets to the peritoneum and liver. She was started on FOLFIRINOX, changed to
5FU/panitumumab/encorafenib after mutation testing showed BRAF mutation. She's been struggling with SOB for months, and presented yesterday with worsening breathing trouble.
Pro-BNP was 2390.
Chest CT showed moderate inflammatory ILD, severe CAD, mild cardiomegaly.
Echo on 11/03/24 showed EF 55-60%, with mild LVH, and mild/mod MR.
She's being diuresed.
Heparin infusing in setting of slight troponin elevation
Past-Medical/Surgical History
Past Medical History
Past Medical History: Reports Other (As per HPI above)
Past Surgical History: Reports Other (Colon Resection. Cholecystectomy. Tonsillectomy.)
Social History
Tobacco: Former Smoker
Alcohol: Occasional
Drug: Marijuana (Medical Marijuana to help with cancer and chemotherapy related symptoms)
Family History
Family History: Not pertinent
Patient Medication
�Medication �Instructions �Recorded �Confirmed �Last Taken �Type
alprazolam 0.25 mg tablet 0.25 mg PO BIDPRN PRN Anxiety 07/15/24 11/02/24 Unknown History
gabapentin 300 mg capsule 300 mg PO BID Pain 07/15/24 11/02/24 11/02/24 History
levothyroxine 50 mcg tablet 50 mcg PO DAILY Thyroid 07/15/24 11/02/24 11/02/24 History
montelukast 10 mg tablet 10 mg PO DAILY Lung/Breathing 07/15/24 11/02/24 11/02/24 History
Issues
olanzapine 5 mg tablet 5 mg PO HSPRN PRN Nausea 07/15/24 11/02/24 Unknown History
ondansetron HCl 8 mg tablet 8 mg PO Q8HPRN PRN Nausea 07/15/24 11/02/24 11/02/24 History
prochlorperazine maleate 10 mg 10 mg PO Q6HPRN PRN Nausea 07/15/24 11/02/24 Unknown History
tablet
diltiazem HCl 180 mg 180 mg PO DAILY Arrhythmia #30 caps 07/20/24 11/02/24 11/02/24 Rx
capsule,extended release 24 hr
docusate sodium 100 mg tablet 100 mg PO DAILY PRN constipation 11/02/24 11/02/24 Unknown History
encorafenib 75 mg capsule 225 mg PO HS Cancer 11/02/24 11/02/24 11/01/24 History
(Braftovi)
furosemide 20 mg tablet (Lasix) 40 mg PO DAILY Fluid 11/02/24 11/02/24 11/02/24 History
Retention/Swelling
loperamide 2 mg tablet 2 mg PO DAILYPRN PRN diarrhea 11/02/24 11/02/24 Unknown History
potassium chloride 10 mEq 10 meq PO QPM Electrolyte Repletion 11/02/24 11/02/24 11/01/24 History
tablet,extended release
potassium chloride 10 mEq 20 meq PO DAILY Electrolyte 11/02/24 11/02/24 11/02/24 History
tablet,extended release Repletion
pyridoxine (vitamin B6) 100 mg 100 mg PO DAILY Supplement 11/02/24 11/02/24 11/02/24 History
tablet (Vitamin B-6)
therapeutic multivitamin 1 tab PO HS Supplement 11/02/24 11/02/24 11/01/24 History
Active Medications
Generic Name Dose Route Start Last Admin
Trade Name Freq PRN Reason Stop Dose Admin
Alprazolam 0.25 mg 11/02/24 21:10
Alprazolam 0.25 Mg Tablet PO 11/30/24 21:09
BIDPRN PRN
Anxiety
Atorvastatin Calcium 40 mg 11/02/24 19:00 11/03/24 17:05
Atorvastatin (Lipitor) 40 Mg Tablet PO 11/30/24 18:59 40 mg
QPM ОЛЕГ Administration
Bisacodyl 10 mg 11/02/24 21:10
Bisacodyl 10 Mg Rectal Suppository RECTAL 11/30/24 21:09
[id number] PRN
constipation
Diltiazem HCl 180 mg 11/03/24 12:00 11/04/24 08:19
Diltiazem 180 Mg Extended Release (24 H) Capsule PO 12/01/24 11:59 180 mg
DAILY ОЛЕГ Administration
Furosemide 40 mg 11/03/24 08:00 11/04/24 08:19
Furosemide 20 Mg Tablet PO 12/01/24 07:59 40 mg
DAILY ОЛЕГ Administration
Gabapentin 300 mg 11/02/24 21:10 11/04/24 08:19
Gabapentin 300 Mg Capsule PO 11/30/24 21:09 300 mg
BID ОЛЕГ Administration
Heparin Sodium (Porcine) 500 unit 11/02/24 13:30
Heparin Flush Pf (100 Unit/Ml) 5 Ml Syringe IV 11/30/24 13:29
PER PROTOCOL ОЛЕГ
Heparin Sodium 25,000 units in 250 mls @ 0 mls/hr 11/02/24 19:15 11/03/24 19:17
Heparin 68538 Units/250 Ml IV 250 mls
PER PROTOCOL ОЛЕГ Administration
Protocol
Per Protocol
Levothyroxine Sodium 50 mcg 11/03/24 06:00 11/04/24 06:29
Levothyroxine 50 Mcg Tablet PO 12/01/24 05:59 50 mcg
DAILY@0600 ОЛЕГ Administration
Magnesium Oxide 400 mg 11/03/24 10:00 11/04/24 08:19
Magnesium Oxide 400 Mg Tablet PO 12/01/24 09:59 400 mg
DAILY ОЛЕГ Administration
Montelukast Sodium 10 mg 11/03/24 20:00 11/03/24 20:01
Montelukast Sodium 10 Mg Tablet PO 12/01/24 19:59 10 mg
DAILY@2000 ОЛЕГ Administration
Multivitamins Therapeutic 1 tablet 11/02/24 22:00 11/03/24 21:42
Multivitamin Tablet PO 11/30/24 21:59 1 tablet
HS ОЛЕГ Administration
Non-Formulary Medication 0 mg 11/03/24 22:00 11/03/24 20:03
Encorafenib [Braftovi] PO 12/01/24 21:59 Not Given
HS ОЛЕГ
Olanzapine 5 mg 11/02/24 21:10
Olanzapine 5 Mg Tablet PO 11/30/24 21:09
HSPRN PRN
Nausea
Ondansetron HCl 8 mg 11/02/24 21:33
Ondansetron 4 Mg Tablet PO 11/30/24 21:32
Q8HPRN PRN
nausea
Polyethylene Glycol 17 grams 11/02/24 21:10
Polyethylene Glycol Powder 17 Grams Packet PO 11/30/24 21:09
DAILYPRN PRN
constipation
Potassium Chloride 20 meq 11/03/24 08:00 11/04/24 08:19
Potassium Chloride 10 Meq Extended Release Tablet PO 12/01/24 07:59 20 meq
DAILY ОЛЕГ Administration
Potassium Chloride 10 meq 11/02/24 21:10 11/03/24 17:05
Potassium Chloride 10 Meq Extended Release Tablet PO 11/30/24 21:09 10 meq
QPM ОЛЕГ Administration
Pyridoxine HCl 100 mg 11/03/24 08:00 11/04/24 08:14
Pyridoxine 50 Mg Tablet PO 12/01/24 07:59 100 mg
DAILY ОЛЕГ Administration
Senna/Docusate Sodium 1 tablet 11/02/24 21:10
Docusate W/Senna (Nancy-Colace) Tablet PO 11/30/24 21:09
BIDPRN PRN
constipation
Review of Systems
-
All Other Systems: Reviewed and Negative
Physical Exam
-
General: Well Developed, Well Nourished, No Apparent Distress and Comfortable
HEENT: Negative Jaundice
Cardiology: Normal Sinus Rhythm (with ectopy)
Pulmonary: Clear
GI: Soft and Normal Bowel Sounds
Musculoskeletal: No Clubbing, No Cyanosis and No Edema
Extremities: No C/C/E
Neurology: Non Focal, No Lateralizing Symptoms and No Word Finding Difficulty
Skin: Other (hyperpigmented)
Psych: Calm and Intact Judgement/Insight
Labs
Lab Results
WBC 9.8 10^3/uL (4.8-10.8) 11/04/24 02:30
RBC 4.42 10^6/uL (4.20-5.40) 11/04/24 02:30
Hgb 12.7 g/dL (12.0-16.0) 11/04/24 02:30
Hct 38.6 % (37.0-47.0) 11/04/24 02:30
MCV 87.3 fL (81.0-99.0) 11/04/24 02:30
MCH 28.7 pg (27.0-31.0) 11/04/24 02:30
MCHC 32.9 g/dL (33.0-37.0) L 11/04/24 02:30
RDW 15.9 % (11.5-14.5) H 11/04/24 02:30
Plt Count 235 10^3/uL (130-400) 11/04/24 02:30
MPV 9.7 fL (7.4-10.4) 11/04/24 02:30
Abs Immat Gran (auto) 0.1 10^3/uL (0-0.05) H 11/04/24 02:30
Absolute Neuts (auto) 5.9 10^3/uL (1.4-6.5) 11/04/24 02:30
Absolute Lymphs (auto) 2.2 10^3/uL (1.2-3.4) 11/04/24 02:30
Absolute Monos (auto) 1.1 10^3/uL (0.1-0.6) H 11/04/24 02:30
Absolute Eos (auto) 0.4 10^3/uL (0-0.7) 11/04/24 02:30
Absolute Basos (auto) 0.1 10^3/uL (0-0.2) 11/04/24 02:30
Immature Gran % 0.7 % (0-0.5) H 11/04/24 02:30
Neutrophils % 60.6 % (42.2-75.2) 11/04/24 02:30
Lymphocytes % 22.6 % (20.5-51.1) 11/04/24 02:30
Monocytes % 11.0 % (1.7-9.3) H 11/04/24 02:30
Eosinophils % 4.4 % (0-6) 11/04/24 02:30
Basophils % 0.7 % (0-2) 11/04/24 02:30
Creatinine 0.6 mg/dL (0.6-1.0) 11/04/24 02:30
Vital Signs
Vital Signs
Temp Pulse Resp BP Pulse Ox
98.2 F 84 17 102/80 98
11/04/24 07:43 11/04/24 08:19 11/04/24 08:06 11/04/24 08:19 11/04/24 08:00
[2024-11-04 09:17] LABS: APTT 102.2 Sec (23.4-35.0)
--- NOTE | 2024-11-04 09:40 | CON.PUL ---
Consultation
Consultation Request
Date/Time Consultation Requested: 11/04/2024813
Date/Time Consultation Performed: 11/04/2024929
Requesting Provider: Dr. Lopez
Performing Provider: Dr. Reyes
Reason for Consultation: SOB/ILD
Medical History
-
Chief Complaint: SOB
History of Present Illness:
69-year-old female with a past medical history of stage IV metastatic colorectal cancer with history of resection now on chemotherapy since May 2024, fibromyalgia, restrictive lung disease and hypothyroidism who presents with fast heart rate +
SOB. Patient told triage that she is being treated for colon cancer and that one of the medications causes heart issues. The patient has been experiencing shortness of breath that started about 6 weeks after her chemotherapy was initiated in May
2024. Prior to that she was not short of breath. She does have a history of paroxysmal atrial tachycardia, and per the patient she had seen a sign erector and repairer (Dr. Drew) at [facility] due to abnormal EKG. She is not exactly sure what he diagnosed her as.
She is a former tobacco smoker, smoked 7 cigarettes a day for 35 years, quit in 2016. She says that she gets steroids during her chemotherapy infusions and this makes her shortness of breath tremendously better. 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 The patient's daughter, Caryl, is present at bedside. The patient was admitted to the IVU and started on diuresis as her proBNP was elevated. Cardiology also consulted.
Patient's troponin is found to be high at a peak of 0.084 on 11/02/2024. She was treated with heparin drip for this. CTA chest was performed on 11/02/2024 which was negative for PE and showed evidence of interstitial pneumonitis. Patient continues to
be SOB despite being diuresed and pulmonary service now consulted for additional management/recommendations.
When I saw the patient she was resting in a chair in no acute distress. She is currently on room air, breathing comfortably, with heart rate 97. She continues to feel short of breath mainly with activity. She gets her chemotherapy every other
week. She denies a personal history of asthma or COPD. She does not take inhalers. Her father had COPD but he also was a cigarette smoker. The patient currently denies chest pain, SONG, nausea, fevers or chills
PMHx: Hypothyroidism, fibromyalgia, stage IV colon cancer s/p resection at [facility]/on chemotherapy since May 2024
PSHx: Cholecystectomy, tonsillectomy, colon resection
Past Medical History
Past Medical History: Other (Above as per HPI)
Past Surgical History: Other (Above as per HPI)
Social History
Tobacco: Former Smoker (25-34-oavv-year history, quit in 2015)
Alcohol: Occasional
Drug: Marijuana (Medicinal THC to help with cancer and chemotherapy related symptoms)
Employment: Disabled (Works as an defense attorney)
Family History
Family History: Cancer (Father + mother)
Allergies / Home Medications
Allergies
Allergy/AdvReac Type Severity Reaction Status Date / Time
fentanyl Allergy Unknown Verified 11/02/24 19:12
naproxen (From Naprosyn) Allergy Hives Verified 11/02/24 11:40
Home Medications
�Medication �Instructions �Recorded �Confirmed �Last Taken �Type
alprazolam 0.25 mg tablet 0.25 mg PO BIDPRN PRN Anxiety 07/15/24 11/02/24 Unknown History
gabapentin 300 mg capsule 300 mg PO BID Pain 07/15/24 11/02/24 11/02/24 History
levothyroxine 50 mcg tablet 50 mcg PO DAILY Thyroid 07/15/24 11/02/24 11/02/24 History
montelukast 10 mg tablet 10 mg PO DAILY Lung/Breathing 07/15/24 11/02/24 11/02/24 History
Issues
olanzapine 5 mg tablet 5 mg PO HSPRN PRN Nausea 07/15/24 11/02/24 Unknown History
ondansetron HCl 8 mg tablet 8 mg PO Q8HPRN PRN Nausea 07/15/24 11/02/24 11/02/24 History
prochlorperazine maleate 10 mg 10 mg PO Q6HPRN PRN Nausea 07/15/24 11/02/24 Unknown History
tablet
diltiazem HCl 180 mg 180 mg PO DAILY Arrhythmia #30 caps 07/20/24 11/02/24 11/02/24 Rx
capsule,extended release 24 hr
docusate sodium 100 mg tablet 100 mg PO DAILY PRN constipation 11/02/24 11/02/24 Unknown History
encorafenib 75 mg capsule 225 mg PO HS Cancer 11/02/24 11/02/24 11/01/24 History
(Braftovi)
furosemide 20 mg tablet (Lasix) 40 mg PO DAILY Fluid 11/02/24 11/02/24 11/02/24 History
Retention/Swelling
loperamide 2 mg tablet 2 mg PO DAILYPRN PRN diarrhea 11/02/24 11/02/24 Unknown History
potassium chloride 10 mEq 10 meq PO QPM Electrolyte Repletion 11/02/24 11/02/24 11/01/24 History
tablet,extended release
potassium chloride 10 mEq 20 meq PO DAILY Electrolyte 11/02/24 11/02/24 11/02/24 History
tablet,extended release Repletion
pyridoxine (vitamin B6) 100 mg 100 mg PO DAILY Supplement 11/02/24 11/02/24 11/02/24 History
tablet (Vitamin B-6)
therapeutic multivitamin 1 tab PO HS Supplement 11/02/24 11/02/24 11/01/24 History
Review of Systems
-
History Source: Patient
All other systems: Negative unless noted
Vitals / Labs / Diagnostic Testing
Vital Signs
Temp Pulse Resp BP Pulse Ox
98.1 F 84 17 102/80 98
11/04/24 11:17 11/04/24 08:19 11/04/24 08:06 11/04/24 08:19 11/04/24 08:10
Lab Data
11/04/24 02:30
09/09/25 02:30
Laboratory Results
11/03/24 11/04/24 11/04/24
17:27 02:30 08:50
APTT 61.2 H 92.5 H 102.2 H
Diagnostic Testing:
Physical Exam
-
HEENT: Normocephalic and Anicteric
Cardiovascular: Irregular Rhythm and Peripheral Edema (Trace LE edema bilaterally (R>L))
Respiratory: Wheeze (negative), Rales (Bibasilar (R >L)), Rhonchi (negative), Accessory Resp Muscle Use (negative) and Other (No stridor)
GI: Soft, Non Distended, Non Tender and Normal Bowel Sounds
Neurology: AO x 3 and Tremors (negative)
Skin: Warm and Dry
General: Respiratory Distress (negative), Comfortable, Fever (negative) and Chills (negative)
Assessment
-
Assessment: 69-year-old female with a past medical history of stage IV metastatic colorectal cancer with history of resection now on chemotherapy since May 2024, fibromyalgia, restrictive lung disease and hypothyroidism who presents with fast
heart rate + SOB. Patient told triage that she is being treated for colon cancer and that one of the medications causes heart issues. The patient has been experiencing shortness of breath that started about 6 weeks after her chemotherapy was
initiated in May 2024. Prior to that she was not short of breath. She does have a history of paroxysmal atrial tachycardia, and per the patient she had seen a sign erector and repairer (Dr. Drew) at [facility] due to abnormal EKG. She is not exactly sure what he
diagnosed her as. She is a former tobacco smoker, smoked 7 cigarettes a day for 35 years, quit in 2016. She says that she gets steroids during her chemotherapy infusions and this makes her shortness of breath tremendously better. She works as an
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 The patient's daughter, Caryl, is present at bedside. The patient was admitted to the IVU and started on diuresis as her proBNP was elevated. Cardiology also
consulted. Patient's troponin is found to be high at a peak of 0.084 on 11/02/2024. She was treated with heparin drip for this. CTA chest was performed on 11/02/2024 which was negative for PE and showed evidence of interstitial pneumonitis. Patient
continues to be SOB despite being diuresed and pulmonary service now consulted for additional management/recommendations.
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
Impression:
#Shortness of breath - suspect due to RAD/asthma in setting of underlying ILD (PFTs performed on 07/17/2024 show she does not have COPD)
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
#Mild restrictive lung defect with mild gas exchange capacity defect that normalizes when accounting for alveolar volume involved in gas exchange (via PFTs from on 07/17/2024)
#Elevated troponin - likely due to demand ischemia vs NSTEMI
#Stage IV colorectal cancer s/p resection, and has been on chemotherapy since May 2024 (initially on FOLFIRINOX that was changed to 5FU/panitumumab/encorafenib after BRAF mutation discovered
#Valvular heart disease with mild�moderate MR + mild
Plan:
- She started to become SOB about 6 weeks after chemotherapy started in May 2024; she carries a history of PAT, previously seen by Cardiology at [facility] with Dr. Drew
- She says that prior to arrival she noticed her HR was fast and then she became SOB
- Given patient's initial tachycardia with elevated troponin with severe calcific atherosclerotic plaque in the LAD, there may be a component of unstable angina ongoing from CAD
- Troponin peaked at 0.084 on 11/02/2024 � no longer need to continue trending at this time
- Despite her getting diuresed this hospitalization, she is continuing to feel SOB --> this makes me think she has an airway issue; she denies cough, wheezing or chest pain
- Pt also has mild centrilobular emphysema, and the SOB that she has been experiencing since June 2024 markedly improves whenever she gets steroids during her chemo infusions
- Given that she is steroid responsive and her absolute eosinophils are currently 400-500, it is not unreasonable to start her on bronchodilators + ICS
- While patient hospitalized I will start her on DuoNebs + budesonide, however need to monitor heart rate in the setting of a beta agonist
- She should be discharged home on a LABA/ICS - can use Breo 200mcg 1 inhalation once daily vs Symbicort 160mcg 2 puffs BID, rinsing mouth after use
- Outpatient pulmonary office follow up with full PFTs and symptom management
- She did have PFTs recently on 07/17/2024 that showed a mild restrictive lung defect with improvement seen in the small lung cordero with a bronchodilator, and normalization of a mildly reduced gas exchange capacity - this is consistent with small
airway disease (i.e. asthma vs RAD)
- Although patient has evidence of interstitial lung changes with suspected UIP pattern given basilar predominance of subpleural reticular opacities with honeycombing (predominantly in the left base) and mild traction bronchiectasis, her
interstitial changes appear to be in similar distribution with slightly increased prominence compared to prior CTA chest on 07/15/2024
- Do not believe that patient is having an acute flare of her ILD given the similar prominence on her current CT chest compared to CT chest in June 2024; hold off on systemic steroids for now
- As stated above, I will get outpatient PFTs to trend her restriction
- She denies history of asbestos exposure, inhalational exposure to volatile chemicals/dust/beryllium, or a family history of ILD
- Cardiology on board and recs appreciated
- Continue heparin gtt - defer ischemic eval to cardiology
- Pt now back on home dose of lasix, 40mg PO daily
- While on lasix, replete K>4, Mg>2 lesly in setting of known PAT
- Continue Cardizem
- Oncology consulted; recs reviewed
- Maintain SpO2 >90-94%; currently saturating 98% on room air
- Maintain MAP>65
- Maintain euglycemia with goal BG 140-180
- Trend H/H and transfuse if needed to keep Hb>7g/dL; keep plt>20k, unless there is concern for bleeding then keep plt>50k
- Incentive spirometer encouraged 10x per hour for at least 4 hrs a day
- DVT ppx: heparin gtt --> will likely be DC'd today per cardiology as she is having brief episodes of PAT with no A-fib seen; once heparin gtt DC'd then start HSQ vs LMWH for DVT ppx
Pulmonary service will continue to follow along. Outpatient pulmonary office follow-up will be arranged
Data:
CTA Chest 11/02/2024:
1. Moderate inflammatory interstitial pneumonitis in the lungs (predominantly involving the subpleural lower lungs in a symmetric distribution).
2. Severe calcific atherosclerotic plaque in the LAD.
3. Mild cardiomegaly.
4. Mild mediastinal lymphadenopathy.
5. Right IJ chemotherapy Mediport in place.
Bilateral lower extremity duplex US 11/02/2024: No sonographic evidence for lower extremity venous thrombosis.
Total time spent today was 58 minutes for this encounter. Time includes reviewing laboratory test/imaging results, reviewing pertinent medical records, obtaining and reviewing medical history, performing an appropriate exam, ordering medications,
tests and procedures. Time also includes documentation of this encounter, coordinating patient care and communicating with other healthcare professionals. Total time does not include separately billed tests performed on this date of service.
--- NOTE | 2024-11-04 12:36 | W.PN.CARDCBS ---
Today's Communication / Plan
-
Will give another dose of IV Lasix
Pulmonary to see for pneumonitis seen on CAT scan
DC IV heparin has only brief episodes of PAT and no A-fib
Impression / Plan
-
PCP: Dr. Tricia Aranda
Primary Rn Transitional Care: Dr. Jamilah Sahni
[facility]: Dr. Bartolome Hernandez
Impression:
Admitted with MELENDEZ, rapid HR and chest/LUE pain 11/02/24
Acute on chronic HFpEF
Elevated Troponin, nonischemic myocardial injury
Frequent PACs and PAT
LVH on echo concerning for possible hyperdynamic function vs HOCM 07/16/[address] chest 07/15/24
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
Stage IV colorectal carcinoma s/p resection, currently on chemotherapy managed at [facility]
5-FU
Vectibix which can cause electrolyte abnormalities
Braftovi which can cause possible CHF and QT prolongation
Fibromyalgia
Former smoker
PAT
Raynaud's
ECHO 07/16/24: EF 65-70%, mild LVH, elevated LVOT velocity noted, mild , mod to moderate-severe MR, possible mild SERGEI, possible mild dilation of ascending aorta
Echo 11/03/24: EF 55 to 60%, mild aortic stenosis with mean pressure gradient of 12 mmHg, mild to moderate MR
Plan:
She continues with shortness of breath.
Will continue IV Lasix and give another dose today
Pulmonary consult regarding pneumonitis on CAT scan
Telemetry reviewed. Brief episodes of atrial tachycardia. No indication for IV heparin and will discontinue
Discussed with nursing
PREADMIT DATA
-Patient came to the ER yesterday with increased SOB and LUE pain was admitted with possible CHF and elevated troponin, cardiology is now consulted. You recall patient was admitted from 07/15/2024 until 07/20/2024 with acute HF and possible new ILD
associated with her chemotherapy drugs that she takes for her stage IV colorectal cancer. Patient is managed at [facility]. Patient was seen at our cardiology office for follow-up on 07/23/2024 and at that time was taking Lasix 20 mg daily PRN. Then
starting in September her labs were abnormal with elevated BNP and symptoms of SOB prompting increased dosing of her Lasix to initially 20 mg daily and then just prior to admission she was up to 40 mg daily. Patient denies any orthopnea or PND, denies
any LE edema or bloating. Patient reports her biggest symptom is MELENDEZ. Patient does not feel any symptomatic improvement following initial attempts at diuresis. Patient also had a new onset left shoulder and arm pain on the day of admission with
pain from her shoulder down to her fingers and was unlike anything she had ever had before. Initial troponin in the ER was 0.073 and then peaked at 0.084 before trending down. No recurrence of chest pain. There was concern for coronary
calcification seen on previous CT of the chest 07/15/2024. Patient continues to follow at [facility] for her colorectal cancer and most recently is taking regimen of 5-FU, Vectibix and Braftovi. Patient also has a history of frequent PACs and PAT and was
started on a regimen of Cardizem CD 180 mg daily during her admission in June and reports symptomatic improvement with that therapy, but noticed that she had a heart rate up at 160-170 in the setting of her left arm symptoms yesterday. Despite HR
being elevated she had no symptoms of palpitations.
Progress Note - Rn Transitional Care
Subjective
Date of Service: November 04, 2024
No complaints
Objective
Labs:
11/04/24 02:30
11/04/24 02:30
Labs
Hgb 12.7 g/dL (12.0-16.0) 11/04/24 02:30
Hct 38.6 % (37.0-47.0) 11/04/24 02:30
Plt Count 235 10^3/uL (130-400) 11/04/24 02:30
APTT 102.2 Sec (23.4-35.0) H 11/04/24 08:50
Sodium 135 mmol/L (135-145) 11/04/24 02:30
Potassium 3.8 mmol/L (3.5-5.1) 11/04/24 02:30
BUN 12 mg/dl (7-17) 11/04/24 02:30
Creatinine 0.6 mg/dL (0.6-1.0) 11/04/24 02:30
Glucose 109 mg/dl (70-99) H 11/04/24 02:30
Troponins
11/02/24 11/02/24 11/02/24
13:05 20:00 22:30
Troponin I 0.073 H* 0.084 H* 0.076 H*
11/03/24 11/03/24 11/03/24
02:27 03:10 07:15
Troponin I 0.057 H* Cancelled Cancelled
11/03/24 11/03/24 11/03/24
09:10 13:15 15:10
Troponin I Cancelled Cancelled Cancelled
11/03/24
19:15
Troponin I Cancelled
Vital Signs and I&O:
Vital Signs
Temp Pulse Resp BP Pulse Ox
98.1 F 84 17 102/80 98
11/04/24 11:17 11/04/24 08:19 11/04/24 08:06 11/04/24 08:19 11/04/24 08:10
Vital Signs
Temp Pulse Resp BP Pulse Ox
98.1 F 84 17 102/80 98
11/04/24 11:17 11/04/24 08:19 11/04/24 08:06 11/04/24 08:19 11/04/24 08:10
Intake & Output
11/02/24 11/03/24 11/04/24 11/05/24
06:59 06:59 06:59 06:59
Intake Total 1200 / 1212.5 530.0 / 530.0
Balance 1200 / 1212.5 530.0 / 530.0
Physical Exam
Physical Exam
General: Well developed, well nourished in NAD.
Neck: Supple, no JVD, HJR, carotids +2 B/L, no bruits bilaterally.
Heart: Non displaced PMI, RRR, no murmurs, No S3, S4, no rubs.
Lungs: Scattered rhonchi
Extremities: No clubbing, cyanosis or edema bilaterally.
Neuro: Grossly nonfocal, awake, alert and oriented x3.
[2024-11-04] MEDS: LASIX 40 MG IV (13:15)
--- NOTE | 2024-11-04 14:39 | W.PN.HOSP.TC ---
Today's Communication/Plan
-
Discharge tomorrow
Assessment / Plan
Assessment / Plan
Physical Exam
General: No Apparent Distress
HEENT: Normocephalic and Moist mucous membranes
Respiratory: Decreased Breath Sounds
Cardiac: S1/S2 and Tachycardia
GI: Soft, Non Tender and Normal Bowel Sounds
Skin: Warm and Dry
Neuro: Awake, Alert, AO x 3 and Nonfocal/grossly intact
Psych: Calm and Intact Judgment/Insight
Assessment/Plan
Progressively Worsening Shortness of Breath (multifactorial from heart failure and interstitial lung disease) -- worsened since May 2024+Left Arm Pain 11/02/24
Palpitations -- history of Paroxysmal Atrial Tachycardia
Recently admitted with multifactorial Dyspnea on Exertion 07/15/24
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
Previously with possible new ILD in June 2024 hospitalization
-Continue home Cardizem dose
-May need additional prn IV beta benoit or Cardizem Drip
-ProBNP high at 2390, but lower than previous admission -- and last admission echo showed hyperdynamic EF so only PRN Lasix was provided at the time of discharge (prn for weight gain or SOB)
-Lasix was recently increased outpatient to 40 mg daily b/c of elevated proBNP outpatient -- IV Lasix given on 11/03/24 and on 11/04/24
-Per pulmonary: Breo 200mcg 1 inhalation once daily
-Pulmonary follow-up outpatient
-Incentive spirometer encouraged 10x per hour for at least 4 hours a day
-Echo similar to previous echo in June 2024
History of Acute HFpEF
Severe calcific atherosclerotic plaque in the left anterior descending coronary artery
Coronary Calcifications
Elevated troponin
-Patient has been seeing Dr. Jamilah Sahni outpatient
-I discussed case with on-call ict quality assurance engineer Dr. Jama, discussed her coronary plaque in her coronary LAD (on CT Chest) along with LT arm pain and severely worsened SOB in the setting of elevated troponin and D-Dimer (no PE) -- and we agreed that
patient can be started on Heparin Drip at the time of admission
-Patient does not have history of bleeding or significant risk factors for bleeding other than colon cancer -- I confirmed this with the patient at the time of admission
-Heparin Drip Cardiac/ACS protocol given previously during this hospitalization
-Continue Aspirin 81 mg daily
-Started high intensity statin -- patient agreeable
Hypokalemia
-Replaced
-Continue to monitor BMP
Elevated D-Dimer
-Possibly from cancer itself
-No PE on CT Chest
-Lower extremity ultrasound with no DVT
Cardiomegaly on Chest CT
- Echo similar to previous echo in June 2024
Leukocytosis
- Patient gets Neulasta outpatient
- No signs or symptoms of infection, confirmed with patient that she has no symptoms of an acute infection
Hypothyroidism
- Continue Levothyroxine
Anxiety
- Continue prn Xanax
Nausea
- Patient is on as needed prochlorperazine, Zofran, olanzapine as outpatient
Right adrenal gland adenoma 1.8 cm
- OP Follow up
Chemotherapy-induced neuropathy
-Continue gabapentin
Drug-Induced Injury from Chemotherapy
Mild mediastinal lymphadenopathy on Chest CT
June 2024: LVH on echo concerning for possible hyperdynamic function vs HOCM
Stage IV colorectal carcinoma s/p resection, currently on chemotherapy
- Patient is due for infusion tomorrow for her 5-FU and another chemo med
- Patient said that her oncologist recommended holding further Braftovi -- can hold encorafenib for now. Patient's oncologist Dr. Hernandez is considering a dose reduction.
- Calender Roll Operator recommended to consult oncology given patient's SOB could be from chemo -- will consult oncology
Fibromyalgia
Chronic Back Pain and Neck Pain
Migraines
Former smoker
Raynaud's
-In the past, patient took Procardia
DVT Prophylaxis: SCDs.
Code Status: Full Code
More than 30 minutes spent in discharge including
Final examination of the patient
Summarizing hospital stay
Instructions for continuing care to all relevant caregivers
Preparation of discharge records, prescriptions, and referral forms
Total time spent (in minutes): 41
Anticipated Discharge: Today
Subjective/Interval History
-
Date of Service: November 04, 2024
Patient was seen and examined. She denied any new complaints. Still with shortness of breath on exertion.
Objective Data
-
Labs:
Laboratory Results
11/04/24 11/04/24
02:30 08:50
WBC 9.8
Hgb 12.7
Hct 38.6
Plt Count 235
APTT 92.5 H 102.2 H
Sodium 135
Potassium 3.8
Chloride 100
Carbon Dioxide 28
BUN 12
Creatinine 0.6
Glucose 109 H
Calcium 9.5
Total Bilirubin 0.7
AST 37 H
ALT 28
Alkaline Phosphatase 117
Vital Signs:
Vital Signs
Temp Pulse Resp BP Pulse Ox
98.1 F 106 17 116/81 98
11/04/24 11:17 11/04/24 13:16 11/04/24 08:06 11/04/24 13:16 11/04/24 08:10
I&O
11/03/24 11/04/24 11/05/24
06:59 06:59 06:59
Intake Total 1200 / 1212.5 807.5 / 807.5
Balance 1200 / 1212.5 807.5 / 807.5
--- NOTE | 2024-11-04 14:55 | CM ---
Addendum entered by Justin Narvaez 11/04/24 15:46:
Cost of Breo 200mcg 1 inhalation BID is $382.83/month. Patient is fine with the cost.
Original Note:
Monitoring H/H. Therapy orders placed today. Discharge POC: Await therapy eval for recommendations.
--- NOTE | 2024-11-04 15:22 | PTOTSP ---
The patient was able to ambulate and perform stairs, mild shortness of breath with stairs although otherwise remained stable in 90's on room air. The patient offered no concerns regarding mobility upon discharge home. No PT needs identified at this
time, will sign off.
[2024-11-04] MEDS: SYMBICORT 160/4.5 MCG INHALER 2 PUFF INH (15:26)
--- NOTE | 2024-11-04 15:28 | PTCARENOTE ---
Pt ambulated in [place] w/ PT and Resp Therapy. Pox remained >90% per report. Pt continues to report feeling MELENDEZ 'like I did when I got here'. No distress noted. HR 120-130's (ST w/ occasional PAC, PVC) recovered to HR 80-90's at rest. Pt denies any
pain, specifically CP. Pt aware of potential for d/c home today.
--- NOTE | 2024-11-04 15:49 | CM ---
Patient has been medically cleared for discharge to home with no additional skilled services. Patient's brother will transport home.
[2024-11-04] MEDS: KCL 10 MEQ PO (17:39)
[2024-11-04] MEDS: LIPITOR 40 MG PO (17:40)
== END 2024-11-04 18:06 | disposition home or self-care (01) | DRG 196 ==
LOC: ICU 19:29
PROVIDERS: Physician Assistant; ADMITTING PHYSICIAN Hospitalist; CONSULT PHYSICIAN Internal Medicine Critical Care Medicine; EMERGENCY PHYSICIAN Emergency Medicine; FAMILY PHYSICIAN Internal Medicine; OTHER PHYSICIAN Internal Medicine Hematology & Oncology; OTHER PHYSICIAN Nuclear Medicine Nuclear Cardiology
DX: J84.89 Other specified interstitial pulmonary diseases (principal); I50.33 Acute on chronic diastolic (congestive) heart failure; C19 Malignant neoplasm of rectosigmoid junction; C78.6 Secondary malignant neoplasm of retroperitoneum and peritoneum; C78.7 Secondary malignant neoplasm of liver and intrahepatic bile duct; I5A Non-ischemic myocardial injury (non-traumatic); Z79.899 Other long term (current) drug therapy; I25.10 Atherosclerotic heart disease of native coronary artery without angina pectoris; D72.829 Elevated white blood cell count, unspecified; E03.9 Hypothyroidism, unspecified; F41.9 Anxiety disorder, unspecified; D35.01 Benign neoplasm of right adrenal gland; G62.0 Drug-induced polyneuropathy; T45.1X5A Adverse effect of antineoplastic and immunosuppressive drugs, initial encounter; R59.0 Localized enlarged lymph nodes; E87.6 Hypokalemia; G43.909 Migraine, unspecified, not intractable, without status migrainosus; G89.29 Other chronic pain; I73.00 Raynaud's syndrome without gangrene; J43.2 Centrilobular emphysema; J45.909 Unspecified asthma, uncomplicated; M79.7 Fibromyalgia; K59.00 Constipation, unspecified; Z79.890 Hormone replacement therapy; Z87.891 Personal history of nicotine dependence
CPT/HCPCS: 71275; 80053; 83735; 83880; 84443; 84484; 85025; 85027; 85379; 85730; 93005; 93306; 93970; 94640; 97162; 99285; Q9967

== ENCOUNTER 2025-01-16 16:19 | Emergency (ER) | payer MEDICARE, OTHER, SELFPAY ==
[2025-01-16 16:27] VITALS: BP 133/79
--- NOTE | 2025-01-16 17:51 | ED.GENMED ---
History of Present Illness
General
Chief Complaint: Fever
Source: patient
Exam Limitations: none
Time Seen by Provider: 01/16/25 17:36
History of Present Illness
History of Present Illness:
69-year-old female with history of stage IV colon cancer currently under treatment presents complaining of 3 days worth of a fever. The temperature has been as high as 100.7. She notes a chronic runny nose. She notes chronic shortness of breath.
No new urinary symptoms. She does note diarrhea but denies any significant abdominal pain. No significant cough. She spoke with her oncologist who sent her in here for further evaluation. She did have a sigmoidoscopy 4 days ago however no
biopsies or polyps removed.
Phy Exam
Physical Exam
Physical Exam:
General: Well-appearing female no acute respiratory distress HEENT: Normal cephalic atraumatic heart: Irregular rate and rhythm
Lungs: Clear
Abdomen is soft and nontender extremities: No cyanosis or edema
Skin warm no rash
Course
Orders/Labs/Results
Orders:
Orders
01/16/25 17:50
CR Chest - 2 Views Urgent
Comment:
Reason For Exam: fever
01/16/25 18:14
Complete Blood Count/With Diff Urgent
Blood Culture Q30M
RALPH Source: Blood/Venous
Specimen Description:
01/16/25 18:18
COVID-19 Antigen Urgent
Source: Nasal Swab
Influenza A+B Rapid Molecular Urgent
RALPH Source: Nasal Swab
Specimen Description:
01/16/25 19:48
Comprehensive Metabolic Panel Urgent
Urinalysis Reflex To Culture Urgent
Date Specimen was Collected: 01/16/25
Time Specimen was Collected: 18:12
Urine Microscopic Reflex Cult Urgent
Blood Culture Q30M
RALPH Source: Blood/Venous
Specimen Description:
Urine Culture Urgent
RALPH Source: U
Specimen Description:
Date Specimen was Collected: 01/16/25
Time Specimen was Collected: 18:12
Abnormal Lab Results
01/16/25 01/16/25
18:14 19:48
WBC 12.5 H 10^3/uL
(4.8-10.8)
Hgb 11.7 L g/dL
(12.0-16.0)
Hct 36.7 L %
(37.0-47.0)
MCHC 31.9 L g/dL
(33.0-37.0)
RDW 17.9 H %
(11.5-14.5)
Abs Immat Gran (auto) 0.1 H 10^3/uL
(0-0.05)
Absolute Neuts (auto) 9.1 H 10^3/uL
(1.4-6.5)
Absolute Lymphs (auto) 1.1 L 10^3/uL
(1.2-3.4)
Absolute Monos (auto) 1.2 H 10^3/uL
(0.1-0.6)
Absolute Eos (auto) 0.9 H 10^3/uL
(0-0.7)
Immature Gran % 0.8 H %
(0-0.5)
Lymphocytes % 9.0 L %
(20.5-51.1)
Monocytes % 9.7 H %
(1.7-9.3)
Eosinophils % 7.0 H %
(0-6)
Sodium 131 L mmol/L
(135-145)
Potassium 3.0 L mmol/L
(3.5-5.1)
Chloride 96 L mmol/L
(98-107)
Creatinine 0.5 L mg/dL
(0.6-1.0)
Glucose 124 H mg/dl
(70-99)
AST 43 H U/L
(14-36)
Alkaline Phosphatase 182 H U/L
(38-126)
Urine Ketones 2+ A
(Negative)
Leukocyte Esterase Rfl 1+ A
(Negative)
Urine Bacteria (Reflex) Few A
(Negative)
Urine Albumin (Reflex) 2+ A
(Neg - Trace)
01/16/25 18:14
01/16/25 19:48
Vital Signs
Initial and Last Documented VS:
Initial Vital Signs
Temp Pulse Resp BP Pulse Ox
98.3 F 54 16 133/79 98
01/16/25 16:27 01/16/25 16:27 01/16/25 16:27 01/16/25 16:27 01/16/25 16:27
Last Documented Vital Signs
Temp Pulse Resp BP Pulse Ox
98.9 F 65 16 111/76 99
01/16/25 19:55 01/16/25 19:55 01/16/25 19:55 01/16/25 19:55 01/16/25 19:55
MDM/Problems Addressed
Differential Diagnosis Includes:
Patient here with intermittent fever over 3 days. Patient is currently undergoing chemotherapy. She is likely immunocompromise. Will check blood work blood cultures urinalysis with culture chest x-ray COVID flu.
*Pulse Oximetry
SaO2: 98
Oxygen Mode of Delivery: Room air
Patient hypoxic: no
*Critical Care Note
Total Time (30-74mins, 75-104mins- exclusive of procedures): Not Applicable
Update Note
Update Note:
Work appear unrevealing. COVID and flu negative no acute findings noted on chest x-ray. Urinalysis without infection. Potassium is 3.0 patient is made aware. She does have potassium tablets she will continue taking these. She wishes to go home.
She will follow-up with her oncology team. Blood culture pending. She was told to expect a call if her blood cultures are positive
ED Attending Note
-
Portions of this chart may have been created with voice recognition software.� Occasional wrong word or��sound alike� substitutions may have occurred due to the inherent limitations of voice recognition software.
Discharge Plan
Departure
Patient Disposition: Home (Routine Discharge)
Date of Disposition: 01/16/25
Time of Disposition: 21:11
Patient with high blood pressure during this ER visit?: No
Discharge Problem:
Fever
Instructions: Fever, Adult (DC)
Prescriptions:
No Action
ondansetron HCl 8 mg tablet
8 mg PO Q8HPRN PRN (Reason: Nausea)
olanzapine 5 mg tablet
5 mg PO HSPRN PRN (Reason: Nausea)
prochlorperazine maleate 10 mg tablet
10 mg PO Q6HPRN PRN (Reason: Nausea)
alprazolam 0.25 mg tablet
0.25 mg PO BIDPRN PRN (Reason: Anxiety)
levothyroxine 50 mcg tablet
50 mcg PO DAILY
gabapentin 300 mg capsule
300 mg PO BID
montelukast 10 mg tablet
10 mg PO DAILY
diltiazem HCl 180 mg Capsule,Extended Release 24hr
180 mg PO DAILY Qty: 30 0RF
loperamide 2 mg Tablet
2 mg PO DAILYPRN PRN (Reason: diarrhea)
therapeutic multivitamin Tablet
1 tab PO HS
potassium chloride 10 mEq tablet extended release
10 meq PO QPM
pyridoxine (vitamin B6) [Vitamin B-6] 100 mg Tablet
100 mg PO DAILY
docusate sodium 100 mg Tablet
100 mg PO DAILY PRN (Reason: constipation)
Braftovi 75 mg Capsule
225 mg PO HS
Patient Comments:
filled through [facility]
potassium chloride 10 mEq tablet extended release
20 meq PO DAILY
furosemide [Lasix] 20 mg tablet
40 mg PO DAILY
Patient Comments:
pt says that her dr told her on 11/01/24 to take 40mg Sunday, 20mg Sunday, and 40mg Sunday, then check back with dr
fluticasone furoate-vilanterol [Breo Ellipta] 200-25 mcg/dose blister with device
1 inh inhalation DAILY Qty: 60 1RF
atorvastatin 40 mg Tablet
40 mg PO QPM Qty: 30 1RF
magnesium oxide 400 mg (241.3 mg magnesium) Tablet
400 mg PO DAILY Qty: 20 0RF
Referrals:
Tricia Aranda, [Family Provider, Internal Medicine]
Activity Restrictions/Additional Instructions:
Stay hydrated. Continue fever control if needed. Return if worse. You should receive a call if your blood cultures are positive
Interventions
Interventions:
*Risk Screen - Suicide Last Done: 01/16/25 16:27
*General Assessment Last Done: 01/16/25 16:27
*Neglect/Abuse Screening Last Done: 01/16/25 16:31
*ED- Fall Risk Assessment Last Done: 01/16/25 17:23
*ED COVID-19 Vaccine History Last Done: 01/16/25 17:23
*ED Influenza Vaccine History Last Done: 01/16/25 17:23
ED- Neurological Assessment Last Done: 01/16/25 17:23
ED-Skin Assessment Last Done: 01/16/25 17:23
Discharge Date and Time
Print Language: LUXEMBOURGER
[2025-01-16 18:21] LABS: Hematocrit 36.7 % (37.0-47.0); Hemoglobin 11.7 g/dL (12.0-16.0); Mean Corp Hgb Conc. 31.9 g/dL (33.0-37.0); Mean Corpuscular Volume 87.0 fL (81.0-99.0); Nucleated Red Blood Cells % 0 %; Platelet Count 249 10^3/uL (130-400); Red Cell Dist. Width 17.9 % (11.5-14.5)
[2025-01-16 18:40] LABS: COVID-19 Antigen Negative (Negative)
--- NOTE | 2025-01-16 19:30 | EDRN ---
Report received, patient was able to get a urine specimen, sent specimen off
[2025-01-16 19:55] VITALS: BP 111/76; BMI 23.1
[2025-01-16 20:03] LABS: Urine Character Clear (Clear)
[2025-01-16 20:23] LABS: ALT (SGPT) 35 U/L (0-35); AST (SGOT) 43 U/L (14-36); Albumin 3.9 g/dl (3.5-5.0); Alkaline Phosphatase 182 U/L (38-126); Blood Urea Nitrogen 10 mg/dl (7-17); Calcium 9.3 mg/dl (8.4-10.2); Carbon Dioxide 29 mmol/L (22-30); Chloride 96 mmol/L (98-107); Estimated Creatinine Clearance 89 ml/min; Glucose 124 mg/dl (70-99); Potassium 3.0 mmol/L (3.5-5.1); Sodium 131 mmol/L (135-145); Total Protein 7.0 g/dl (6.3-8.2); eGFR > 60.00
[2025-01-16 20:30] LABS: Urine Red Blood Cell 0-2 /HPF (0-2)
--- NOTE | 2025-01-16 21:07 | EDRN ---
MACY Jacques is in speaking with patient about results and plan.
== END 2025-01-16 21:36 | disposition home or self-care (01) ==
LOC: EMR 16:19
PROVIDERS: Physician Assistant; EMERGENCY PHYSICIAN Emergency Medicine; FAMILY PHYSICIAN Internal Medicine
DX: R50.9 Fever, unspecified (principal); Z85.038 Personal history of other malignant neoplasm of large intestine
CPT/HCPCS: 99283; 71046; 80053; 81003; 81015; 85025; 87040; 87086; 87502; 87811

== ENCOUNTER → 2025-02-24 09:01 | Outpatient (REF) | payer MEDICARE, OTHER, SELFPAY | LOC: RCS 09:01 | PROVIDERS: ATTENDING PHYSICIAN Physician Assistant; FAMILY PHYSICIAN Internal Medicine | DX: I50.30 Unspecified diastolic (congestive) heart failure (principal); I47.19 Other supraventricular tachycardia; C19 Malignant neoplasm of rectosigmoid junction | CPT/HCPCS: 93005 ==